=== PATIENT | male | born 1950 | race Caucasian/White ===

== ENCOUNTER → 2021-07-02 12:56 | Outpatient (BNVA) | payer MEDICARE, MEDICAID, SELFPAY | PROVIDERS: Family Provider Physician Assistant; PCP Physician Assistant; Visit Provider Dermatology | DX: M17.11 Unilateral primary osteoarthritis, right knee (principal); M25.562 Pain in left knee; M25.561 Pain in right knee | CPT/HCPCS: 73562 ==

== ENCOUNTER 2021-09-07 19:45 | Emergency (ER) | payer MEDICARE, MEDICAID, SELFPAY ==
[2021-09-07 20:09] VITALS: BP 129/64; PULSE 73; RESP 18; TEMP 36.8; O2SAT 96; BMI 28.5
[2021-09-07 20:33] LABS: Hematocrit 36.1 % (42.0-52.0); Lymphocytes # 1.4 10^3/uL (0.8-4.8); Lymphocytes % 42.6 %; Mean Corpuscular Hemoglobin 29.8 pg (28.0-34.0); Mean Corpuscular Volume 82.8 fl (80-94); Mean Platelet Volume 9.6 fL (7.4-10.4); Monocytes # 0.3 10^3/uL (0.2-0.9); Monocytes % 9.5 %; Neutrophils # 1.62 10^3/uL (1.8-7.7); Neutrophils % 47.9 %; Nucleated Red Blood Cells % 0 %; Platelet Count 190 10^3/cmm (130-400); Red Blood Count 4.36 10^6/uL (4.1-5.3); Red Cell Distribution Width 11.9 % (12.1-15.1); White Blood Count 3.4 10^3/uL (4.0-10.0)
[2021-09-07 20:49] LABS: SARS Covid-2 Antigen Negative (Negative)
[2021-09-07 20:54] LABS: Alanine Aminotransferase 9 U/L (0-41); Albumin Level 3.7 g/dL (3.5-5.2); Alkaline Phosphatase 70 IU/L (40-130); Anion Gap 17.8 (5-19); Aspartate Amino Transferase 17 U/L (0-40); Blood Urea Nitrogen 14 mg/dL (8-23); Carbon Dioxide 22 mmol/L (22-29); Chloride 96 mmol/L (98-107); Globulin 2.7 g/dL (1.3-4.6); Glomerular Filtration Rate 212.7 mL/min (90-130); Glucose 105 mg/dL (65-115); Osmolality Calculated 275 mOsm/kg (285-295); Potassium 3.8 mmol/L (3.5-5.1); Sodium 132 mmol/L (136-145); Total Bilirubin 0.4 mg/dL (0.15-1.2); Total Protein 6.4 g/dL (6.6-8.7)
[2021-09-07 21:03] LABS: Lactate (Lactic Acid level) 0.6 mmol/L (0.5-2.2)
--- NOTE | 2021-09-07 21:09 | XRR_ITS ---
PROCEDURE INFORMATION: Exam: XR Chest Exam date and time: 09/07/2021 9:09 PM Age: 70 years old Clinical indication: Fever; Prior surgery; Surgery date: 6+ months; Surgery type: Ribs TECHNIQUE: Imaging protocol: XR of the chest. Views: 1 view. COMPARISON: CR Chest 2 views* [id number] 01/09/2018 2:22 PM FINDINGS: Lungs: There is ill-defined opacity in the lateral lower right lung which is unchanged since 01/09/2018. Lungs are otherwise clear. Pleural spaces: Unremarkable. No pleural effusion. No pneumothorax. Heart/Mediastinum: Cardiomediastinal contours are unremarkable. Bones/joints: Bones are unremarkable. XR/XR chest 1V portable [id number] IMPRESSION: Chronic nonspecific opacity in the lower right lung, stable since 01/09/2018. No acute pulmonary abnormality. Radiation Dose CTDIVOL = (mGy): DLP = (mGy-cm)
--- NOTE | 2021-09-07 22:40 | W.ED.FEVER ---
HPI - Fever General: Chief Complaint: Fever Stated Complaint: fever Time Seen by Provider: 09/07/21 22:28 History of Present Illness: HPI Narrative: Patient is a 70-year-old male comes to the ED complaining of upper respiratory symptoms. His was just diagnosed with Covid 19. He says that yesterday he started developing a little bit of cough and some nasal drainage and congestion. His cough is dry. He also reports having a subjective fever earlier today, but he never took any antipyretic and his fever resolved. He denies any shortness of breath, chest pain, abdominal pain, nausea/vomiting, acute bladder or bowel symptoms. His main concern here in the ED was to be checked for Covid, since his just tested positive. Patient has not had the COVID-19 vaccination. Associated symptoms: Reports nasal congestion; Deny abdominal pain, flank pain, chills, chest pain, diarrhea, dysuria, headache(s), nausea or vomiting Review of Systems Const: Reports: fever(s) (subjective); Denies: chills or fatigue Eyes: Denies: change in vision or eye discomfort ENMT: Reports: nasal discharge and nasal congestion; Denies: throat pain or odynophagia Card: Denies: chest pain, palpitations, edema, swelling of feet/ankles, dyspnea on exertion or orthopnea Resp: Reports: non-productive cough; Denies: dyspnea or productive cough GI: Denies: abdominal pain, nausea, vomiting, diarrhea, constipation or hematochezia : Denies: flank pain, difficulty urinating, dysuria or hematuria Musc: Denies: neck pain, back pain or extremity swelling Skin/Breast: Denies: rash or new lesions Neuro: Denies: headache(s), numbness in extremities or weakness in extremities Physical Exam Const: COMMON NORMALS: no acute distress, patient oriented x3 and alert GENERAL APPEARANCE: cooperative and comfortable HENMT: COMMON NORMALS: normocephalic HEAD & SCALP: normocephalic MOUTH: Normal oral and palatal mucosa present THROAT: posterior oropharynx normal and uvula midline Eye: COMMON NORMALS: Equal, round and reactive pupils present PUPIL: Yes Equal, round and reactive pupils present Neck/C-Spine: COMMON NORMALS: supple GENERAL: Yes normal visual inspection Resp: COMMON NORMALS: normal respiratory effort, No retractions, No use of accessory muscles and clear to auscultation bilaterally AUSCULTATION: clear to auscultation bilaterally Cardio: COMMON NORMALS: regular rate, regular rhythm, S1 normal heart sound present, S2 normal heart sound present, No gallops present (Cardio), No clicks present (Cardio), No murmurs present (Cardio) and Peripheral pulses 2+ throughout RATE: regular rate RHYTHM: regular rhythm HEART SOUNDS: S1 normal heart sound present and S2 normal heart sound present PERIPHERAL PULSES: Peripheral pulses 2+ throughout GI: COMMON NORMALS: Normal to inspection, nondistended, normoactive bowel sounds present, Soft to palpation, non-tender and no masses PALPATION: Yes Soft to palpation : COMMON NORMALS: Yes no CVA tenderness BLADDER/KIDNEY EXAM: Yes no CVA tenderness Back/Pelvis: COMMON NORMALS: no CVA tenderness Extremity: COMMON NORMALS: normal to inspection Neuro: COMMON NORMALS: patient oriented x3 and moves all extremities SENSORIUM/ORIENTATION: Yes alert Skin: GENERAL SKIN EXAM: dry skin Course Vital Signs: Vital signs: Vital Signs Temperature 99.2 F 09/08/21 01:04 Pulse Rate 73 09/07/21 20:09 Respiratory Rate 18 09/07/21 20:09 Blood Pressure 105/67 09/08/21 01:04 Pulse Oximetry 96 09/07/21 20:09 MDM - Fever MDM Narrative: Medical decision making narrative: Patient is a 70-year-old male comes to the ED with upper respiratory symptoms. His was just diagnosed with COVID-19. His complaint is a nonproductive cough and nasal drainage and congestion. Symptoms started yesterday. Denies any chest pain or shortness of breath. Vitals stable and O2 sat 96% on room air. Exam is benign. Sodium 132 but the rest of CBC, CMP and UA was unremarkable. Rapid Covid was negative. Lactic was 0.6. Chest x-ray showed no acute findings. Patient was given IV fluids and a Covid PCR test was done and is pending. Patient was discharged with upper respiratory infection and discharged home with a prescription for azithromycin and prednisone. He was told to follow-up with his PCP in the next 5 to 7 days for reevaluation and the hospital contact him if his Covid lab comes back positive. I informed him of the monoclonal antibody infusion treatment and he said he would be interested in it and will talk to his doctor about it if his Covid test comes back positive. Return to ED precautions given. Patient understood agree with plan. Lab Data: Attestation: I reviewed the patient's lab results. Labs: Lab Results 09/07/21 09/07/21 09/07/21 20:10 20:10 20:10 WBC 3.4 10^3/uL L 10^ 3/uL (4.0-10.0) RBC 4.36 10^6/uL 10^6 /uL (4.1-5.3) Hgb 13.0 g/dL g/dL (11.7-16.6) Hct 36.1 % L % (42.0-52.0) MCV 82.8 fl fl (80-94) MCH 29.8 pg pg (28.0-34.0) MCHC 36.0 g/dL g/dL (30.0-36.0) RDW 11.9 % L % (12.1-15.1) Plt Count 190 10^3/cmm 10^3 /cmm (130-400) MPV 9.6 fL fL (7.4-10.4) Neut % (Auto) 47.9 % % Lymph % (Auto) 42.6 % % [place] % (Auto) 9.5 % % Eos % (Auto) 0.0 % % Baso % (Auto) 0.0 % % Neut # (Auto) 1.62 10^3/uL L 10 ^3/uL (1.8-7.7) Lymph # (Auto) 1.4 10^3/uL 10^3/ uL (0.8-4.8) [place] # (Auto) 0.3 10^3/uL 10^3/ uL (0.2-0.9) Eos # (Auto) 0.0 10^3/uL 10^3/ uL (0.0-0.8) Baso # (Auto) 0.0 10^3/uL 10^3/ uL (0.0-0.1) Nucleated RBC % (a uto) 0 % % Nucleated RBCs # 0.0 /100WBC /100W BC Sodium 132 mmol/L L mmol /L (136-145) Potassium 3.8 mmol/L mmol/L (3.5-5.1) Chloride 96 mmol/L L mmol/ L (98-107) Carbon Dioxide 22 mmol/L mmol/L (22-29) Anion Gap 17.8 (5-19) BUN 14 mg/dL mg/dL (8-23) Creatinine 0.4 mg/dL L mg/dL (0.7-1.2) GFR Calculation 212.7 mL/min H mL /min (90-130) Glucose 105 mg/dL mg/dL (65-115) Calculated Osmolal ity 275 mOsm/kg L mOs m/kg (285-295) Lactate 0.6 mmol/L mmol/L (0.5-2.2) Calcium 8.0 mg/dL L mg/dL (8.5-10.5) Total Bilirubin 0.4 mg/dL mg/dL (0.15-1.2) AST 17 U/L U/L (0-40) ALT 9 U/L U/L (0-41) Alkaline Phosphata se 70 IU/L IU/L (40-130) Total Protein 6.4 g/dL L g/dL (6.6-8.7) Albumin 3.7 g/dL g/dL (3.5-5.2) Globulin 2.7 g/dL g/dL (1.3-4.6) Urine Color Urine Appearance Urine pH Ur Specific Gravit y Urine Protein Urine Glucose (UA) Urine Ketones Urine Blood Urine Nitrate Urine Bilirubin Urine Urobilinogen Ur Leukocyte Sharon ase SARS-CoV-2 Ag (Rap id) 09/07/21 09/07/21 20:10 23:00 WBC RBC Hgb Hct MCV MCH MCHC RDW Plt Count MPV Neut % (Auto) Lymph % (Auto) [place] % (Auto) Eos % (Auto) Baso % (Auto) Neut # (Auto) Lymph # (Auto) [place] # (Auto) Eos # (Auto) Baso # (Auto) Nucleated RBC % (a uto) Nucleated RBCs # Sodium Potassium Chloride Carbon Dioxide Anion Gap BUN Creatinine GFR Calculation Glucose Calculated Osmolal ity Lactate Calcium Total Bilirubin AST ALT Alkaline Phosphata se Total Protein Albumin Globulin Urine Color Yellow (Yellow) Urine Appearance Hazy A (CLEAR) Urine pH 6.5 (5-7) Ur Specific Gravit y 1.020 (1.005-1.030) Urine Protein Neg (Negative) Urine Glucose (UA) Norm (Normal) Urine Ketones 1+ H (Negative) Urine Blood Neg (Negative) Urine Nitrate Negative (Negative) Urine Bilirubin Neg (Negative) Urine Urobilinogen 1 mg/dL H mg/dL (Negative) Ur Leukocyte Sharon ase Negative (Negative) SARS-CoV-2 Ag (Rap id) Negative (Negative) Imaging Data^: CXR: Attestation: I personally reviewed and interpreted this imaging study as follows: Radiologist's impression: [address] [address] XRay Report Signed Patient: Adarsh Pennington Unit #: [id number] : [id number] Age/Sex: 70 / M ADM Date: 09/07/21 Loc: ER Room/Bed: Attending Dr: Ordering Provider/Ordering MD: Home Felix MD Date of Service: 09/07/21 Procedure(s): XR chest 1V portable [id number] Accession Number(s): [id number] Report Number: [id number] PROCEDURE INFORMATION: Exam: XR Chest Exam date and time: 09/07/2021 9:09 PM Age: 70 years old Clinical indication: Fever; Prior surgery; Surgery date: 6+ months; Surgery type: Ribs TECHNIQUE: Imaging protocol: XR of the chest. Views: 1 view. COMPARISON: CR Chest 2 views* [id number] 01/09/2018 2:22 PM FINDINGS: Lungs: There is ill-defined opacity in the lateral lower right lung which is unchanged since 01/09/2018. Lungs are otherwise clear. Pleural spaces: Unremarkable. No pleural effusion. No pneumothorax. Heart/Mediastinum: Cardiomediastinal contours are unremarkable. Bones/joints: Bones are unremarkable. XR/XR chest 1V portable [id number] IMPRESSION: Chronic nonspecific opacity in the lower right lung, stable since 01/09/2018. No acute pulmonary abnormality. Radiation Dose CTDIVOL = (mGy): DLP = (mGy-cm) Dictated By: Timmy South MD Signed By: Timmy South MD Signed Date/Time: 09/07/212149 DD/ 08 Discharge Plan Discharge Patient Disposition: Home Clinical Impression: Upper respiratory infection with cough and congestion Condition: Stable Prescriptions: New azithromycin 250 mg tablet See Rx Instructions .ROUTE .COMPLEX Qty: 6 RF: 0 prednisone 20 mg tablet 20 mg PO BID 5 Days Qty: 10 RF: 0 Discharge Orders: Discharge ED (Routine); Ordered 09/08/21 Ordered By: Dimitri Camilo Referrals: Jovani Mcnally [Primary Care Provider] - Discharge Diet: Regular Discharge Activity: Increase activity as tolerated Patient Instructions: Upper Respiratory Infection (DC) Activity Restrictions/Additional Instructions: Follow-up with medical provider as directed in 3 to 5 days for reevaluation. Your rapid COVID-19 test was negative here in the ED. The Covid PCR test is pending and they will call you with results in the next 24 to 48 hours. Take medications as prescribed. Return to the ER or your medical provider if condition worsens. Please read and understand discharge instructions. Thank you for choosing [facility] for your healthcare needs today. Please realize this is an emergency room and that we are providing you with a medical screening exam and this may not be complete and all inclusive of all the testing and or work up that you may need to determine your ailment or severity of your illness. It is very important that you follow up as instructed or that you return to the Emergency Department should you have concerns or if your condition changes or worsens in any way. Coding Level of Care Code ED Delivery Driver for Dayo [place]aco Exam Comprehensive
[2021-09-07 23:16] LABS: Add Urine Microscopic? NO; Charge for UA Resulting for Rev
[2021-09-07 23:26] LABS: Bilirubin Urine Neg (Negative); Blood Urine Neg (Negative); Glucose Urine UA Norm (Normal); Ketones Urine 1+ (Negative); Leukocyte Esterase Urine Negative (Negative); Nitrate Urine Negative (Negative); Protein Urine Neg (Negative); Urine Appearance Hazy (CLEAR); Urine Color Yellow (Yellow); Urobilinogen Urine 1 mg/dL (Negative); pH Urine 6.5 (5-7)
[2021-09-07] MEDS: sodium chloride 0.9% 500 ML 999 ML IV (23:29)
[2021-09-08 01:04] VITALS: BP 105/67; TEMP 37.3
== END 2021-09-08 00:10 | disposition home or self-care (01) ==
PROVIDERS: Emergency Medicine; Emergency Provider Physician Assistant; PCP Physician Assistant
DX: J06.9 Acute upper respiratory infection, unspecified (principal); Z20.822 Contact with and (suspected) exposure to COVID-19
CPT/HCPCS: 71045; 80053; 81003; 83605; 85025; 87426; 99283; J7040

== ENCOUNTER 2021-11-23 08:31 | Inpatient (IN) | payer MEDICARE, MEDICAID, SELFPAY ==
[2021-11-23] VITALS (104 sets, daily range): BP systolic 101–163; BP diastolic 62–103; PULSE 89–118; RESP 16–23; TEMP 37; O2SAT 95–99
--- NOTE | 2021-11-23 08:54 | XR_ITS ---
WS: [id number] CHEST XRAY TECHNIQUE: Portable chest. CLINICAL INFORMATION: SOB COMPARISON: September 07, 2021 6 FINDINGS: Heart: Normal cardiac silhouette. Tortuous thoracic aorta. Lungs: Chronic emphysematous changes. Chronic patchy infiltrates in right lower lobe with pleural david ques unchanged since September 07, 2021. Left lung is well aerated. Bones: Thoracic curve convex left. Hypertrophic changes thoracic spine. XR/XR chest 1V portable [id number] IMPRESSION: 1. Chronic patchy infiltrates in right lower lobe with pleural plaques unchang ed since September 07, 2021. No new infiltrates. 2. No other significant changes from previous.
--- NOTE | 2021-11-23 08:55 | W.ED.SOB ---
Documented by User: BUBBA Mosqueda 11/23/21 15:14 HPI - SOB/Dyspnea General: Chief Complaint: Shortness of Breath/Dyspnea Stated Complaint: SOB, BRONCHITIS, FATIGUE Time Seen by Provider: 11/23/21 08:48 Source: patient Mode of arrival: EMS Limitations: no limitations History of Present Illness: HPI Narrative: Patient is a 71-year-old male who presents to ED today with a complaint of shortness of breath and difficulty breathing over the last few days (although states this has been present for closer to two months). Patient states he was seen here 2 weeks ago and diagnosed with bronchitis and placed on antibiotics (review of documentation states his last visit here was in August-at that time he had had positive COVID exposure-rapid COVID was negative-PCR was supposed to be pending but looks like was never ran). He was diagnosed with bronchitis and placed on antibiotics. He states he has been seen again for similar symptoms through PCP and placed on Clindamycin-still taking this. Patient's triage states he is on 2L O2 via nasal cannula at baseline however patient tells me he does not normally wear oxygen. He has not been running fevers. He has had a a little bit of a cough but points to this throat like he needs to clear it. He is not having any chest pains. No abdominal pain, vomiting, diarrhea. MD elicited complaint: shortness of breath and cough Onset (ago): day(s) Timing: constant Severity: moderate Exacerbating factors: exertion Relieving factors: nothing Associated symptoms: Reports chest congestion; Deny abdominal pain, chest pain, extremity pain, fever(s), hemoptysis, lightheadedness, nausea, palpitations, syncope or vomiting Related Data: Home oxygen amount: none Review of Systems Const: Reports: fatigue; Denies: fever(s), chills or body aches ENMT: Denies: throat pain, odynophagia, nasal discharge or nasal congestion Card: Reports: dyspnea on exertion; Denies: chest pain, palpitations, irregular heart rhythm, edema, lightheadedness, syncope or pre-syncope Resp: Reports: dyspnea, productive cough and chest congestion; Denies: wheezing or hemoptysis GI: Denies: abdominal pain, nausea, vomiting or diarrhea Musc: Denies: neck pain, back pain, extremity pain or joint pain Skin/Breast: Denies: rash Neuro: Denies: headache(s) Physical Exam Const: COMMON NORMALS: patient oriented x3, no limitations and alert GENERAL APPEARANCE: cooperative and in distress (mild respiratory distress ) ORIENTATION/CONSCIOUSNESS: Yes awake, Yes oriented to person, Yes oriented to place and Yes oriented to time HENMT: COMMON NORMALS: normocephalic and atraumatic HEAD & SCALP: normocephalic and atraumatic Neck/C-Spine: COMMON NORMALS: full ROM and no lymphadenopathy GENERAL: No anterior neck swelling and No submandibular swelling Lymph: LYMPHATIC: no lymphadenopathy noted Chest: COMMONS NORMALS: normal inspection of the chest and normal palpation of entire chest wall Resp: EFFORT & INSPECTION: Yes tachypneic, Yes respiratory distress (stridor noted at rest), Yes labored and Yes uses accessory muscles AUSCULTATION: other (upper airway noise) Cardio: COMMON NORMALS: regular rhythm RATE: tachycardic RHYTHM: regular rhythm GI: COMMON NORMALS: Normal to inspection, nondistended, normoactive bowel sounds present, Soft to palpation, non-tender and no masses PALPATION: Yes Soft to palpation Extremity: COMMON NORMALS: normal to inspection GENERAL: Yes normal exam except as noted Neuro: CHRIS COMA SCALE: document GCS findings Chris coma scale eye opening: Spontaneous Chris coma scale verbal response: Orientated [place] coma scale motor response: Obey commands Chris coma scale total score: 15 COMMON NORMALS: patient oriented x3 SENSORIUM/ORIENTATION: Yes alert, Yes oriented to person, Yes oriented to place and Yes oriented to time Skin: COMMON NORMALS: no rashes or lesions noted GENERAL SKIN EXAM: no rashes or lesions noted Course Consultations: Consultation #1: Dr. Cerda-stated he would graciously consult on patient and take to OR for tracheostomy if we had bed availability (which we do not); he stated he did not recommend this patient to be an ER HOLD until we had a bed and recommended transfer Vital Signs: Vital signs: Vital Signs Temperature 97.7 F 11/24/21 00:32 Pulse Rate 90 11/24/21 19:00 Respiratory Rate 23 H 11/24/21 19:00 Blood Pressure 125/70 11/24/21 19:00 Pulse Oximetry 96 11/24/21 19:00 MDM - SOB/Dyspnea Lab Data : 11/23/21 10:21 11/23/21 10:21 Labs/Radiology: Radiology Impressions Neck CT 11/23/21 11:38 IMPRESSION: 1. Irregular soft tissue mass involving the supraglottic and glottic airway centered in the left piriform sinus involving the vocal cords. This results in severe left to right narrowing of the glottis. Findings most compatible with neoplasm. Recommend direct visualization and biopsy. 2. Involvement of the left aryepiglottic fold extending into the left piriform sinus. Erosive changes involving the left greater than right thyroid cartilage, cricoid cartilage and arytenoids. 3. Involvement of the anterior commissure with midline crossing. 4. 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 This can be further evaluated with PET CT or MRI. 5. No visualized cervical lymphadenopathy. 6. Retention cyst right maxillary sinus. 7. Normal posterior nasopharynx and parapharyngeal fat. Notified BUBBA Mosqueda at 11/23/2021 2:40 PM. Chest X-Ray 11/24/21 08:04 IMPRESSION: Interval tracheostomy placement as above. Laboratory Results WBC 8.0 10^3/uL (4.0-10.0) 11/23/21 10:21 RBC 4.90 10^6/uL (4.1-5.3) 11/23/21 10:21 Hgb 14.8 g/dL (11.7-16.6) 11/23/21 10:21 Hct 42.6 % (42.0-52.0) 11/23/21 10:21 MCV 86.9 fl (80-94) 11/23/21 10:21 MCH 30.2 pg (28.0-34.0) 11/23/21 10:21 MCHC 34.7 g/dL (30.0-36.0) 11/23/21 10:21 RDW 12.5 % (12.1-15.1) 11/23/21 10:21 Plt Count 307 10^3/cmm (130-400) 11/23/21 10:21 MPV 9.4 fL (7.4-10.4) 11/23/21 10:21 Neut % (Auto) 69.5 % 11/23/21 10:21 Lymph % (Auto) 23.5 % 11/23/21 10:21 Andrew % (Auto) 6.4 % 11/23/21 10:21 Eos % (Auto) 0.1 % 11/23/21 10:21 Baso % (Auto) 0.4 % 11/23/21 10:21 Neut # (Auto) 5.57 10^3/uL (1.8-7.7) 11/23/21 10:21 Lymph # (Auto) 1.9 10^3/uL (0.8-4.8) 11/23/21 10:21 Andrew # (Auto) 0.5 10^3/uL (0.2-0.9) 11/23/21 10:21 Eos # (Auto) 0.0 10^3/uL (0.0-0.8) 11/23/21 10:21 Baso # (Auto) 0.0 10^3/uL (0.0-0.1) 11/23/21 10:21 Nucleated RBC % (auto) 0 % 11/23/21 10:21 Nucleated RBCs # 0.0 /100WBC 11/23/21 10:21 D-Dimer 0.54 ug/mIFEU (0-0.59) 11/23/21 11:01 Specimen Type Arterial 11/23/21 10:32 Sample Site Brachial, right 11/23/21 10:32 ABG pH 7.40 (7.35-7.45) 11/23/21 10:32 ABG pCO2 51.8 mmHg (35-45) H 11/23/21 10:32 ABG pO2 154.0 mmHg (80.0-100.0) H 11/23/21 10:32 ABG HCO3 31.8 mmol/L (22-26) H 11/23/21 10:32 ABG O2 Saturation 99.8 11/23/21 10:32 ABG Base Excess 5.4 mmol/L (-2.0-2.0) H 11/23/21 10:32 [place]ura Test N/a 11/23/21 10:32 A-a O2 Gradient 1.1 mmHg (5-10) L 11/23/21 10:32 Hematocrit 46.6 % (42-52) 11/23/21 10:32 Hgb O2 Saturation 99.0 % (95-100) 11/23/21 10:32 Carboxyhemoglobin 0.6 %THgb (0.4-20.1) 11/23/21 10:32 Methemoglobin 0.2 % (0.4-1.5) L 11/23/21 10:32 Total Hemoglobin 15.2 g/dL (14-18) 11/23/21 10:32 Sodium 139.0 mmol/L (131-143) 11/23/21 10:32 Potassium 4.2 mmol/L (3.5-5.0) 11/23/21 10:32 Glucose 101.0 mg/dL (70-115) 11/23/21 10:32 Ionized Calcium 1.2 mmol/L (1.1-1.4) 11/23/21 10:32 O2 Delivery Device Nc 11/23/21 10:32 O2 Liters/Min 3.0 % 11/23/21 10:32 FiO2 32.0 % 11/23/21 10:32 Supervisor Vacuum Metalizing ID Amh 11/23/21 10:32 Sodium 132 mmol/L (136-145) L 11/23/21 10:21 Potassium 4.3 mmol/L (3.5-5.1) 11/23/21 10:21 Chloride 97 mmol/L (98-107) L 11/23/21 10:21 Carbon Dioxide 20 mmol/L (22-29) L 11/23/21 10:21 Anion Gap 19.3 (5-19) H 11/23/21 10:21 BUN 13 mg/dL (8-23) 11/23/21 10:21 Creatinine 0.4 mg/dL (0.7-1.2) L 11/23/21 10:21 GFR Calculation Not Reportable 11/23/21 10:21 Glucose 92 mg/dL (65-115) 11/23/21 10:21 Calculated Osmolality 274 mOsm/kg (285-295) L 11/23/21 10:21 Lactic Acid 1.0 mmol/L (0.5-2.2) 11/23/21 10:21 Calcium 9.6 mg/dL (8.5-10.5) 11/23/21 10:21 Total Bilirubin 0.4 mg/dL (0.15-1.2) 11/23/21 10:21 AST 20 U/L (0-40) 11/23/21 10:21 ALT 10 U/L (0-41) 11/23/21 10:21 Alkaline Phosphatase 86 IU/L (40-130) 11/23/21 10:21 Troponin T Baseline 21 ng/L (0-15) H 11/23/21 10:21 Troponin T 120 Minute 25.66 ng/L (0-15) H 11/23/21 11:28 Delta Troponin T 4.66 ABS# (0-10) 11/23/21 11:28 Troponin T Hi Sens 6Hr 37.75 ng/L (0-15) H 11/23/21 17:00 Troponin T Hi Sens 6Hr Delta 16.75 ng/L (0-12) H* 11/23/21 17:00 NT-Pro-B Natriuret Pep 82 pg/mL (0-125) 11/23/21 10:21 Total Protein 6.9 g/dL (6.6-8.7) 11/23/21 10:21 Albumin 4.0 g/dL (3.5-5.2) 11/23/21 10:21 Globulin 2.9 g/dL (1.3-4.6) 11/23/21 10:21 Procalcitonin 0.04 ng/mL (0-0.5) 11/23/21 10:21 SARS-CoV-2 Ag (Rapid) Negative (Negative) 11/23/21 10:00 Discharge Plan Discharge Patient Disposition: Admitted As Inpatient Admit Provider: Ezio Cerda Clinical Impression: Stridor, Supraglottic mass Condition: Stable Coding Level of Care Code ED Battery Container Finishing Hand for Chg Fwd Exam Comprehensive Documented by User: Home Felix MD 11/24/21 20:37 HPI - SOB/Dyspnea General: Chief Complaint: Shortness of Breath/Dyspnea Stated Complaint: SOB, BRONCHITIS, FATIGUE Time Seen by Provider: 11/23/21 08:48 Physical Exam Neuro: CHRIS COMA SCALE: document GCS findings Chris coma scale total score: 15 Course Vital Signs: Vital signs: Vital Signs Temperature 97.7 F 11/24/21 00:32 Pulse Rate 90 11/24/21 19:00 Respiratory Rate 23 H 11/24/21 19:00 Blood Pressure 125/70 11/24/21 19:00 Pulse Oximetry 96 11/24/21 19:00 MDM - SOB/Dyspnea Medical Decision Making Patient is a 71-year-old male presented to the emergency room with stridor and difficulty breathing. Patient states that the symptoms has been going on for last 3 to 4 days however per patient's , still has been progressively getting worse for the last 3-month. On CT scan of the neck patient is found to have necrotic lesion in the glottic/subglottic area. Patient continue to be satting well on room air however at rest but has noted to be stridorous. Patient received steroids for possible laryngeal edema. At the present time, case was discussed by physician business services assistant provider Jessica Flores with Dr. Regan from ENT who tells me that given this there is no beds, patient will not be able to undergo tracheostomy. At the present time, waiting for transfer to outside hospital for tracheostomy. Case signed out ot Dr. Raygoza. Patient presented here with stridor does have a supraglottic mass I did speak to Dr. Cerda who plans on taking patient to the OR tomorrow we do have an ICU bed here available currently will admit to the ICU under hospitalist with Dr. Regan consulted. Lab Data : 11/23/21 10:21 11/23/21 10:21 Labs/Radiology: Radiology Impressions Neck CT 11/23/21 11:38 IMPRESSION: 1. Irregular soft tissue mass involving the supraglottic and glottic airway centered in the left piriform sinus involving the vocal cords. This results in severe left to right narrowing of the glottis. Findings most compatible with neoplasm. Recommend direct visualization and biopsy. 2. Involvement of the left aryepiglottic fold extending into the left piriform sinus. Erosive changes involving the left greater than right thyroid cartilage, cricoid cartilage and arytenoids. 3. Involvement of the anterior commissure with midline crossing. 4. 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 This can be further evaluated with PET CT or MRI. 5. No visualized cervical lymphadenopathy. 6. Retention cyst right maxillary sinus. 7. Normal posterior nasopharynx and parapharyngeal fat. Notified BUBBA Mosqueda at 11/23/2021 2:40 PM. Chest X-Ray 11/24/21 08:04 IMPRESSION: Interval tracheostomy placement as above. Laboratory Results WBC 8.0 10^3/uL (4.0-10.0) 11/23/21 10:21 RBC 4.90 10^6/uL (4.1-5.3) 11/23/21 10:21 Hgb 14.8 g/dL (11.7-16.6) 11/23/21 10:21 Hct 42.6 % (42.0-52.0) 11/23/21 10:21 MCV 86.9 fl (80-94) 11/23/21 10:21 MCH 30.2 pg (28.0-34.0) 11/23/21 10:21 MCHC 34.7 g/dL (30.0-36.0) 11/23/21 10:21 RDW 12.5 % (12.1-15.1) 11/23/21 10:21 Plt Count 307 10^3/cmm (130-400) 11/23/21 10:21 MPV 9.4 fL (7.4-10.4) 11/23/21 10:21 Neut % (Auto) 69.5 % 11/23/21 10:21 Lymph % (Auto) 23.5 % 11/23/21 10:21 Andrew % (Auto) 6.4 % 11/23/21 10:21 Eos % (Auto) 0.1 % 11/23/21 10:21 Baso % (Auto) 0.4 % 11/23/21 10:21 Neut # (Auto) 5.57 10^3/uL (1.8-7.7) 11/23/21 10:21 Lymph # (Auto) 1.9 10^3/uL (0.8-4.8) 11/23/21 10:21 Andrew # (Auto) 0.5 10^3/uL (0.2-0.9) 11/23/21 10:21 Eos # (Auto) 0.0 10^3/uL (0.0-0.8) 11/23/21 10:21 Baso # (Auto) 0.0 10^3/uL (0.0-0.1) 11/23/21 10:21 Nucleated RBC % (auto) 0 % 11/23/21 10:21 Nucleated RBCs # 0.0 /100WBC 11/23/21 10:21 D-Dimer 0.54 ug/mIFEU (0-0.59) 11/23/21 11:01 Specimen Type Arterial 11/23/21 10:32 Sample Site Brachial, right 11/23/21 10:32 ABG pH 7.40 (7.35-7.45) 11/23/21 10:32 ABG pCO2 51.8 mmHg (35-45) H 11/23/21 10:32 ABG pO2 154.0 mmHg (80.0-100.0) H 11/23/21 10:32 ABG HCO3 31.8 mmol/L (22-26) H 11/23/21 10:32 ABG O2 Saturation 99.8 11/23/21 10:32 ABG Base Excess 5.4 mmol/L (-2.0-2.0) H 11/23/21 10:32 [place]ura Test N/a 11/23/21 10:32 A-a O2 Gradient 1.1 mmHg (5-10) L 11/23/21 10:32 Hematocrit 46.6 % (42-52) 11/23/21 10:32 Hgb O2 Saturation 99.0 % (95-100) 11/23/21 10:32 Carboxyhemoglobin 0.6 %THgb (0.4-20.1) 11/23/21 10:32 Methemoglobin 0.2 % (0.4-1.5) L 11/23/21 10:32 Total Hemoglobin 15.2 g/dL (14-18) 11/23/21 10:32 Sodium 139.0 mmol/L (131-143) 11/23/21 10:32 Potassium 4.2 mmol/L (3.5-5.0) 11/23/21 10:32 Glucose 101.0 mg/dL (70-115) 11/23/21 10:32 Ionized Calcium 1.2 mmol/L (1.1-1.4) 11/23/21 10:32 O2 Delivery Device Nc 11/23/21 10:32 O2 Liters/Min 3.0 % 02/01/22 10:32 FiO2 32.0 % 11/23/21 10:32 Supervisor Vacuum Metalizing ID Amh 11/23/21 10:32 Sodium 132 mmol/L (136-145) L 11/23/21 10:21 Potassium 4.3 mmol/L (3.5-5.1) 11/23/21 10:21 Chloride 97 mmol/L (98-107) L 11/23/21 10:21 Carbon Dioxide 20 mmol/L (22-29) L 11/23/21 10:21 Anion Gap 19.3 (5-19) H 11/23/21 10:21 BUN 13 mg/dL (8-23) 11/23/21 10:21 Creatinine 0.4 mg/dL (0.7-1.2) L 11/23/21 10:21 GFR Calculation Not Reportable 11/23/21 10:21 Glucose 92 mg/dL (65-115) 11/23/21 10:21 Calculated Osmolality 274 mOsm/kg (285-295) L 11/23/21 10:21 Lactic Acid 1.0 mmol/L (0.5-2.2) 11/23/21 10:21 Calcium 9.6 mg/dL (8.5-10.5) 11/23/21 10:21 Total Bilirubin 0.4 mg/dL (0.15-1.2) 11/23/21 10:21 AST 20 U/L (0-40) 11/23/21 10:21 ALT 10 U/L (0-41) 11/23/21 10:21 Alkaline Phosphatase 86 IU/L (40-130) 11/23/21 10:21 Troponin T Baseline 21 ng/L (0-15) H 11/23/21 10:21 Troponin T 120 Minute 25.66 ng/L (0-15) H 11/23/21 11:28 Delta Troponin T 4.66 ABS# (0-10) 11/23/21 11:28 Troponin T Hi Sens 6Hr 37.75 ng/L (0-15) H 11/23/21 17:00 Troponin T Hi Sens 6Hr Delta 16.75 ng/L (0-12) H* 11/23/21 17:00 NT-Pro-B Natriuret Pep 82 pg/mL (0-125) 11/23/21 10:21 Total Protein 6.9 g/dL (6.6-8.7) 11/23/21 10:21 Albumin 4.0 g/dL (3.5-5.2) 11/23/21 10:21 Globulin 2.9 g/dL (1.3-4.6) 11/23/21 10:21 Procalcitonin 0.04 ng/mL (0-0.5) 11/23/21 10:21 SARS-CoV-2 Ag (Rapid) Negative (Negative) 11/23/21 10:00 Discharge Plan Discharge Patient Disposition: Admitted As Inpatient Admit Provider: Ezio Cerda Clinical Impression: Stridor, Supraglottic mass Condition: Stable Coding Level of Care Code ED Battery Container Finishing Hand for Chg Fwd Exam Comprehensive Documented by User: Tiara Raygoza MD 11/24/21 01:09 HPI - SOB/Dyspnea General: Chief Complaint: Shortness of Breath/Dyspnea Stated Complaint: SOB, BRONCHITIS, FATIGUE Time Seen by Provider: 11/23/21 08:48 Physical Exam Neuro: CHRIS COMA SCALE: document GCS findings [place] coma scale total score: 15 Course Vital Signs: Vital signs: Vital Signs Temperature 97.7 F 11/24/21 00:32 Pulse Rate 90 11/24/21 19:00 Respiratory Rate 23 H 11/24/21 19:00 Blood Pressure 125/70 11/24/21 19:00 Pulse Oximetry 96 11/24/21 19:00 MDM - SOB/Dyspnea Medical Decision Making Patient is a 71-year-old male presented to the emergency room with stridor and difficulty breathing. Patient states that the symptoms has been going on for last 3 to 4 days however per patient's , still has been progressively getting worse for the last 3-month. On CT scan of the neck patient is found to have necrotic lesion in the glottic/subglottic area. Patient continue to be satting well on room air however at rest but has noted to be stridorous. Patient received steroids for possible laryngeal edema. At the present time, case was discussed by physician business services assistant provider Jessica Flores with Dr. Regan from ENT who tells me that given this there is no beds, patient will not be able to undergo tracheostomy. At the present time, waiting for transfer to outside hospital tracheostomy. Case signed out ot Dr. Raygoza. Patient presented here with stridor does have a supraglottic mass I did speak to Dr. Nichole who plans on taking patient to the OR tomorrow we do have an ICU bed here available currently will admit to the ICU under hospitalist with Dr. Regan consulted. Lab Data : 11/23/21 10:21 11/23/21 10:21 Labs/Radiology: Radiology Impressions Neck CT 11/23/21 11:38 IMPRESSION: 1. Irregular soft tissue mass involving the supraglottic and glottic airway centered in the left piriform sinus involving the vocal cords. This results in severe left to right narrowing of the glottis. Findings most compatible with neoplasm. Recommend direct visualization and biopsy. 2. Involvement of the left aryepiglottic fold extending into the left piriform sinus. Erosive changes involving the left greater than right thyroid cartilage, cricoid cartilage and arytenoids. 3. Involvement of the anterior commissure with midline crossing. 4. 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 This can be further evaluated with PET CT or MRI. 5. No visualized cervical lymphadenopathy. 6. Retention cyst right maxillary sinus. 7. Normal posterior nasopharynx and parapharyngeal fat. Notified BUBBA Mosqueda at 11/23/2021 2:40 PM. Chest X-Ray 11/24/21 08:04
--- NOTE | 2021-11-23 09:25 | ECG_ITS ---
[facility] Test Date: 2021-11-23 Pat Name: Adarsh Pennington Department: Room: Gender: Male Networking Administrator: : 1950 Requested By: Jessica Flores Order Number: [id number] Rina MD: Chula Velasquez M.D. Measurements Intervals [place] Rate: 106 P: 60 VT: 144 QRS: 70 QRSD: 85 T: 40 QT: 313 QTc: 417 Interpretive Statements SINUS TACHYCARDIA ABNORMAL RHYTHM ECG Compared to ECG 08/24/2018 10:17:14 Sinus rhythm no longer present Electronically Signed On 11-23-2021 17:08:42 ROLLING MACHINE OPERATOR AUTOMATIC by Chula Velasquez M.D. [id number]
[2021-11-23 10:34] LABS: Basophils % 0.4 %; Eosinophils % 0.1 %; Hematocrit 42.6 % (42.0-52.0); Hemoglobin 14.8 g/dL (11.7-16.6); Lymphocytes # 1.9 10^3/uL (0.8-4.8); Lymphocytes % 23.5 %; Mean Corpuscular HGB Conc 34.7 g/dL (30.0-36.0); Mean Corpuscular Hemoglobin 30.2 pg (28.0-34.0); Mean Corpuscular Volume 86.9 fl (80-94); Mean Platelet Volume 9.4 fL (7.4-10.4); Monocytes # 0.5 10^3/uL (0.2-0.9); Monocytes % 6.4 %; Neutrophils # 5.57 10^3/uL (1.8-7.7); Neutrophils % 69.5 %; Nucleated Red Blood Cells % 0 %; Platelet Count 307 10^3/cmm (130-400); Red Cell Distribution Width 12.5 % (12.1-15.1)
[2021-11-23 10:44] LABS: ABG PCO2 51.8 mmHg (35-45); Alveolar-Arterial Oxygen Gradi 1.1 mmHg (5-10); Arterial Blood Gas Hematocrit 46.6 % (42-52); Base Excess ABG 5.4 mmol/L (-2.0-2.0); Blood Gas Operator Identificat AMH; Blood Gas Sample Site Brachial, right; Blood Gas Sample Type Arterial; Carboxyhemoglobin 0.6 %THgb (0.4-20.1); HCO3 ABG 31.8 mmol/L (22-26); Ionized Calcium Level - ABG 1.2 mmol/L (1.1-1.4); Methemoglobin 0.2 % (0.4-1.5); Oxygen Device NC; Oxygen Saturation ABG 99.8; Potassium Level - ABG 4.2 mmol/L (3.5-5.0); Total Hemoglobin 15.2 g/dL (14-18)
[2021-11-23 10:56] LABS: SARS Covid-2 Antigen Negative (Negative)
[2021-11-23 11:18] LABS: NT Pro B Type Natriuretic Pept 82 pg/mL (0-125); Procalcitonin 0.04 ng/mL (0-0.5)
[2021-11-23 11:22] LABS: Troponin(5th) Baseline 21 ng/L (0-15)
[2021-11-23 11:26] LABS: D Dimer 0.54 ug/mIFEU (0-0.59)
[2021-11-23 11:29] LABS: Alanine Aminotransferase 10 U/L (0-41); Alkaline Phosphatase 86 IU/L (40-130); Blood Urea Nitrogen 13 mg/dL (8-23); Calcium 9.6 mg/dL (8.5-10.5); Carbon Dioxide 20 mmol/L (22-29); Chloride 97 mmol/L (98-107); Globulin 2.9 g/dL (1.3-4.6); Glucose 92 mg/dL (65-115); Osmolality Calculated 274 mOsm/kg (285-295); Sodium 132 mmol/L (136-145); Total Bilirubin 0.4 mg/dL (0.15-1.2); Total Protein 6.9 g/dL (6.6-8.7)
[2021-11-23 11:30] LABS: Anion Gap 19.3 (5-19); Aspartate Amino Transferase 20 U/L (0-40); Potassium 4.3 mmol/L (3.5-5.1)
--- NOTE | 2021-11-23 11:38 | CT_ITS ---
WS: [id number] CT NECK TECHNIQUE: Contrast-enhanced CT of the neck with coronal and sagittal reformatted images. CLINICAL INFORMATION: stridor, trouble breathing COMPARISON: None. DLP: 444.[address] scans at [facility] use at least one of these dose optimization techniques: automated e xposure control; mA and/or kV adjustment per patient size (includes targeted exams where dose is matc hed to clinical indication); or iterative reconstruction. FINDINGS: Large soft tissue mass involving the left aryepiglottic fold with filling of the left piriform sinus. This is mainly centered at the level of the vocal cords with erosive changes involving the arytenoid s and cricoid cartilage. Involvement of the left greater than right thyroid cartilage. Severe left to right narrowing of the glottis. Subglottic airway is patent. Involvement of the anterior commissure crossing midline. Irregular soft tissue mass measures approximately 3.0 x 2.0 x 2.1 CM. Diffuse filli ng of the paraglottic space left greater than right extending to the posterior pharyngeal wall. Small retention cyst right maxillary sinus. Mastoid air cells and paranasal sinuses are well aerated. Normal parapharyngeal fat. Parotid glands are normal. No visualized cervical lymphadenopathy. Modera te right greater than left carotid bulb calcification. Lung apices are well aerated. Vague sclerotic foci within the cervical spine and upper thoracic spine nonspecific but suspicious fo r metastatic disease more prominent at C3-C6. This can be further evaluated with PET CT or MRI. Disc osteophyte complexes at C4-5 and C5-6. CT/CT neck w con* [id number] IMPRESSION: 1. Irregular soft tissue mass involving the supraglottic and glottic airway ce ntered in the left piriform sinus involving the vocal cords. This results in se ángel left to right narrowing of the glottis. Findings most compatible with neop lasm. Recommend direct visualization and biopsy. 2. Involvement of the left aryepiglottic fold extending into the left piriform sinus. Erosive changes involving the left greater than right thyroid cartilage , cricoid cartilage and arytenoids. 3. Involvement of the anterior commissure with midline crossing. 4. Suspected sclerotic metastasis in the cervical spine more prominent at C3-C 6. This can be further evaluated with PET CT or MRI. 5. No visualized cervical lymphadenopathy. 6. Retention cyst right maxillary sinus. 7. Normal posterior nasopharynx and parapharyngeal fat. Notified BUBBA Mosqueda at 11/23/2021 2:40 PM.
[2021-11-23] MEDS: ipratropium-albuterol 3 mL Neb INHALATION (11:45)
[2021-11-23 11:59] LABS: Troponin 5 2HR 25.66 ng/L (0-15); Troponin 5 2HR Delta 4.66 ABS# (0-10)
[2021-11-23] MEDS: sodium chloride 0.9% 1,000 ML 999 ML IV (12:24)
[2021-11-23] MEDS: iohexol 300 mg/mL 100 mL Btl IV (13:30)
--- NOTE | 2021-11-23 15:25 | ECG_ITS ---
[facility] Test Date: 2021-11-23 Pat Name: Adarsh Pennington Department: Room: Gender: Male Supervisor Felting: : 1950 Requested By: Jessica Flores Order Number: [id number] Flynn MD: Chula Velasquez M.D. Measurements Intervals [place] Rate: 98 P: 57 MT: 166 QRS: 58 QRSD: 90 T: 35 QT: 329 QTc: 420 Interpretive Statements SINUS RHYTHM Compared to ECG 11/23/2021 09:42:34 Sinus tachycardia no longer present Electronically Signed On 11-23-2021 17:12:05 AFTER SCHOOL PROGRAM ASSISTANT by Chula Velasquez M.D. [id number]
[2021-11-23 18:11] LABS: Troponin 5 6HR 37.75 ng/L (0-15)
[2021-11-23 18:13] LABS: Troponin 5 6HR Delta 16.75 ng/L (0-12)
[2021-11-23] MEDS: aspirin 325 mg Tablet PO (18:29)
[2021-11-23] MEDS: racepinephrine 0.5 mL Neb INHALATION (23:51)
[2021-11-24] VITALS (51 sets, daily range): BP systolic 100–166; BP diastolic 63–107; PULSE 69–101; RESP 12–30; TEMP 36.5; O2SAT 35–100
--- NOTE | 2021-11-24 00:30 | PM.HP ---
Providers/Chief Complaint Primary Care Provider: Jovani Mcnally Chief Complaint: SOB, BRONCHITIS, FATIGUE History of Present Illness Adarsh Pennington is a 71 year old male with no significant past medical history came in with chief complaint of shortness of breath going on for the last 2 months, patient was in the ER 2 weeks ago with similar complaints and was diagnosed with Bronchitis and was placed on oral antibiotics. His shortness of breath has never improved in spite of being on adequate antibiotic. Today when he came in the ER CT neck w con was done as he was having stridor's: CT neck w con: 1.? Irregular soft tissue mass involving the supraglottic and glottic airway centered in the left piriform sinus involving the vocal cords. This results in severe left to right narrowing of the glottis. Findings most compatible with neoplasm. Recommend direct visualization and biopsy. 2.? Involvement of the left aryepiglottic fold extending into the left piriform sinus. Erosive changes involving the left greater than right thyroid cartilage, cricoid cartilage and arytenoids. 3. ? Involvement of the anterior commissure with midline crossing. 4.? 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 This can be further evaluated with PET CT or MRI. 5.? No visualized cervical lymphadenopathy. 6.? Retention cyst right maxillary sinus. 7.? Normal posterior nasopharynx and parapharyngeal fat. X-ray chest:: 1.? Chronic patchy infiltrates in right lower lobe with pleural plaques unchanged since September 07, 2021. No new infiltrates. 2.? No other significant changes from previous. Patient received: Solu-Medrol 125 mg IV one-time dose in the ER, epinephrine inhalation, nebs. ENT was consulted: For possible tracheostomy in the morning. Review of Systems General: Reports: 10 or more systems reviewed and unremarkable except in HPI and below Const: Denies: fever(s), chills, body aches, change in appetite or diaphoresis Card: Denies: palpitations, edema or swelling of feet/ankles GI: Denies: abdominal pain, nausea, vomiting, diarrhea or constipation : Denies: flank pain or difficulty urinating Musc: Denies: back pain, extremity pain or extremity swelling Neuro: Denies: headache(s), difficulty walking or confusion Medications/Allergies Home Medications Medication Instructions Recorded Confirmed Last Taken Type albuterol sulfate 90 mcg/actuation 2 puff INHALATION Q6H PRN 11/23/21 11/23/21 Unknown History aerosol inhaler clindamycin HCl 300 mg capsule 300 mg PO BID 11/23/21 11/23/21 Unknown History clopidogrel 75 mg tablet 75 mg PO DAILY 11/23/21 11/23/21 Unknown History Allergies Allergy/AdvReac Type Severity Reaction Status Date / Time No Known Allergies Allergy Verified 09/07/21 20:09 Vitals/I&O/Wt Last Vital Signs Temp 98.6 F 11/23/21 08:41 Pulse 89 11/23/21 23:51 Resp 18 11/23/21 23:51 BP 115/73 11/23/21 23:25 Pulse Ox 98 11/23/21 23:51 Physical Exam Const: COMMON NORMALS: patient oriented x3 HENMT: COMMON NORMALS: normocephalic, atraumatic, hearing grossly normal bilaterally and external ears normal HEAD & SCALP: normocephalic and atraumatic EXTERNAL EAR: Yes external ears normal Eye: COMMON NORMALS: no scleral icterus GENERAL EYE: appearance normal, both eyes and all related structures Chest: COMMONS NORMALS: normal inspection of the chest and normal palpation of entire chest wall CHEST: Yes Symmetrical chest wall rise Resp: COMMON NORMALS: normal respiratory effort, No retractions, No use of accessory muscles and clear to auscultation bilaterally EFFORT & INSPECTION: Yes symmetric chest movement AUSCULTATION: clear to auscultation bilaterally OTHER: Inspiratory stridor is present Cardio: COMMON NORMALS: regular rate, regular rhythm, S1 normal heart sound present, S2 normal heart sound present, No gallops present (Cardio), No murmurs present (Cardio), No rub (Cardio) and Peripheral pulses 2+ throughout RATE: regular rate RHYTHM: regular rhythm HEART SOUNDS: S1 normal heart sound present and S2 normal heart sound present PERIPHERAL PULSES: Peripheral pulses 2+ throughout GI: COMMON NORMALS: Normal to inspection, nondistended, normoactive bowel sounds present, Soft to palpation, non-tender, No hepatosplenomegaly present and no masses AUSCULTATION: Yes normoactive bowel sounds PALPATION: Yes Soft to palpation and Yes No hepatosplenomegaly present RECTAL EXAM: Yes deferred Extremity: COMMON NORMALS: no clubbing, cyanosis or edema and no pedal edema Neuro: COMMON NORMALS: patient oriented x3 Data : 11/23/21 10:21 02 10:21 A&P Assessment and plan (1) Stridor: Status: Acute (2) Dyspnea: Status: Acute Plan # shortness of breath secondary to ?Irregular soft tissue mass involving the supraglottic and glottic airway. Plan : Continue Solu-Medrol 60 mg IV daily DuoNebs N.p.o. after midnight ENT consult: For AM tracheostomy #CODE STATUS: Full code #DVT prophylaxis: On Lovenox Attestations Medical Necessity Statement*: Patient needs to be in hospital for management of shortness of breath, and the need for tracheostomy. Anticipated length of stay greater than 2 midnights. Coding Level of Care Code Acute Director Of Respiratory Therapy for [facility] Diagnoses Stridor R06.1 Dyspnea R06.00
--- NOTE | 2021-11-24 00:33 | PC.NURSE ---
patient resting comfortably in bed at this time. patient in no obvious distress. Patinet on NC @ 2 lpm. patient spo2 noted to be 96-98%. patient with noted difficulty talking and hoarse voice. Vitals obtained and charted. Patient updated of status and wait. patient on quality assurance monitor body. Stridor noted upon assessment.
[2021-11-24] MEDS: sodium chloride 0.9% 1,000 ML 75 ML IV (01:39)
--- NOTE | 2021-11-24 04:20 | PC.NURSE ---
patient assisted to bedside to urinate using urinal. patient in no obivous distress. patient placed on cardiac cath lab manager.
--- NOTE | 2021-11-24 05:10 | P.CONIM_ITS ---
Providers/Reason For Consult Consulting Physician/Specialty*: Dr. Ezio Cerda MD Otolaryngology, Head & Neck Surgery Reason for Consult*: Airway Obstruction Requesting Physician: ER Attending Physician: Meet Espinoza MD Primary Care Provider: Jovani Mcnally History of Present Illness History of Present Illness Adarsh Pennington is a 71 year old male who reports a 2-3 month h/o increasing hoarseness and shortness of breath. The patient presented to the ER for evaluation where he underwent a neck CT on which he was found to have a large, obstructing laryngeal mass. I was consulted to evaluate the patient's airway. The patient is o/w without c/o. Review of Systems General: Reports: 10 or more systems reviewed and unremarkable except in HPI and below Medications/Allergies Home Medications Medication Instructions Recorded Confirmed Last Taken Type albuterol sulfate 90 mcg/actuation 2 puff INHALATION Q6H PRN 11/23/21 11/23/21 Unknown History aerosol inhaler clindamycin HCl 300 mg capsule 300 mg PO BID 11/23/21 11/23/21 Unknown History clopidogrel 75 mg tablet 75 mg PO DAILY 11/23/21 11/23/21 Unknown History Allergies Allergy/AdvReac Type Severity Reaction Status Date / Time No Known Allergies Allergy Verified 09/07/21 20:09 Current Medications Generic Name Dose Route Start Last Admin Trade Name Freq PRN Reason Stop Dose Admin Sodium Chloride 1,000 mls @ 75 mls/hr 11/24/21 00:30 11/24/21 01:39 Sodium Chloride 0.9% IV 75 mls/hr .[id number] YANA Administration Vitals/I&O/Wt Last Vital Signs Temp 97.7 F 11/24/21 00:32 Pulse 84 11/24/21 04:49 Resp 18 11/24/21 04:49 BP 114/75 11/24/21 04:49 Pulse Ox 98 11/24/21 04:49 Physical Exam Const: COMMON NORMALS: no acute distress and patient oriented x3 NUTRITIONAL APPEARANCE: cachectic ORIENTATION/CONSCIOUSNESS: Yes Other orientation findings (The patient is hoarse and has inspiratory stridor.) HENMT: COMMON NORMALS: normocephalic, atraumatic, hearing grossly normal bilaterally and Normal external nose present HEAD & SCALP: normocephalic and atraumatic FACE & SINUS: normal facial exam NOSE: Normal external nose present MOUTH: Normal oral and palatal mucosa present Neck/C-Spine: COMMON NORMALS: full ROM, no lymphadenopathy and Thyroid normal THYROID: Thyroid normal Lymph: LYMPHATIC: no lymphadenopathy noted Chest: COMMONS NORMALS: normal inspection of the chest and normal palpation of entire chest wall Resp: COMMON NORMALS: normal respiratory effort, No retractions and clear to auscultation bilaterally AUSCULTATION: clear to auscultation bilaterally Cardio: COMMON NORMALS: regular rate, regular rhythm, No gallops present (Cardio), No murmurs present (Cardio) and No rub (Cardio) RATE: regular rate RHYTHM: regular rhythm GI: COMMON NORMALS: Normal to inspection, nondistended, normoactive bowel sounds present Extremity: COMMON NORMALS: normal to inspection Neuro: COMMON NORMALS: patient oriented x3 and CN's II-XII intact bilaterally Data : 11/23/21 10:21 11/23/21 10:21 Attestation for Other Data: I personally reviewed and interpreted the following: Other data: Neck CT scan Chest X Ray A&P Assessment and plan (1) Supraglottic mass: Assessment: Supraglottic Mass with airway obstruction secondary to an ob structing, erosive transglottic mass Plan: - Tracheotomy: I explained the procedure as well as the potential risks/complications to the patient. He expressed understanding and wishes to proceed. - Will arrange for definitive care once the patient is stable from an airway perspective Status: Acute (2) Dyspnea: See the above Status: Acute (3) Stridor: See the above Status: Acute Consult Attestations Medical Necessity Statement: I was consulted to manage the patient's airway Coding Level of Care Code Acute White Spooler for [facility] Diagnoses Supraglottic mass J38.7 Dyspnea R06.00 Stridor R06.1
--- NOTE | 2021-11-24 05:44 | PC.NURSE ---
contact number [phone] ( home number and preference of numbers)
--- NOTE | 2021-11-24 06:06 | ANES.PREANE2 ---
Pre-Anesthetic Assessment Height/Weight: Height 1.83 m Temp Pulse Resp BP Pulse Ox 97.7 F 84 18 114/75 98 11/24/21 00:32 11/24/21 04:49 11/24/21 04:49 11/24/21 04:49 11/24/21 04:49 Preop Diagnosis: Pharyngeal tumor Operation Date: 11/24/21 06:00 Proposed Procedures p Tracheostomy(Not Applicable) - Ezio Cerda MD s Direct Laryngoscopy(Not Applicable) - Ezio Cerda MD Familial anesthetic complications: None Was Beta Danelle taken within 24 hours: N/A Was Clonidine taken within 24 hours: N/A Last intake: 11/23/21 Social No alcohol and No tobacco Exam alert, oriented x 3 and regular rate & rhythm stridor Airway Cervical ROM: within normal limits Mallampati: Class I Dentition: false Pulmonary Cough and Shortness of Breath Able to lay flat and breathe but has to clear sputum frequently. Does not feel SOB of breath or difficulty breathing when laying flat except for having to clear throat frequently so sleeps with approximately 15 degree incline CV/HEM Denies METS < 4 due to hx of stroke with LE weakness None reported Hepatic None reported GI None reported Metabolic None reported Neuropsych Cerebrovascular Accident On clopidogrel for hx of multiple strokes Anesthetic Plan ASA status: 3E Anesthesia: Anesthesia Evaluation and General Other: We discussed risk and benefits of general anesthesia including PONV, sore throat (sometimes severe), corneal abrasion, positioning and peripheral nerve injuries, life threatening allergic reaction, post operative ICU admission requiring prolonged intubation, stroke, heart attack, , and rare incidences of recall. Patient consents to proceed with general anesthesia with possible awake fiberoptic intubation pending further discussion with surgeon prior to surgery. Risk of > 500 ml blood loss (7ml/kg in children): No Medications/Allergies Home Medications Medication Instructions Recorded Confirmed Last Taken Type albuterol sulfate 90 mcg/actuation 2 puff INHALATION Q6H PRN 11/23/21 11/23/21 Unknown History aerosol inhaler clindamycin HCl 300 mg capsule 300 mg PO BID 11/23/21 11/23/21 Unknown History clopidogrel 75 mg tablet 75 mg PO DAILY 11/23/21 11/23/21 Unknown History Allergies Allergy/AdvReac Type Severity Reaction Status Date / Time No Known Allergies Allergy Verified 09/07/21 20:09 Current Medications Generic Name Dose Route Start Last Admin Trade Name Freq PRN Reason Stop Dose Admin Sodium Chloride 1,000 mls @ 75 mls/hr 11/24/21 00:30 11/24/21 01:39 Sodium Chloride 0.9% IV 75 mls/hr .[id number] YANA Administration Data Anesthesia : 11/23/21 10:21 11/23/21 10:21 Short CBC 11/23/21 Range/Units 10:21 WBC 8.0 (4.0-10.0) 10^3/uL Hgb 14.8 (11.7-16.6) g/dL Hct 42.6 (42.0-52.0) % MCV 86.9 (80-94) fl Plt Count 307 (130-400) 10^3/cmm Neut % (Auto) 69.5 % Neut # (Auto) 5.57 (1.8-7.7) 10^3/uL BMP 11/23/21 10:21 Sodium 132 L Potassium 4.3 Chloride 97 L Carbon Dioxide 20 L BUN 13 Creatinine 0.4 L Glucose 92 Calcium 9.6 Cardiac Enzymes 11/23/21 11/23/21 11/23/21 Range/Units 10:21 10:21 11:28 Troponin T Baseline 21 H (0-15) ng/L Troponin T 120 Minute 25.66 H (0-15) ng/L Delta Troponin T 4.66 (0-10) ABS# Troponin T Hi Sens 6Hr (0-15) ng/L Troponin T Hi Sens 6Hr Delta (0-12) ng/L NT-Pro-B Natriuret Pep 82 (0-125) pg/mL 11/23/21 Range/Units 17:00 Troponin T Baseline (0-15) ng/L Troponin T 120 Minute (0-15) ng/L Delta Troponin T (0-10) ABS# Troponin T Hi Sens 6Hr 37.75 H (0-15) ng/L Troponin T Hi Sens 6Hr Delta 16.75 H* (0-12) ng/L NT-Pro-B Natriuret Pep (0-125) pg/mL Liver Function 11/23/21 Range/Units 10:21 Total Bilirubin 0.4 (0.15-1.2) mg/dL AST 20 (0-40) U/L ALT 10 (0-41) U/L Alkaline Phosphatase 86 (40-130) IU/L Albumin 4.0 (3.5-5.2) g/dL COVID Results 11/23/21 10:00 SARS-CoV-2 Ag (Rapid) Negative Coags 11/23/21 11/23/21 10:21 11:01 D-Dimer Cancelled 0.54 ABG 11/23/21 10:32 Specimen Type Arterial Sample Site Brachial, right ABG pH 7.40 ABG pCO2 51.8 H ABG pO2 154.0 H ABG HCO3 31.8 H ABG O2 Saturation 99.8 ABG Base Excess 5.4 H A-a O2 Gradient 1.1 L O2 Delivery Device Nc O2 Liters/Min 3.0 FiO2 32.0 Cardiac Studies: No Data to Display
--- NOTE | 2021-11-24 06:30 | PC.NURSE ---
OR personnel at bedside to take patient to OR. patient in no obivous distress. Patient transported via stretcher on 2 LPM
[2021-11-24] MEDS: EPINEPHrine 1 mg/mL INJ XX (07:13)
[2021-11-24] MEDS: fluorescein 1 mg Strip XX (07:14)
--- NOTE | 2021-11-24 07:41 | PM.OP ---
Operative Report Date of procedure: November 24, 2021 Pre-op diagnosis: Preop Diagnosis: Laryngeal mass with airway obstruction Post-op diagnosis: same Post-op diagnosis: Left transglottic mass with airway obstruction Post-op findings: Exophytic left transglottic mass with significant airway obstruction Procedure done: Tracheotomy Microdirect laryngoscopy with biopsy Implants: None Pathology: Left transglottic mass Surgeon: Ezio Cerda Information Scientist: Elvi Santo Anesthesia: General Estimated blood loss (mL): 20 IV fluids (mL): 900 Complications: None Condition: stable Disposition: ICU Brief History: 71 yo wm with a 2 month h/o worsening hoarseness and airway obstruction who presents for airway management and biopsy. Procedure: The patient was identified in the preoperative holding area and was taken to the operating where he was placed on the operating table in the supine position. A vertical incision was drawn out over the trachea just above the sternal notch and the wound was injected with local anesthesia. The patient was then prepped and draped in the usual sterile fashion. The skin wound was made with the 15 blade and the dissection proceeded down through the subcutaneous tissues with electrocautery. The midline tissues were divided with electrocautery and were retracted laterally with the Army-Vader retractors. A trach hook was then placed under the cricoid cartilage and the airway was lifted into the wound. 2 cc of 2% lidocaine plain were injected into the trachea and a window of cartilage was removed from the third tracheal ring using a #11 blade. The tracheal dilator was used to dilate the newly created tracheotomy and a #8 cuffed endotracheal tube was placed in the trachea. The trach tube was then secured in place with a neck strap and 0 Prolene sutures. Surgicel was packed in the wound. At this point the table was turned 90 degrees the patient's left and the surgical laryngoscope was advanced down the right oral cavity gutter under direct vision. There was a large exophytic obstructing transglottic lesion based on the left side of the larynx that was noted. Biopsies were taken of this lesion and hemostasis was achieved by direct application of 1-1000 epinephrine on neuro pledgets. Once this was accomplished the larynx was reinspected. The tongue base vallecula epiglottis upper epiglottis and piriform sinuses and postcricoid area were normal. The mass appeared to extend from the lower one third of the epiglottis on the left down to include the left false and true vocal cords and extended into the upper trachea on the left. I was unable to identify the lower extent of the tumor because of the obstructing nature of the tumor. The left true vocal cord was immobile. At this point all instrumentation was removed from the patient and the procedure was terminated. Control of the patient was returned to anesthesia where he underwent an uneventful reversal of anesthesia and extubation was taken to the recovery room in stable condition. There were no operative or anesthetic complications
--- NOTE | 2021-11-24 08:04 | XR_ITS ---
WS: [id number] XR chest 1V portable [id number] REASON FOR EXAM: tracheostomy FINDINGS: Compared to the examination of the prior day there is a tracheostomy in place. There is mediastinal a ir and subcutaneous emphysema in the right neck. No other significant interval change compared to the the previous day. XR/XR chest 1V portable [id number] IMPRESSION: Interval tracheostomy placement as above.
--- NOTE | 2021-11-24 09:00 | PC.NURSE ---
Patient was brought to unit at around 0735 on ventilator with trach. Minimal blood was noted around site.
--- NOTE | 2021-11-24 09:13 | PC.CHAP ---
Pastoral Care Encounter/Spiritual Assessment Type of Contact [] Declined tooling inspector visit [] Patient/Family/Request visit [] Outpatient visit [] Follow-up visit [] Physician referral [] Code/Alert [x] Routine visit [] Staff referral [] Actively dying [] Patient sleeping [] Family support [] [] Out of room [] Palliative care [] [] Receiving care in room [] Pre-surgical visit [] Trauma [] Long length of stay [x] ICU visit [x] Other: just arrived in ICU... trach in place Relational/Emotional Strength [] Patient feels connected with others/family/visitors/staff [] Distress [] Loneliness/isolation [] Abandonment Spirituality of Patient [] Person of Shavon [] Attends Orthodoxy of their Shavon [] Believes in Prayer [] Reads Bible or Quaker materials [] There are Spiritual issues to be addressed Creative Services Specialist Interventions [x] Prayer [] Active listening [] Non-anxious presence [] Spiritual/emotional support [] Crisis/trauma care [] Spiritual counseling [] Bereavement support [] Provided bereavement packet [] Provided Bible/devotional materials [] Provided toy/stuffed animal, coloring book to patient or family member [] Provided Communion [] Anointing/[place] [] Salvation [x] Completed spiritual assessment [] Other: Impact on Illness or Injury [] Angry [] Fearful [] Anxious [] Often cries [] Exhaustion [] Unable to work [] Unable to attend faith [] Unable to walk/stand [] Unable to read [] Unable to drive [] Unable to eat/drink [] Unable to sleep [] Unable to be with family [] Patient intubated [] Other: Summary Time spent with patient
[2021-11-24] MEDS: morphine 4 mg/mL SDV 1 mL 2 MG IVP (09:17)
[2021-11-24] MEDS: ipratropium-albuterol 3 mL Neb INHALATION ×2 (11:19→20:44)
--- NOTE | 2021-11-24 12:18 | P.PN_ITS ---
Subjective Subjective: Interval history: Left shoulder is sore from old injury. Otherwise is doing well. Vitals/I&O/Wt Last Vital Signs Temp 97.7 F 11/24/21 00:32 Pulse 88 11/24/21 11:22 Resp 16 11/24/21 11:19 BP 145/81 11/24/21 10:30 Pulse Ox 98 11/24/21 11:19 Physical Exam Const: COMMON NORMALS: no acute distress and patient oriented x3 HENMT: COMMON NORMALS: oropharynx normal Neck/C-Spine: COMMON NORMALS: no JVD OTHER: Tracheostomy Resp: COMMON NORMALS: normal respiratory effort and clear to auscultation bilaterally AUSCULTATION: clear to auscultation bilaterally Cardio: COMMON NORMALS: no JVD, regular rhythm, S1 normal heart sound present, S2 normal heart sound present and No murmurs present (Cardio) RHYTHM: regular rhythm HEART SOUNDS: S1 normal heart sound present and S2 normal heart sound present GI: COMMON NORMALS: Normal to inspection, nondistended, normoactive bowel sounds present, Soft to palpation and non-tender PALPATION: Yes Soft to palpation Extremity: COMMON NORMALS: no joint enlargement and no pedal edema Neuro: COMMON NORMALS: patient oriented x3 and moves all extremities Skin: COMMON NORMALS: no rashes or lesions noted GENERAL SKIN EXAM: no rashes or lesions noted Data : 11/23/21 10:21 11/23/21 10:21 A&P Assessment and plan (1) Stridor: Status post tracheostomy this morning 11/24. Doing well after surgery. Came off vent support. Continue humidified oxygen. Suctioning. Trach care. DC planning. Status: Acute (2) Supraglottic mass: Biopsies taken on 11/24. Status: Acute (3) Dyspnea: Status post tracheostomy due to upper airway obstruction. DC steroid. Status: Acute Attestations Medical Necessity Statement*: Continue admission for post tracheostomy care. Coding Level of Care Code Acute Solutions Consultant for [facility] Exam Comprehensive Diagnoses Stridor R06.1 Dyspnea R06.00 Supraglottic mass J38.7
--- NOTE | 2021-11-24 18:31 | PC.NURSE ---
[place] tinged sputum was suctioned from trach.
[2021-11-25] VITALS (52 sets, daily range): BP systolic 86–168; BP diastolic 54–99; PULSE 65–116; RESP 13–23; TEMP 36.7–36.9; O2SAT 72–100
[2021-11-25] MEDS: enoxaparin 40 mg/0.4 mL Syringe SUBCUT (00:24)
[2021-11-25 05:19] LABS: Basophils % 0.1 %; Hematocrit 45.8 % (42.0-52.0); Hemoglobin 15.8 g/dL (11.7-16.6); Lymphocytes # 2.3 10^3/uL (0.8-4.8); Lymphocytes % 17.5 %; Mean Corpuscular HGB Conc 34.5 g/dL (30.0-36.0); Mean Corpuscular Hemoglobin 29.4 pg (28.0-34.0); Mean Corpuscular Volume 85.1 fl (80-94); Mean Platelet Volume 9.4 fL (7.4-10.4); Monocytes % 7.9 %; Neutrophils # 9.56 10^3/uL (1.8-7.7); Neutrophils % 74.2 %; Nucleated Red Blood Cells % 0 %; Platelet Count 312 10^3/cmm (130-400); Red Blood Count 5.38 10^6/uL (4.1-5.3); Red Cell Distribution Width 12.4 % (12.1-15.1); White Blood Count 12.9 10^3/uL (4.0-10.0)
[2021-11-25 05:26] LABS: INR 0.97 (0.8-1.2)
[2021-11-25 05:40] LABS: Blood Urea Nitrogen 14 mg/dL (8-23); Calcium 9.5 mg/dL (8.5-10.5); Carbon Dioxide 26 mmol/L (22-29); Chloride 97 mmol/L (98-107); Glucose 95 mg/dL (65-115)
[2021-11-25 05:49] LABS: Osmolality Calculated 280 mOsm/kg (285-295); Sodium 135 mmol/L (136-145)
--- NOTE | 2021-11-25 06:31 | PM.PN ---
Subjective Subjective: Interval history: 71 yo wm with a h/o an obstructing transglottic left sided laryngeal tumor who is POD #1 s/p tracheotomy. The patient reports that he is doing well and has been able to eat. The patient has no other c/o. Medications: Reviewed: Yes Vitals/I&O/Wt Last Vital Signs Temp 97.7 F 11/24/21 00:32 Pulse 89 11/25/21 04:00 Resp 22 H 11/25/21 03:30 BP 135/77 11/25/21 04:00 Pulse Ox 98 11/25/21 04:00 11/24/21 11/24/21 11/25/21 14:59 22:59 06:59 Intake Total Output Total 400 / 400 Balance -400 / -370 Physical Exam Const: COMMON NORMALS: no acute distress and patient oriented x3 HENMT: COMMON NORMALS: normocephalic, atraumatic and Normal external nose present HEAD & SCALP: normocephalic and atraumatic FACE & SINUS: normal facial exam and face symmetric NOSE: Normal external nose present Eye: COMMON NORMALS: Equal, round and reactive pupils present, EOMs intact bilaterally, conjunctivae normal and no scleral icterus CONJUNCTIVA: Yes conjunctivae normal PUPIL: Yes Equal, round and reactive pupils present Neck/C-Spine: COMMON NORMALS: full ROM and no lymphadenopathy GENERAL: Yes trachea midline and Yes other (Trach site clean without erythema; subtle widening of laryngeal cartilage.) Lymph: LYMPHATIC: no lymphadenopathy noted Chest: COMMONS NORMALS: normal inspection of the chest Neuro: COMMON NORMALS: patient oriented x3 Data : 11/25/21 04:51 11/25/21 04:51 Attestation for Other Data: I personally reviewed and interpreted the following: Other data: Post Op Chest X Ray A&P Assessment and plan (1) Supraglottic mass: Impression: Obstructing laryngeal mass - 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 The patient is doing well s/p tracheotomy. Plan: - Continue trach care - D/C planning: the patient will need home suction, home humidification (for trach), and daily home health visits for 2 weeks - We will continue w/u and treatment of his laryngeal tumor as an outpatient once his final path report is available. - Care o/w as per the hospitalist team Status: Acute Attestations Medical Necessity Statement*: I was consulted to help manage the airway and the patient's laryngeal tumor. Coding Level of Care Code Acute Publication Manager for [facility] Diagnoses Supraglottic mass J38.7
[2021-11-25] MEDS: lidocaine 2% INJ 20 mL INJECTION (06:48)
[2021-11-25] MEDS: ipratropium-albuterol 3 mL Neb INHALATION ×2 (07:49→14:22)
--- NOTE | 2021-11-25 07:59 | FL_ITS ---
WS: [id number] FL barium swallow modifd [id number] REASON FOR EXAM: Oropharyngeal dysphagia FLUOROSCOPY TIME: 1.2 minutes FINDINGS: The swallowing of various consistencies of barium was monitored fluoroscopically with video recording . There was significant penetration into the upper airway and possibly a small amount of aspiration. Detailed report of the evaluation of the swallowing will be rendered by the speech therapy department . FL/FL barium swallow modifd [id number] IMPRESSION: Barium swallow as above.
--- NOTE | 2021-11-25 09:47 | PC.CHAP ---
Pastoral Care Encounter/Spiritual Assessment Type of Contact [] Declined managed security sales consultant visit [] Patient/Family/Request visit [] Outpatient visit [] Follow-up visit [] Physician referral [] Code/Alert [x] Routine visit [] Staff referral [] Actively dying [] Patient sleeping [] Family support [] [] Out of room [] Palliative care [] [] Receiving care in room [] Pre-surgical visit [] Trauma [] Long length of stay [x] ICU visit [x] Other: setting up in chair... can speak but writes notes Relational/Emotional Strength [] Patient feels connected with others/family/visitors/staff [] Distress [] Loneliness/isolation [] Abandonment Spirituality of Patient [] Person of Shavon [] Attends Faith of their Shavon [] Believes in Prayer [] Reads Bible or Judaism materials [] There are Spiritual issues to be addressed [employer] Interventions [x] Prayer [] Active listening [] Non-anxious presence [] Spiritual/emotional support [] Crisis/trauma care [] Spiritual counseling [] Bereavement support [] Provided bereavement packet [] Provided Bible/devotional materials [] Provided toy/stuffed animal, coloring book to patient or family member [] Provided Communion [] Anointing/Omega [] Salvation [x] Completed spiritual assessment [] Other: Impact on Illness or Injury [] Angry [] Fearful [] Anxious [] Often cries [] Exhaustion [] Unable to work [] Unable to attend voodoo [] Unable to walk/stand [] Unable to read [] Unable to drive [] Unable to eat/drink [] Unable to sleep [] Unable to be with family [] Patient intubated [] Other: Summary Time spent with patient
[2021-11-25] MEDS: morphine 4 mg/mL SDV 1 mL 2 MG IVP (14:35)
--- NOTE | 2021-11-25 18:25 | PM.PN ---
Subjective Subjective: Interval history: Sitting up in chair. Denies pain or discomfort. Having some secretions. Vitals/I&O/Wt Last Vital Signs Temp 98.5 F 11/25/21 13:00 Pulse 95 11/25/21 16:31 Resp 18 11/25/21 14:35 BP 165/99 11/25/21 17:00 Pulse Ox 96 11/25/21 17:00 11/25/21 11/25/21 11/25/21 06:59 14:59 22:59 Output Total 400 / 1230 300 / 300 400 / 700 Balance -400 / -1200 -300 / -300 -400 / -700 Physical Exam Const: COMMON NORMALS: no acute distress and patient oriented x3 HENMT: COMMON NORMALS: oropharynx normal Neck/C-Spine: COMMON NORMALS: no JVD OTHER: Tracheostomy Resp: COMMON NORMALS: normal respiratory effort and clear to auscultation bilaterally AUSCULTATION: clear to auscultation bilaterally Cardio: COMMON NORMALS: no JVD, regular rhythm, S1 normal heart sound present, S2 normal heart sound present and No murmurs present (Cardio) RHYTHM: regular rhythm HEART SOUNDS: S1 normal heart sound present and S2 normal heart sound present GI: COMMON NORMALS: Normal to inspection, nondistended, normoactive bowel sounds present, Soft to palpation and non-tender PALPATION: Yes Soft to palpation Extremity: COMMON NORMALS: no joint enlargement and no pedal edema Neuro: COMMON NORMALS: patient oriented x3 and moves all extremities Skin: COMMON NORMALS: no rashes or lesions noted GENERAL SKIN EXAM: no rashes or lesions noted Data : 11/25/21 04:51 11/25/21 04:51 Micro: Microbiology 11/24/21 10:07 Gram Stain - Final Sputum - Endotracheal Tube Aspirate Sputum Culture - Preliminary Gram Negative Rods A&P Assessment and plan (1) Oropharyngeal dysphagia: Noted oropharyngeal dysphagia, significant penetration into upper airway and possibly small amount of aspiration on MBS. Continues n.p.o. Continue ST reassessments. Discussed with his , discussed we will be following up on improvement in his swallowing, but given presence of the mass, it is a possibility he may end up requiring a feeding tube. Status: Acute (2) Stridor: Continue post tracheostomy care. Suctioning. Status post tracheostomy this morning 11/24. Doing well after surgery. Came off vent support. Continue humidified oxygen. Suctioning. Trach care. DC planning. is very concerned how she will manage trach care at home. Encouraged her to come and see and learn about it in a couple of days once the snowstorm subsides. Status: Acute (3) Supraglottic mass: Biopsies taken on 11/24. Status: Acute (4) Dyspnea: Status post tracheostomy due to upper airway obstruction. Status: Acute Attestations Medical Necessity Statement*: Continue admission for post tracheostomy care, reassessment of oropharyngeal dysphagia with aspiration risk Coding Level of Care Code Acute Deputy Clerk Of [address] for [facility] Fwd Diagnoses Stridor R06.1 Supraglottic mass J38.7 Dyspnea R06.00 Oropharyngeal dysphagia R13.12
--- NOTE | 2021-11-25 18:39 | PC.NURSE ---
Patient has been able to transfer self from chair to bed this shift. No events. Education provided on trach care.
[2021-11-26] VITALS (53 sets, daily range): BP systolic 90–131; BP diastolic 50–92; PULSE 79–174; RESP 14–30; TEMP 36.8–37.9; O2SAT 89–98
[2021-11-26] MEDS: enoxaparin 40 mg/0.4 mL Syringe SUBCUT (01:08)
[2021-11-26 05:11] LABS: Basophils % 0.2 %; Eosinophils % 0.2 %; Hematocrit 44.6 % (42.0-52.0); Hemoglobin 15.2 g/dL (11.7-16.6); Lymphocytes # 2.1 10^3/uL (0.8-4.8); Mean Corpuscular HGB Conc 34.1 g/dL (30.0-36.0); Mean Corpuscular Hemoglobin 29.4 pg (28.0-34.0); Mean Corpuscular Volume 86.3 fl (80-94); Mean Platelet Volume 10.1 fL (7.4-10.4); Monocytes % 8.8 %; Neutrophils % 72.6 %; Nucleated Red Blood Cells % 0 %; Platelet Count 304 10^3/cmm (130-400); Red Blood Count 5.17 10^6/uL (4.1-5.3); Red Cell Distribution Width 12.5 % (12.1-15.1); White Blood Count 11.4 10^3/uL (4.0-10.0)
--- NOTE | 2021-11-26 05:28 | PM.PN ---
Subjective Subjective: Interval history: 72 yo wm with a h/o an obstructing left sided transglottic tumor who is POD #2 s/p tracheotomy and DL with biopsy. The patient is without c/o this morning. Medications: Reviewed: Yes Vitals/I&O/Wt Last Vital Signs Temp 98.3 F 11/26/21 04:00 Pulse 85 11/26/21 04:30 Resp 30 H 11/26/21 04:30 BP 118/70 11/26/21 04:00 Pulse Ox 94 11/26/21 04:30 11/25/21 11/25/21 11/26/21 14:59 22:59 06:59 Output Total 300 / 300 650 / 950 Balance -300 / -300 -650 / -950 Physical Exam Const: COMMON NORMALS: no acute distress, average body habitus, patient oriented x3 and alert GENERAL APPEARANCE: cooperative HENMT: COMMON NORMALS: normocephalic, atraumatic and Normal external nose present HEAD & SCALP: normocephalic and atraumatic FACE & SINUS: normal facial exam and face symmetric NOSE: Normal external nose present Eye: COMMON NORMALS: Equal, round and reactive pupils present, EOMs intact bilaterally and conjunctivae normal CONJUNCTIVA: Yes conjunctivae normal PUPIL: Yes Equal, round and reactive pupils present Neck/C-Spine: COMMON NORMALS: full ROM, no lymphadenopathy, supple and Thyroid normal GENERAL: Yes tracheostomy present (No erythema or induration.) THYROID: Thyroid normal Lymph: LYMPHATIC: no lymphadenopathy noted Chest: COMMONS NORMALS: normal inspection of the chest Neuro: COMMON NORMALS: patient oriented x3 SENSORIUM/ORIENTATION: Yes alert Data : 11/26/21 04:04 11/25/21 04:51 Micro: Microbiology 11/24/21 10:07 Gram Stain - Final Sputum - Endotracheal Tube Aspirate Sputum Culture - Preliminary Gram Negative Rods Attestation for Other Data: I personally reviewed and interpreted the following: Other data: Neck CT Modified Barium Swallow A&P Assessment and plan (1) Supraglottic mass: Impression: Large obstructing left transglottic mass with erosion of the thyroid cartilage. 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 There is also a question of C spine mets on the soft tissue neck CT. Plan: - Continue current trach care. I will perform first trach change on POD #5-7. The patient will be ready for home d/c once the first trach change has been performed, his D/C planning is complete, and he and his have been trained by RT in trach care - We will have to evaluate the possible C Spine mets further with a C spine CT and PET Scan Status: Acute (2) Oropharyngeal dysphagia: Impression: Secondary to the above Plan: I recommend that consideration be given for PEG placement. The patient will need this for alimentation given his MBS findings. Status: Acute Attestations Medical Necessity Statement*: I was consulted to assist in care of the patient's laryngeal mass and airway obstruction. Coding Level of Care Code Acute Clinical Rehabilitation Liaison for [facility] [place] Diagnoses Supraglottic mass J38.7 Oropharyngeal dysphagia R13.12
[2021-11-26 05:52] LABS: Blood Urea Nitrogen 19 mg/dL (8-23); Calcium 8.4 mg/dL (8.5-10.5); Carbon Dioxide 26 mmol/L (22-29); Chloride 99 mmol/L (98-107); Glucose 92 mg/dL (65-115); Osmolality Calculated 284 mOsm/kg (285-295); Sodium 136 mmol/L (136-145)
[2021-11-26 05:56] LABS: Anion Gap 14.9 (5-19); Potassium 3.9 mmol/L (3.5-5.1)
[2021-11-26] MEDS: ipratropium-albuterol 3 mL Neb INHALATION ×2 (09:27→20:38)
--- NOTE | 2021-11-26 09:44 | PC.RESP ---
teaching on trach done.
[2021-11-26] MEDS: metoprolol tartrate 1 mg/1 mL SDV 5 mL 5 MG IVP ×2 (12:16→13:28)
--- NOTE | 2021-11-26 12:37 | PM.PN ---
Subjective Subjective: Interval history: Denies pain or discomfort. In the early afternoon A. fib with RVR. Denies chest pain or pressure. Not short of breath. He is getting used to the location of the tracheostomy, trying to work with suctioning. Vitals/I&O/Wt Last Vital Signs Temp 98.3 F 11/26/21 04:00 Pulse 109 H 11/26/21 09:49 Resp 20 H 11/26/21 09:45 BP 107/64 11/26/21 08:30 Pulse Ox 97 11/26/21 09:45 11/25/21 11/26/21 11/26/21 22:59 06:59 14:59 Output Total 650 / 950 125 / 1075 200 / 200 Balance -650 / -950 -125 / -1075 -200 / -200 Physical Exam Const: COMMON NORMALS: no acute distress and patient oriented x3 HENMT: COMMON NORMALS: oropharynx normal Neck/C-Spine: COMMON NORMALS: no JVD OTHER: Tracheostomy Resp: COMMON NORMALS: normal respiratory effort and clear to auscultation bilaterally AUSCULTATION: clear to auscultation bilaterally Cardio: COMMON NORMALS: no JVD, S1 normal heart sound present, S2 normal heart sound present and No murmurs present (Cardio) RATE: tachycardic RHYTHM: abnormal rhythm irregularly irregular HEART SOUNDS: S1 normal heart sound present and S2 normal heart sound present GI: COMMON NORMALS: Normal to inspection, nondistended, normoactive bowel sounds present, Soft to palpation and non-tender PALPATION: Yes Soft to palpation Extremity: COMMON NORMALS: no joint enlargement and no pedal edema Neuro: COMMON NORMALS: patient oriented x3 and moves all extremities Skin: COMMON NORMALS: no rashes or lesions noted GENERAL SKIN EXAM: no rashes or lesions noted Data : 11/26/21 04:04 11/26/21 04:04 Micro: Microbiology 11/24/21 10:07 Gram Stain - Final Sputum - Endotracheal Tube Aspirate Sputum Culture - Final Klebsiella oxytoca A&P Assessment and plan (1) Paroxysmal atrial fibrillation with RVR: Early afternoon went into A. fib with RVR heart rates into 150s-160s. BP 103/74. Metoprolol 5 mg IV push for now. Potassium 3.9. Check magnesium level. Check TSH. Continue telemetry monitoring. TTE once heart rate is better. Status: Acute (2) Oropharyngeal dysphagia: Continue n.p.o. for now unless cleared by speech therapy to start some oral intake. Discussed with his as well. Noted oropharyngeal dysphagia, significant penetration into upper airway and possibly small amount of aspiration on MBS. Continues n.p.o. Continue ST reassessments. Discussed with his , discussed we will be following up on improvement in his swallowing, but given presence of the mass, it is a possibility he may end up requiring a feeding tube. Status: Acute (3) Stridor: Continue post tracheostomy care. Suctioning. Ask for a small mirror to help him with trach self-care/suctioning. Status post tracheostomy this morning 11/24. Doing well after surgery. Came off vent support. Continue humidified oxygen. Suctioning. Trach care. DC planning. is very concerned how she will manage trach care at home. Appreciate case management assistance, to be coming over with sister to learn more about tracheostomy. Status: Acute (4) Supraglottic mass: Biopsies taken on 11/24. Status: Acute (5) Dyspnea: Status post tracheostomy due to upper airway obstruction. Status: Acute Attestations Medical Necessity Statement*: Continue admission for assessment management of A. fib with RVR. Postorchiectomy care. Critical Care Time: The high probability of a clinically significant, sudden or life threatening deterioration of the patient's cardiac system(s) required my full and direct attention, intervention and personal management. The critical care time is as shown. This time is in addition to time spent performing any reported procedures but includes the following: x Data and vital sign review and interpretation x Patient assessment, examination and intervention x Documentation x Medication orders and management Critical Care Time (min): 35 Coding Level of Care Code Acute Customer Service Leader for [facility] Fwd Diagnoses Oropharyngeal dysphagia R13.12 Stridor R06.1 Supraglottic mass J38.7 Dyspnea R06.00 Paroxysmal atrial fibrillation with RVR I48.0
[2021-11-26 12:43] LABS: Magnesium 2.2 mg/dL (1.7-2.3)
--- NOTE | 2021-11-26 13:00 | PC.NURSE ---
heart rate elevated to 170 at this time with metoprolol iv given attempted to slow heart rate pt is starting to suction own trach
[2021-11-26 13:19] LABS: Thyroid Stimulating Hormone 0.85 uIU/mL (0.27-4.20)
[2021-11-26] MEDS: lactated ringers 500 ML 150 ML IV (13:39)
--- NOTE | 2021-11-26 13:56 | PC.NURSE ---
heart rate remains elevated doctor called orders noted iv fluid started pt did not want ng at this time doctor aware will talk with him about peg tube later
--- NOTE | 2021-11-26 15:11 | PC.NUTR ---
TF consult for Pulmocare 1.5 received. No wt in chart for Pt so used 210 lbs from previous admission. Recommend beginning Pulmocare 1.5 @ 10 mls/hr and increasing 10 mls Q8H as tolerated until goal rate of 50 mls/hr is reached with 200 ml flushes Q6H per MD order. Details in RD assessment.
--- NOTE | 2021-11-26 17:01 | NUR.SHIFT ---
Shift Note Frequent safety and comfort rounds continue. Orders and/or nursing care completed as indicated. Patient monitored for response to intervention and treatment(s). Education provided includes ng tube and tube feeding Patient prefers not to have ng tube at this time doctor aware has consulted for surgery possible g tube. Will continue to monitor.
[2021-11-26] MEDS: artificial tears Op Soln 15 mL Btl 1 DROP EYE-BOTH (20:02)
[2021-11-27] VITALS (33 sets, daily range): BP systolic 100–144; BP diastolic 61–91; PULSE 81–118; RESP 15–28; TEMP 36.7–37.2; O2SAT 88–97
[2021-11-27] MEDS: enoxaparin 40 mg/0.4 mL Syringe SUBCUT ×2 (01:22→23:59)
[2021-11-27 04:48] LABS: Basophils % 0.2 %; Eosinophils % 0.3 %; Hematocrit 43.7 % (42.0-52.0); Lymphocytes # 1.5 10^3/uL (0.8-4.8); Lymphocytes % 14.1 %; Mean Corpuscular HGB Conc 34.3 g/dL (30.0-36.0); Mean Corpuscular Hemoglobin 30.1 pg (28.0-34.0); Mean Corpuscular Volume 87.6 fl (80-94); Mean Platelet Volume 9.6 fL (7.4-10.4); Monocytes # 0.8 10^3/uL (0.2-0.9); Monocytes % 7.8 %; Neutrophils # 8.03 10^3/uL (1.8-7.7); Neutrophils % 77.2 %; Nucleated Red Blood Cells % 0 %; Platelet Count 260 10^3/cmm (130-400); Red Blood Count 4.99 10^6/uL (4.1-5.3); Red Cell Distribution Width 12.5 % (12.1-15.1); White Blood Count 10.4 10^3/uL (4.0-10.0)
[2021-11-27 05:06] LABS: Anion Gap 15.4 (5-19); Blood Urea Nitrogen 17 mg/dL (8-23); Calcium 9.1 mg/dL (8.5-10.5); Carbon Dioxide 24 mmol/L (22-29); Chloride 100 mmol/L (98-107); Glucose 93 mg/dL (65-115); Osmolality Calculated 283 mOsm/kg (285-295); Potassium 3.4 mmol/L (3.5-5.1); Sodium 136 mmol/L (136-145)
--- NOTE | 2021-11-27 06:02 | P.CONIM_ITS ---
Providers/Reason For Consult Consulting Physician/Specialty*: Tristin Sanders MD Reason for Consult*: Feeding difficulty Requesting Physician: Dr. Chapman Attending Physician: Lanre Chapman Primary Care Provider: Jovani Mcnally History of Present Illness History of Present Illness Chief Complaint: Feeding issues History of present illness: Mr.Ernie Pennington is a 71 year old male Shortness of breath over the past couple of months and about 2 weeks ago he had an episode of bronchitis and received some antibiotics but his symptoms never improved. Patient presented to the ER about 2 days ago or so and further work-up was doneIn the form of CT scan of the neck with contrast that showed: CT neck w con: 1.? Irregular soft tissue mass involving the supraglottic and glottic airway centered in the left piriform sinus involving the vocal cords. This results in severe left to right narrowing of the glottis. Findings most compatible with neoplasm. Recommend direct visualization and biopsy. 2.? Involvement of the left aryepiglottic fold extending into the left piriform sinus. Erosive changes involving the left greater than right thyroid cartilage, cricoid cartilage and arytenoids. 3. ? Involvement of the anterior commissure with midline crossing. 4.? 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 This can be further evaluated with PET CT or MRI. 5.? No visualized cervical lymphadenopathy. 6.? Retention cyst right maxillary sinus. 7.? Normal posterior nasopharynx and parapharyngeal fat. X-ray chest:: 1.? Chronic patchy infiltrates in right lower lobe with pleural plaques uncha nged since September 07, 2021. No new infiltrates. 2.? No other significant changes from previous. Patient was taken emergently for tracheostomy by ENT serviceOn 11/24/2021. Further work-up Showed the patient has his dysphagia evaluation Patient undergone a modified barium swallow that did show: The swallowing of various consistencies of barium was monitored fluoroscopically with video recording. There was significant penetration into the upper airway and possibly a small a mount of aspiration. Detailed report of the evaluation of the swallowing will be rendered by the speech therapy department. General surgery was then consulted for PEG tube placement. Review of Systems General: Reports: 10 or more systems reviewed and unremarkable except in HPI and below Medications/Allergies Home Medications Medication Instructions Recorded Confirmed Last Taken Type albuterol sulfate 90 mcg/actuation 2 puff INHALATION Q6H PRN 11/23/21 11/23/21 Unknown History aerosol inhaler clindamycin HCl 300 mg capsule 300 mg PO BID 11/23/21 11/23/21 Unknown History clopidogrel 75 mg tablet 75 mg PO DAILY 11/23/21 11/23/21 Unknown History Allergies Allergy/AdvReac Type Severity Reaction Status Date / Time No Known Allergies Allergy Verified 11/27/21 06:09 Current Medications Generic Name Dose Route Start Last Admin Trade Name Freq PRN Reason Stop Dose Admin Albuterol/Ipratropium 3 ml 11/24/21 00:29 11/26/21 20:38 Ipratropium-Albuterol 3 Ml Neb INHALATION 3 ml Q6H PRN Administration SHORTNESS OF BREATH Artificial Tears 1 drop 11/26/21 19:29 11/26/21 20:02 Artificial Tears Op Soln 15 Ml Btl EYE-BOTH 1 drop Q4H PRN Administration DRY EYE(S) Enoxaparin Sodium 40 mg 11/25/21 00:30 11/27/21 01:22 Enoxaparin 40 Mg/0.4 Ml Syringe SUBCUT 40 mg Q24H YANA Administration Morphine Sulfate 2 mg 11/24/21 09:00 11/25/21 14:35 Morphine 4 Mg/Ml Sdv 1 Ml IVP 2 mg Q30M PRN Administration SEVERE PAIN Vitals/I&O/Wt Last Vital Signs Temp 98.5 F 11/27/21 00:30 Pulse 94 11/27/21 03:01 Resp 20 H 11/27/21 03:01 BP 120/67 11/27/21 03:01 Pulse Ox 95 11/27/21 03:01 11/26/21 11/26/21 11/27/21 14:59 22:59 06:59 Intake Total 500 / 500 Output Total 200 / 200 850 / 1050 Balance -200 / -200 -350 / -550 Physical Exam Const: COMMON NORMALS: no acute distress and patient oriented x3 GENERAL APPEARANCE: cooperative ORIENTATION/CONSCIOUSNESS: Yes awake, Yes oriented to person, Yes oriented to place and Yes oriented to time HENMT: COMMON NORMALS: normocephalic HEAD & SCALP: normocephalic Eye: COMMON NORMALS: Equal, round and reactive pupils present and no scleral icterus PUPIL: Yes Equal, round and reactive pupils present Neck/C-Spine: OTHER: Tracheostomy in place Chest: COMMONS NORMALS: normal inspection of the chest OTHER: Lower midline sternotomy Resp: COMMON NORMALS: normal respiratory effort and clear to auscultation bilaterally AUSCULTATION: clear to auscultation bilaterally Cardio: COMMON NORMALS: S1 normal heart sound present and S2 normal heart sound present; negative for No murmurs present (Cardio) HEART SOUNDS: S1 normal heart sound present and S2 normal heart sound present GI: COMMON NORMALS: Soft to palpation; negative for No hepatosplenomegaly present INSPECTION: Yes normal to inspection PALPATION: Yes Soft to palpation, No Firmness to palpation present (GI), No Tenderness to palpation present (GI), No Guarding due to palpation present (GI), No Rigid due to palpation and No No hepatosplenomegaly present Neuro: COMMON NORMALS: patient oriented x3 SENSORIUM/ORIENTATION: Yes oriented to person, Yes oriented to place and Yes oriented to time Psych: COMMON NORMALS: mental status grossly normal Skin: COMMON NORMALS: no rashes or lesions noted GENERAL SKIN EXAM: no rashes or lesions noted Data : 11/27/21 04:15 11/27/21 04:15 Micro: Microbiology 11/24/21 10:07 Gram Stain - Final Sputum - Endotracheal Tube Aspirate Sputum Culture - Final Klebsiella oxytoca A&P Assessment and plan (1) Dysphagia: Plan of care; After thorough history and physical examination and reviewing the chart and images with my personal interpretation of the CT scan of the neck, definitely there is a big growth of the larynx,will plan to perform endoscopic guided percutaneous gastrostomy feeding tube placement. I discussed with the patient and his Ms. Ritter(over the phone in the presence of nursing staff )in detail the risk,benefits,alternatives and indications.The risk of aspiration, higher risk of bleeding due to the size of the tumor, soft tissue injury, perforation of the stomach/esophagus and other potential concomitant complications were explained to the patient in details,aslo the potential need for Thoracic and or Abdominal surgery to repair any complications.The patient understood this well and did agree to proceed. Rationale was carefully and clearly discussed with the patient.Appropriate informed consent have been reviewed and signed All questions have been answered and all concerns have been addressed to patient's satisfaction. We will plan for tomorrow Status: Acute Consult Attestations Medical Necessity Statement: Per admitting service Coding Level of Care Code Acute Continuous Improvement Coordinator for [facility] Diagnoses Dysphagia R13.10
--- NOTE | 2021-11-27 08:08 | P.PN_ITS ---
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 The patient is without c/o. Medications: Reviewed: Yes Vitals/I&O/Wt Last Vital Signs Temp 98.1 F 11/27/21 04:01 Pulse 93 11/27/21 07:30 Resp 15 11/27/21 07:30 BP 115/72 11/27/21 07:30 Pulse Ox 93 11/27/21 07:30 11/26/21 11/27/21 11/27/21 22:59 06:59 14:59 Intake Total 500 / 500 20 / 520 Output Total 850 / 1050 125 / 1175 Balance -350 / -550 -105 / -655 Physical Exam Const: COMMON NORMALS: no acute distress, average body habitus and patient oriented x3 GENERAL APPEARANCE: cooperative and well developed HENMT: COMMON NORMALS: normocephalic, atraumatic and Normal external nose present HEAD & SCALP: normocephalic and atraumatic FACE & SINUS: normal facial exam and face symmetric NOSE: Normal external nose present Eye: COMMON NORMALS: Equal, round and reactive pupils present, EOMs intact bilaterally, conjunctivae normal and no scleral icterus CONJUNCTIVA: Yes conjunctivae normal PUPIL: Yes Equal, round and reactive pupils present Lymph: LYMPHATIC: no lymphadenopathy noted Chest: COMMONS NORMALS: normal inspection of the chest Neuro: COMMON NORMALS: patient oriented x3 Data : 11/27/21 04:15 11/27/21 04:15 Micro: Microbiology 11/24/21 10:07 Gram Stain - Final Sputum - Endotracheal Tube Aspirate Sputum Culture - Final Klebsiella oxytoca Attestation for Other Data: I personally reviewed and interpreted the following: Other data: Path Report: Moderately differentiated SCCA of the larynx A&P Assessment and plan (1) Supraglottic mass: Impression: 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 Sanders Status: Acute Attestations Medical Necessity Statement*: I was consulted to assist in management of the patient's airway and laryngeal tumor Coding Level of Care Code Acute Program Director Substance Abuse for [facility] Diagnoses Supraglottic mass J38.7 Dysphagia R13.10
[2021-11-27] MEDS: ipratropium-albuterol 3 mL Neb INHALATION (09:25)
--- NOTE | 2021-11-27 12:34 | PC.SOCIAL ---
IMM UPDATED IMM dated and initialed and copy given to patient.
--- NOTE | 2021-11-27 13:46 | PM.PN ---
Subjective Subjective: Interval history: States he is doing all right. Denies chest pain or pressure. I spoken with surgery Today about feeding tube. Tells me the surgery doctor had previously worked on his hernias. Vitals/I&O/Wt Last Vital Signs Temp 98.1 F 11/27/21 04:01 Pulse 106 H 11/27/21 12:30 Resp 22 H 11/27/21 11:01 BP 124/70 11/27/21 12:30 Pulse Ox 94 11/27/21 12:30 11/26/21 11/27/21 11/27/21 22:59 06:59 14:59 Intake Total 500 / 500 20 / 520 Output Total 850 / 1050 125 / 1175 500 / 500 Balance -350 / -550 -105 / -655 -500 / -500 Physical Exam Const: COMMON NORMALS: no acute distress and patient oriented x3 HENMT: COMMON NORMALS: oropharynx normal Neck/C-Spine: COMMON NORMALS: no JVD OTHER: Tracheostomy Resp: COMMON NORMALS: normal respiratory effort and clear to auscultation bilaterally AUSCULTATION: clear to auscultation bilaterally Cardio: COMMON NORMALS: no JVD, S1 normal heart sound present, S2 normal heart sound present and No murmurs present (Cardio) RATE: tachycardic RHYTHM: abnormal rhythm irregularly irregular HEART SOUNDS: S1 normal heart sound present and S2 normal heart sound present GI: COMMON NORMALS: Normal to inspection, nondistended, normoactive bowel sounds present, Soft to palpation and non-tender PALPATION: Yes Soft to palpation Extremity: COMMON NORMALS: no joint enlargement and no pedal edema Neuro: COMMON NORMALS: patient oriented x3 and moves all extremities Skin: COMMON NORMALS: no rashes or lesions noted GENERAL SKIN EXAM: no rashes or lesions noted Data : 11/27/21 04:15 11/27/21 04:15 Micro: Microbiology 11/24/21 10:07 Gram Stain - Final Sputum - Endotracheal Tube Aspirate Sputum Culture - Final Klebsiella oxytoca A&P Assessment and plan (1) Paroxysmal atrial fibrillation with RVR: Additional potassium to replace hypokalemia. Responded to metoprolol pushes, heart rates in the low 100s, currently sinus rhythm. Sinus tachycardia, possibly mild dehydration as he has not been able to eat or drink, will give additional IV fluid today. Anticipated PEG tube placement tomorrow. Subsequently consider anticoagulation given history of CVA Continue telemetry monitoring. TTE Status: Acute (2) Oropharyngeal dysphagia: Additional IVF today. Tells me he and surgery are planning for PEG tube for tomorrow, so that he may start feeding subsequently. Noted oropharyngeal dysphagia, significant penetration into upper airway and possibly small amount of aspiration on MBS. Continues n.p.o. Continue ST reassessments. Possible aspiration pneumonia with Klebsiella growing from respiratory culture. Add doxycycline for now empirically Status: Acute (3) Stridor: Continue post tracheostomy care. Suctioning. Ask for a small mirror to help him with trach self-care/suctioning. Status post tracheostomy this morning 11/24. Doing well after surgery. Came off vent support. Continue humidified oxygen. Suctioning. Trach care. DC planning. is very concerned how she will manage trach care at home. Appreciate case management assistance, to be coming over with sister to learn more about tracheostomy or other discharge options. Status: Acute (4) Supraglottic mass: Biopsies taken on 11/24. 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 Discussed with his . ENT plans appreciated for PET scan, subsequently arrangements for laryngectomy. Status: Acute (5) Dyspnea: Status post tracheostomy due to upper airway obstruction. Status: Acute Attestations Medical Necessity Statement*: Continue admission for assessment of management following tracheostomy due to new diagnosis of head and neck cancer, persistent dysphagia, PEG tube placement, disposition planning and arrangements. Coding Level of Care Code Acute Men'S Furnishings Salesperson for [facility] Fwd Diagnoses Paroxysmal atrial fibrillation with RVR I48.0 Oropharyngeal dysphagia R13.12 Stridor R06.1 Supraglottic mass J38.7 Dyspnea R06.00
[2021-11-27] MEDS: lidocaine 1% 5 ML in potassium chloride premix 100 ML 25 ML IV (14:06)
[2021-11-27] MEDS: lactated ringers 500 ML 75 ML IV (14:06)
[2021-11-27] MEDS: doxycycline 100 MG in sodium chloride 0.9% (plus) 100 ML IV (15:12)
[2021-11-28] VITALS (14 sets, daily range): BP systolic 91–148; BP diastolic 62–92; PULSE 78–112; RESP 16–23; TEMP 36.6–37.5; O2SAT 91–97
[2021-11-28] MEDS: doxycycline 100 MG in sodium chloride 0.9% (plus) 100 ML IV ×2 (02:26→17:01)
[2021-11-28 05:05] LABS: Basophils % 0.2 %; Eosinophils % 0.3 %; Hematocrit 42.3 % (42.0-52.0); Hemoglobin 14.8 g/dL (11.7-16.6); Lymphocytes # 1.3 10^3/uL (0.8-4.8); Lymphocytes % 13.1 %; Mean Corpuscular Hemoglobin 29.8 pg (28.0-34.0); Mean Corpuscular Volume 85.1 fl (80-94); Mean Platelet Volume 10.1 fL (7.4-10.4); Monocytes # 0.8 10^3/uL (0.2-0.9); Monocytes % 7.6 %; Neutrophils # 7.89 10^3/uL (1.8-7.7); Neutrophils % 78.5 %; Nucleated Red Blood Cells % 0 %; Platelet Count 317 10^3/cmm (130-400); Red Blood Count 4.97 10^6/uL (4.1-5.3); Red Cell Distribution Width 12.4 % (12.1-15.1); White Blood Count 10.1 10^3/uL (4.0-10.0)
[2021-11-28 05:31] LABS: Anion Gap 19.9 (5-19); Blood Urea Nitrogen 17 mg/dL (8-23); Calcium 8.5 mg/dL (8.5-10.5); Carbon Dioxide 23 mmol/L (22-29); Chloride 103 mmol/L (98-107); Glucose 109 mg/dL (65-115); Magnesium 2.2 mg/dL (1.7-2.3); Osmolality Calculated 296 mOsm/kg (285-295); Potassium 3.9 mmol/L (3.5-5.1); Sodium 142 mmol/L (136-145)
[2021-11-28 05:36] LABS: Creatinine Clr Calc Pharmacy 95.3767
--- NOTE | 2021-11-28 06:31 | PC.NURSE ---
Chlorahexadine bath completed for scheduled procedure today.
--- NOTE | 2021-11-28 07:01 | P.PN_ITS ---
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 The patient is doing well from this standpoint. He has no c/o. The patient is to have a PEG placed today. Medications: Reviewed: Yes Vitals/I&O/Wt Last Vital Signs Temp 98.8 F 11/28/21 04:00 Pulse 100 11/28/21 06:00 Resp 20 H 11/28/21 04:00 BP 119/76 11/28/21 04:00 Pulse Ox 92 11/28/21 04:00 11/27/21 11/28/21 11/28/21 22:59 06:59 14:59 Intake Total 705 / 705 100 / 805 Output Total 400 / 900 Balance 705 / 205 -300 / -95 Weight last 48 hrs Weight 79.197 kg Physical Exam Const: COMMON NORMALS: no acute distress and patient oriented x3 NUTRITIONAL APPEARANCE: cachectic HENMT: COMMON NORMALS: normocephalic, atraumatic, external ears normal and Normal external nose present HEAD & SCALP: normocephalic and atraumatic FACE & SINUS: normal facial exam NOSE: Normal external nose present EXTERNAL EAR: Yes external ears normal Eye: COMMON NORMALS: Equal, round and reactive pupils present, EOMs intact bilaterally, conjunctivae normal and no scleral icterus CONJUNCTIVA: Yes conjunctivae normal PUPIL: Yes Equal, round and reactive pupils present Neck/C-Spine: COMMON NORMALS: full ROM, no lymphadenopathy and Thyroid normal GENERAL: Yes tracheostomy present (+ mucous, but no erythema or induration.) THYROID: Thyroid normal Lymph: LYMPHATIC: no lymphadenopathy noted Chest: COMMONS NORMALS: normal inspection of the chest Neuro: COMMON NORMALS: patient oriented x3 Data : 11/28/21 04:27 11/28/21 04:27 Attestation for Other Data: I personally reviewed and interpreted the following: Other data: Path Report from laryngeal biopsy A&P Assessment and plan (1) Supraglottic mass: Impression: 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 Sanders' note for details. Status: Acute Attestations Medical Necessity Statement*: I was consulted to assist in airway management and care of the patient's laryngeal tumor. Coding Level of Care Code Acute Arborist Representative for [facility] Diagnoses Supraglottic mass J38.7 Dysphagia R13.10
--- NOTE | 2021-11-28 09:00 | USCV_ITS ---
Adarsh Pennington Age: 71 Gender: M : 1950 Exam Date: 11/28/2021 09:05 Ordering Phys: Lanre Chapman MD Technologist: Exam Location: [facility] Indication: CHF BP: / HR: Rhythm: Sinus Technical Quality: Very technically difficult study MEASUREMENTS (Male / Female) Normal Values FINDINGS Left Ventricle Right Ventricle Right Atrium Left Atrium Mitral Valve Aortic Valve Tricuspid Valve Pulmonic Valve Pericardium Aorta CONCLUSIONS No windows available for assessment of cardiac structure and function. Chula Velasquez MD (Electronically Signed) Final Date: 28 November 2021 16:54 S
--- NOTE | 2021-11-28 11:11 | ANES.PREANE2 ---
Pre-Anesthetic Assessment Height/Weight: Height 1.85 m Weight 79.197 kg Temp Pulse Resp BP Pulse Ox 98.1 F 84 16 132/74 94 11/28/21 08:00 11/28/21 09:15 11/28/21 09:15 11/28/21 08:00 11/28/21 09:15 Preop Diagnosis: Pharyngeal tumor Operation Date: 11/24/21 06:00 Proposed Procedures p Tracheostomy(Not Applicable) - Ezio Cerda MD s Direct Laryngoscopy(Not Applicable) - Ezio Cerda MD Operation Date: 11/28/21 12:30 Proposed Procedures p PEG Tube Insertion(Not Applicable) - Tristin Sanders MD Familial anesthetic complications: None Was Beta Danelle taken within 24 hours: N/A Was Clonidine taken within 24 hours: N/A Last intake: > 8hrs Exam alert, oriented x 3, clear to auscultation bilaterally and regular rate & rhythm Airway Cervical ROM: within normal limits Mallampati: Class II Dentition: false Neuropsych Cerebrovascular Accident Anesthetic Plan ASA status: 4 Anesthesia: MAC Medications/Allergies Home Medications Medication Instructions Recorded Confirmed Last Taken Type albuterol sulfate 90 mcg/actuation 2 puff INHALATION Q6H PRN 11/23/21 11/23/21 Unknown History aerosol inhaler clindamycin HCl 300 mg capsule 300 mg PO BID 11/23/21 11/23/21 Unknown History clopidogrel 75 mg tablet 75 mg PO DAILY 11/23/21 11/23/21 Unknown History Allergies Allergy/AdvReac Type Severity Reaction Status Date / Time No Known Allergies Allergy Verified 11/27/21 06:09 Current Medications Generic Name Dose Route Start Last Admin Trade Name Freq PRN Reason Stop Dose Admin Albuterol/Ipratropium 3 ml 11/24/21 00:29 11/27/21 09:25 Ipratropium-Albuterol 3 Ml Neb INHALATION 3 ml Q6H PRN Administration SHORTNESS OF BREATH Artificial Tears 1 drop 11/26/21 19:29 11/26/21 20:02 Artificial Tears Op Soln 15 Ml Btl EYE-BOTH 1 drop Q4H PRN Administration DRY EYE(S) Enoxaparin Sodium 40 mg 11/25/21 00:30 11/27/21 23:59 Enoxaparin 40 Mg/0.4 Ml Syringe SUBCUT 40 mg Q24H YANA Administration Doxycycline Hyclate 100 mg/ 100 mls @ 100 mls/hr 11/27/21 15:00 11/28/21 03:38 Sodium Chloride IV Infused Q12H YANA Infusion Protocol Morphine Sulfate 2 mg 11/24/21 09:00 11/25/21 14:35 Morphine 4 Mg/Ml Sdv 1 Ml IVP 2 mg Q30M PRN Administration SEVERE PAIN Data Anesthesia : 11/28/21 04:27 11/28/21 04:27 Short CBC 11/27/21 11/28/21 Range/Units 04:15 04:27 WBC 10.4 H 10.1 H (4.0-10.0) 10^3/uL Hgb 15.0 14.8 (11.7-16.6) g/dL Hct 43.7 42.3 (42.0-52.0) % MCV 87.6 85.1 (80-94) fl Plt Count 260 317 (130-400) 10^3/cmm Neut % (Auto) 77.2 78.5 % Neut # (Auto) 8.03 H 7.89 H (1.8-7.7) 10^3/uL BMP 11/27/21 11/28/21 04:15 04:27 Sodium 136 142 Potassium 3.4 L 3.9 Chloride 100 103 Carbon Dioxide 24 23 BUN 17 17 Creatinine 0.5 L 0.4 L Glucose 93 109 Calcium 9.1 8.5 Cardiac Studies: No Data to Display
[2021-11-28] MEDS: sodium chloride 0.9% 1,000 ML 30 ML IV (11:20)
--- NOTE | 2021-11-28 11:42 | PM.PN ---
Subjective Subjective: Interval history: Patient overall is about the same, transferred from the ICU to the floor Medications: Reviewed: Yes Vitals/I&O/Wt Last Vital Signs Temp 99.5 F 11/28/21 11:05 Pulse 112 H 11/28/21 11:05 Resp 22 H 11/28/21 11:05 BP 130/76 11/28/21 11:05 Pulse Ox 92 11/28/21 11:05 11/27/21 11/28/21 11/28/21 22:59 06:59 14:59 Intake Total 705 / 705 100 / 805 Output Total 400 / 900 Balance 705 / 205 -300 / -95 Weight last 48 hrs Weight 174 lb 9.6 oz Physical Exam Narrative: EXAM NARRATIVE: Patient is conscious alert oriented X3 No apparent distress BMI 23 Head and neck examination PERRLA no masses no cervical lymphadenopathy no jaundice Tracheostomy in place Abdomen nontender nondistended soft no organomegaly guarding or rigidity/no signs of peritonitis Data : 11/28/21 04:27 11/28/21 04:27 A&P Assessment and plan (1) Dysphagia: Plan to form endoscopic guided percutaneous gastrostomy feeding tube placement today in the OR. Informed consent per chart Status: Acute Attestations Medical Necessity Statement*: Per admitting service Coding Level of Care Code Acute Jukebox Operator for [facility] Diagnoses Dysphagia R13.10
--- NOTE | 2021-11-28 12:13 | PM.OP ---
Operative Report Date of procedure: November 28, 2021 Pre-op diagnosis: Preop Diagnosis Pharyngeal tumor Preop Diagnosis: Dysphagia Post-op diagnosis: Dysphagia Post-op findings: Mild prepyloric gastritis Procedure done: Endoscopic guided percutaneous gastrostomy feeding tube placement Implants: 20 Latvian PEG tube level at the skin 6-7 cm Surgeon: Tristin Sanders MD Geology Faculty Member: mathematical technician Jacinta health records technology teacher Karina [facility] nurse Martha Anesthesia: MAC (skidder runner Sohail Shrestha and Dr. Chacon) and Local (Lidocaine 1%) Estimated blood loss: 5 Procedure: Patient was identified in the holding area, was taken to the OR placed first in supine position, timeout was done verifying the patient's name, date of , and procedure, all were in agreement. IV propofol was infused by the anesthesia providers, patient was placed in supine position, started by introducing the EGD via the mouth under direct visualization, the patient was continuously monitored via cardiac tech, I was able to assess the esophagus stomach and duodenum till the second part. Note I did not encounter any difficulty intubating the esophagus. GE junction at 40 cm from the incisors,the remaining of the examination was unremarkable except for some mild prepyloric gastritis I was able to identify a good light reflex through the anterior abdominal wall, corresponding to appropriate indentation of the examining finger At this point prep and drape of the anterior abdominal wall was done under the usual sterile technique, sterile gowns and gloves were used, lidocaine was infiltrated at the site of the needle insertion, my assistant professor of religion held onto the EGD, under direct visualization a needle with the sheath was inserted by me that come with the PEG kit, once the needle and catheter were inserted into the inflated stomach, a needle was taken out, and through the catheter the blue loop wire introduced through the catheter, and via the working channel of the EGD, the retrieval device was inserted under direct visualization, the blue loop was caught by the retrieval device, at this point the scope was taken out and a firm flexographic printing press operator was continued to be applied onto the blue loop wire, the blue loop was then released and the PEG tube was tightened to it outside the patient's mouth, and with the remaining of the blue loop wire was Outside the abdominal wall, I was able to pull the PEG down all the way to the stomach, and have it placed in a good position at the level of 6-7 cm at the skin. The EGD was reintroduced by me, there was no evidence of bleeding, good spinning of the PEG tube was witnessed The scope was then retrieved The scope was retrieved under direct visualization and gas was deflated,no biopsies were obtained at that point. The PEG tube base and clamp were applied and the PEG tube was connected to gravity Patient tolerated the procedure well and was taken to the recovery area in stable condition I was present for the whole entire procedure
--- NOTE | 2021-11-28 21:37 | PM.PN ---
Subjective Subjective: Interval history: Using the meter at his bedside table to successfully self suction tracheostomy. Status post PEG placement. Denies pain. Denies chest pain or pressure. Denies trouble breathing. Vitals/I&O/Wt Last Vital Signs Temp 98.4 F 11/28/21 20:00 Pulse 78 11/28/21 20:00 Resp 18 11/28/21 20:00 BP 128/74 11/28/21 20:00 Pulse Ox 94 11/28/21 20:00 11/28/21 11/28/21 11/28/21 06:59 14:59 22:59 Intake Total 100 / 805 0 / 0 100 / 100 Output Total 400 / 900 5 / 5 680 / 685 Balance -300 / -95 -5 / -5 -580 / -585 Weight last 48 hrs Weight 79.197 kg Physical Exam Const: COMMON NORMALS: no acute distress and patient oriented x3 HENMT: COMMON NORMALS: oropharynx normal Neck/C-Spine: COMMON NORMALS: no JVD OTHER: Tracheostomy Resp: COMMON NORMALS: normal respiratory effort AUSCULTATION: rhonchi Cardio: COMMON NORMALS: no JVD, S1 normal heart sound present, S2 normal heart sound present and No murmurs present (Cardio) RATE: tachycardic RHYTHM: abnormal rhythm irregularly irregular HEART SOUNDS: S1 normal heart sound present and S2 normal heart sound present GI: COMMON NORMALS: Normal to inspection, nondistended, normoactive bowel sounds present, Soft to palpation and non-tender PALPATION: Yes Soft to palpation OTHER: PEG Extremity: COMMON NORMALS: no joint enlargement and no pedal edema Neuro: COMMON NORMALS: patient oriented x3 and moves all extremities Skin: COMMON NORMALS: no rashes or lesions noted GENERAL SKIN EXAM: no rashes or lesions noted Data : 11/28/21 04:27 11/28/21 04:27 A&P Assessment and plan (1) Paroxysmal atrial fibrillation with RVR: Additional episode of A. fib with RVR postoperatively, but otherwise heart rates have been remaining good. Consider addition of low-dose beta-arik once able to use PEG tube. Currently continue telemetry monitoring. TTE not useful. Discussed with his , once cleared by surgery consider addition of anticoagulation due to risk of CVA. Status: Acute (2) Oropharyngeal dysphagia: Status post PEG tube placement today. Not to be used for 24 hours. Continue additional IVF today. Subsequently start tube feeds once cleared by surgery Noted oropharyngeal dysphagia, significant penetration into upper airway and possibly small amount of aspiration on MBS. Continues n.p.o. Continue ST reassessments. Possible aspiration pneumonia with Klebsiella growing from respiratory culture. Added doxycycline for now empirically Status: Acute (3) Supraglottic mass: Biopsies taken on 11/24. 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 Discussed with his . ENT plans appreciated for PET scan, subsequently arrangements for laryngectomy. Status: Acute (4) Stridor: Self suctioning today with help of the mirror. Continue to encourage to come in to learn tracheostomy care. If unable to care for, may need to consider LTAC. Trach exchange within the next 1-2 days. Continue humidified oxygen. Suctioning. Trach care. DC planning. Status: Acute (5) Dyspnea: Status post tracheostomy due to upper airway obstruction. Status: Acute Attestations Medical Necessity Statement*: Continue admission for post tracheostomy care, pending trach exchange, status post PEG tube placement, pending initiation of tube feeds, disposition planning and arrangements for further follow-up for newly found supraglottic squamous cell cancer. Coding Level of Care Code Acute Farmworker Grain for [facility] Fwd Diagnoses Paroxysmal atrial fibrillation with RVR I48.0 Oropharyngeal dysphagia R13.12 Stridor R06.1 Supraglottic mass J38.7 Dyspnea R06.00
[2021-11-29] VITALS (8 sets, daily range): BP systolic 126–148; BP diastolic 70–82; PULSE 66–84; RESP 16–18; TEMP 36.4–36.8; O2SAT 95–98
[2021-11-29] MEDS: enoxaparin 40 mg/0.4 mL Syringe SUBCUT (00:20)
[2021-11-29] MEDS: sodium chloride 0.9% 1,000 ML 30 ML IV (01:01)
[2021-11-29] MEDS: doxycycline 100 MG in sodium chloride 0.9% (plus) 100 ML IV (03:53)
--- NOTE | 2021-11-29 05:33 | XR_ITS ---
WS: [id number] PORTABLE CHEST HISTORY: Tracheotomy change COMPARISON: 11/24/2021, 09/07/2021 Tracheostomy remains in good position. Subcutaneous emphysema along the RIGHT superior thorax and nec k is again identified without significant improvement. Interstitial thickening in the RIGHT lower lung field. Subsegmental atelectasis in the RIGHT infrahil ar region. Similar to the prior study. Pleural plaque noted within the inferior RIGHT thorax. Cardiac size: Normal. Mediastinum/Aorta: Mild atherosclerosis aorta. No osseous abnormality seen. XR/XR chest 1V portable [id number] IMPRESSION: 1. Tracheostomy in good position. 2. Continued subcutaneous emphysema over the superior RIGHT thorax and neck. 3. RIGHT lower lobe interstitial opacification and subsegmental atelectasis in the RIGHT infrahilar region with mild progression since the prior examinations .
--- NOTE | 2021-11-29 05:34 | PM.PN ---
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 The patient is o/w doing well today. Medications: Reviewed: Yes Vitals/I&O/Wt Last Vital Signs Temp 97.6 F 11/29/21 04:00 Pulse 73 11/29/21 04:00 Resp 18 11/29/21 04:00 BP 130/70 11/29/21 04:00 Pulse Ox 98 11/29/21 04:00 11/28/21 11/28/21 11/29/21 14:59 22:59 06:59 Intake Total 0 / 0 100 / 100 Output Total 680 / 685 Balance -5 / -5 -580 / -585 Weight last 48 hrs Weight 79.197 kg Physical Exam Const: COMMON NORMALS: no acute distress, average body habitus and patient oriented x3 HENMT: COMMON NORMALS: normocephalic, atraumatic and Normal external nose present HEAD & SCALP: normocephalic and atraumatic FACE & SINUS: normal facial exam NOSE: Normal external nose present Eye: COMMON NORMALS: Equal, round and reactive pupils present, EOMs intact bilaterally, conjunctivae normal and no scleral icterus CONJUNCTIVA: Yes conjunctivae normal PUPIL: Yes Equal, round and reactive pupils present Neck/C-Spine: COMMON NORMALS: Thyroid normal GENERAL: Yes trachea midline and Yes tracheostomy present (The trach site is clean and dry) THYROID: Thyroid normal Lymph: LYMPHATIC: no lymphadenopathy noted Neuro: COMMON NORMALS: patient oriented x3 Data : 11/28/21 04:27 11/28/21 04:27 A&P Assessment and plan (1) Supraglottic mass: Impression: Obstructing 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 doing well s/p tracheotomy Plan: - First trach change performed at the bedside today - Continue current trach care - D/C planning: as previously described - I will continue w/u and treatment after discharge - I will see the patient once weekly while an inpatient from this point on: please contact me for problems between visits Status: Acute (2) Dyspnea: Status: Acute Attestations Medical Necessity Statement*: I was consulted to assist in airway management and care of the patient's supraglottic mass Procedures Procedure Narrative Tracheotomy Change: verbal informed consent was obtained; the old trach tube was removed and was replaced with an uncuffed #8 Shiley trach tube without difficulty; the patient tolerated the procedure well and there were no complications. Coding Level of Care Code Acute Ball Points Inspector for [facility] Fwd Diagnoses Supraglottic mass J38.7 Dyspnea R06.00
[2021-11-29 06:46] LABS: Basophils % 0.4 %; Eosinophils # 0.1 10^3/uL (0.0-0.8); Eosinophils % 1.7 %; Hematocrit 40.5 % (42.0-52.0); Hemoglobin 13.7 g/dL (11.7-16.6); Lymphocytes # 1.9 10^3/uL (0.8-4.8); Lymphocytes % 22.6 %; Mean Corpuscular HGB Conc 33.8 g/dL (30.0-36.0); Mean Corpuscular Hemoglobin 29.5 pg (28.0-34.0); Mean Corpuscular Volume 87.3 fl (80-94); Mean Platelet Volume 10.2 fL (7.4-10.4); Monocytes # 0.6 10^3/uL (0.2-0.9); Monocytes % 7.8 %; Neutrophils # 5.49 10^3/uL (1.8-7.7); Neutrophils % 67.3 %; Nucleated Red Blood Cells % 0 %; Platelet Count 363 10^3/cmm (130-400); Red Blood Count 4.64 10^6/uL (4.1-5.3); Red Cell Distribution Width 12.6 % (12.1-15.1); White Blood Count 8.2 10^3/uL (4.0-10.0)
[2021-11-29 07:07] LABS: Anion Gap 18.4 (5-19); Blood Urea Nitrogen 20 mg/dL (8-23); Calcium 8.3 mg/dL (8.5-10.5); Carbon Dioxide 26 mmol/L (22-29); Chloride 105 mmol/L (98-107); Glucose 89 mg/dL (65-115); Osmolality Calculated 304 mOsm/kg (285-295); Potassium 3.4 mmol/L (3.5-5.1); Sodium 146 mmol/L (136-145)
[2021-11-29 07:11] LABS: Creatinine Clr Calc Pharmacy 95.3767
--- NOTE | 2021-11-29 10:28 | PC.NURSE ---
scope [id number] #[id number] Single use adapter.
--- NOTE | 2021-11-29 10:40 | PC.CHAP ---
Pastoral Care Encounter/Spiritual Assessment Type of Contact [] Declined charge out clerk visit [] Patient/Family/Request visit [] Outpatient visit [] Follow-up visit [] Physician referral [] Code/Alert [x] Routine visit [] Staff referral [] Actively dying [] Patient sleeping [] Family support [] [] Out of room [] Palliative care [] [] Receiving care in room [] Pre-surgical visit [] Trauma [] Long length of stay [] ICU visit [] Other: Relational/Emotional Strength [x] Patient feels connected with others/family/visitors/staff [] Distress [] Loneliness/isolation [] Abandonment Spirituality of Patient [x] Person of Shavon [x] Attends Quaker of their Shavon [x] Believes in Prayer [] Reads Bible or Hinduism materials [] There are Spiritual issues to be addressed Occupational Therapy Supervisor Interventions [x] Prayer [x] Active listening [x] Non-anxious presence [] Spiritual/emotional support [] Crisis/trauma care [] Spiritual counseling [] Bereavement support [] Provided bereavement packet [] Provided Bible/devotional materials [] Provided toy/stuffed animal, coloring book to patient or family member [] Provided Communion [] Anointing/[place] [] Salvation [x] Completed spiritual assessment [] Other: Impact on Illness or Injury [] Angry [] Fearful [] Anxious [] Often cries [] Exhaustion [] Unable to work [] Unable to attend yazdanism [] Unable to walk/stand [] Unable to read [] Unable to drive [] Unable to eat/drink [] Unable to sleep [] Unable to be with family [] Patient intubated [] Other: Summary Time spent with patient 10 min
--- NOTE | 2021-11-29 11:03 | PC.SOCIAL ---
IMM Update Pg. 2 of IMM updated and reviewed with patient. Copy provided.
--- NOTE | 2021-11-29 11:34 | PC.NUTR ---
With new wt in EMR updated TF consult for Pulmocare 1.5. Recommend beginning Pulmocare 1.5 @ 10 mls continuously and increasing 10 mls Q8H as tolerated until goal rate of 50 mls/hr is reached with 150 ml flushes Q4H or per MD order. Mohamud rep out of office until tomorrow. Will consult with which formula they will provide for Pt and then make recommendations for PEG tube feeds at that time. Details in RD assessment.
--- NOTE | 2021-11-29 15:29 | P.PN_ITS ---
Subjective Subjective: Interval history: Patient overall feels well, status post PEG tube placement 11/28/21 Vitals/I&O/Wt Last Vital Signs Temp 98.1 F 11/29/21 11:48 Pulse 74 11/29/21 11:48 Resp 18 11/29/21 11:48 BP 148/72 11/29/21 11:48 Pulse Ox 95 11/29/21 11:48 11/29/21 11/29/21 11/29/21 06:59 14:59 22:59 Output Total 0 / 685 250 / 250 Balance 0 / -585 -250 / -250 Weight last 48 hrs Weight 174 lb 9.6 oz Physical Exam Narrative: EXAM NARRATIVE: Patient is conscious alert oriented X3 No apparent distress BMI 23 Head and neck examination PERRLA no masses no cervical lymphadenopathy no jaundice Tracheostomy in place Abdomen nontender nondistended soft no organomegaly guarding or rigidity/no signs of peritonitis PEG tube in place 6-7 cm of the skin level with bilious output Data : 11/29/21 04:22 11/29/21 04:22 A&P Assessment and plan (1) Dysphagia: Can start using PEG tube for feeding purposes, I would recommend to start 10 mL/h as trophic feeds and advance every 4 hours to reach goal per nutrition recommendation. Assurance and education All questions have been answered and all concerns have been addressed to patient's satisfaction. Status: Acute Attestations Medical Necessity Statement*: Per admitting service Coding Level of Care Code Acute Sorting And Folding Supervisor for Chg Fwd Diagnoses Dysphagia R13.10
[2021-11-29] MEDS: doxycycline 100 mg Tablet PEG-TUBE (17:59)
--- NOTE | 2021-11-29 23:16 | P.PN_ITS ---
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 start tube feeds once cleared by surgery concern for aspiration pneumonia, patient is currently on doxycycline- switch to PEG today as patient has lost multiple iv access Status: Acute (3) Supraglottic mass: Biopsies taken on 11/24. 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 Discussed with his . ENT plans appreciated for PET scan, subsequently arrangements for laryngectomy. Status: Acute (4) Stridor: Self suctioning today with help of the mirror. Continue to encourage to come in to learn tracheostomy care. stating multiple barriers to discharge, chief being lack of space in their trailer home and her inability to take care of him. Attempting placement at SNF vs LTAC for safe discharge planning DC planning. Status: Acute (5) Dyspnea: Status post tracheostomy due to upper airway obstruction. Status: Acute Attestations Medical Necessity Statement*: s/p trach exchange and PEG placement. Disposition planning Coding Level of Care Code Acute Cytogenetic Technologist for Valdezg Fwd Diagnoses Paroxysmal atrial fibrillation with RVR I48.0 Oropharyngeal dysphagia R13.12 Supraglottic mass J38.7 Stridor R06.1 Dyspnea R06.00
[2021-11-30] VITALS: BP 138/79; PULSE 68; RESP 17; TEMP 36.4; O2SAT 96
[2021-11-30] MEDS: enoxaparin 40 mg/0.4 mL Syringe SUBCUT (00:54)
[2021-11-30 03:44] LABS: Basophils % 0.3 %; Eosinophils # 0.3 10^3/uL (0.0-0.8); Eosinophils % 3.8 %; Hematocrit 41.4 % (42.0-52.0); Hemoglobin 13.9 g/dL (11.7-16.6); Lymphocytes # 1.6 10^3/uL (0.8-4.8); Mean Corpuscular HGB Conc 33.6 g/dL (30.0-36.0); Mean Corpuscular Hemoglobin 29.6 pg (28.0-34.0); Mean Corpuscular Volume 88.1 fl (80-94); Mean Platelet Volume 9.2 fL (7.4-10.4); Monocytes # 0.7 10^3/uL (0.2-0.9); Neutrophils % 62.5 %; Nucleated Red Blood Cells % 0 %; Platelet Count 334 10^3/cmm (130-400); Red Cell Distribution Width 12.6 % (12.1-15.1); White Blood Count 6.9 10^3/uL (4.0-10.0)
[2021-11-30 04:00] VITALS: BP 132/74; PULSE 64; RESP 18; TEMP 36.5; O2SAT 95
[2021-11-30 04:20] LABS: Anion Gap 14.7 (5-19); Blood Urea Nitrogen 21 mg/dL (8-23); Calcium 8.5 mg/dL (8.5-10.5); Carbon Dioxide 29 mmol/L (22-29); Chloride 105 mmol/L (98-107); Glucose 102 mg/dL (65-115); Osmolality Calculated 303 mOsm/kg (285-295); Potassium 3.7 mmol/L (3.5-5.1); Sodium 145 mmol/L (136-145)
[2021-11-30 04:26] LABS: Creatinine Clr Calc Pharmacy 95.3767
[2021-11-30 07:27] VITALS: BP 138/72; PULSE 64; RESP 16; TEMP 36.8; O2SAT 97
[2021-11-30] MEDS: doxycycline 100 mg Tablet PEG-TUBE ×2 (10:05→18:43)
[2021-11-30 12:00] VITALS: BP 133/75; PULSE 73; RESP 16; TEMP 36.4; O2SAT 95
[2021-11-30 14:05] VITALS: PULSE 73; RESP 18; O2SAT 95
--- NOTE | 2021-11-30 14:09 | PC.RESP ---
RT performed trach care on pt, pt attempting to perform trach care
--- NOTE | 2021-11-30 18:26 | P.PN_ITS ---
Subjective Subjective: Afebrile, hemodynamically stable. No acute complaints. 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 Started tube feeds concern for aspiration pneumonia, patient is currently on doxycycline- switch to PEG today as patient has lost multiple iv access Status: Acute (3) Supraglottic mass: Biopsies taken on 11/24. 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 Discussed with his . ENT plans appreciated for PET scan, subsequently arrangements for laryngectomy. Status: Acute (4) Stridor: Self suctioning today with help of the mirror. Continue to encourage to come in to learn tracheostomy care. stating multiple barriers to discharge, chief being lack of space in their trailer home and her inability to take care of him. Attempting placement at SNF vs LTAC for safe discharge planning DC planning. Status: Acute (5) Dyspnea: Status post tracheostomy due to upper airway obstruction. Status: Acute Plan Patient is slowly learning how to take care of trach, however clearly he will need assistance. Per his she is not currently in a position to take care of the patient being sick herself, not having enough space and trailer home, not being familiar with DME. We have offered to teach her while still inpatient how to use appropriate equipment DME, trach care and requested her to come in multiple times, however states states she is in poor health and will not be coming in today. We are awaiting safe disposition planning to ensure that patient is able to get appropriate care once discharged from the hospital Attestations Medical Necessity Statement*: Awaiting appropriate disposition planning. Postop trach care. Started PEG feeds today. Coding Level of Care Code Acute Linux Systems Administrator for Chg Fwd Diagnoses Paroxysmal atrial fibrillation with RVR I48.0 Oropharyngeal dysphagia R13.12 Supraglottic mass J38.7 Stridor R06.1 Dyspnea R06.00
[2021-11-30 20:00] VITALS: BP 120/72; PULSE 81; RESP 18; TEMP 36.4; O2SAT 93
[2021-12-01] VITALS (10 sets, daily range): BP systolic 101–123; BP diastolic 61–76; PULSE 55–71; RESP 17–20; TEMP 36.5–36.8; O2SAT 94–98
[2021-12-01] MEDS: doxycycline 100 mg Tablet PEG-TUBE ×2 (09:46→17:22)
--- NOTE | 2021-12-01 10:23 | PC.SOCIAL ---
IMM update IMM updated with patient. He shook his head in agreeance that he understood. Copy Pg 2 provided. Initialled, dated, timed, and placed in chart.
--- NOTE | 2021-12-01 19:32 | P.PN_ITS ---
Subjective Subjective: no acute interim events. Tube feeds changed today to Jevity Medications: Reviewed: Yes Vitals/I&O/Wt Last Vital Signs Temp 97.8 F 12/01/21 19:10 Pulse 66 12/01/21 19:10 Resp 17 12/01/21 19:10 BP 101/61 12/01/21 19:10 Pulse Ox 95 12/01/21 19:10 12/01/21 12/01/21 12/01/21 06:59 14:59 22:59 Output Total 200 / 200 Balance -200 / -200 Data : 11/30/21 03:26 11/30/21 03:26 A&P Assessment and plan (1) Paroxysmal atrial fibrillation with RVR: Heart rate currently well controlled Status: Acute (2) Oropharyngeal dysphagia: Status post PEG tube placement 11/28. Started tube feeds concern for aspiration pneumonia, patient is currently on doxycycline- switch to PEG today as patient has lost multiple iv access Status: Acute (3) Supraglottic mass: Biopsies taken on 11/24. 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 Discussed with his . ENT plans appreciated for PET scan, subsequently arrangements for laryngectomy. Status: Acute (4) Stridor: Self suctioning today with help of the mirror. Continue to encourage to come in to learn tracheostomy care. stating multiple barriers to discharge, chief being lack of space in their trailer home and her inability to take care of him. Attempting placement at SNF vs LTAC for safe discharge planning DC planning. Status: Acute (5) Dyspnea: Status post tracheostomy due to upper airway obstruction. Status: Acute Plan Awaiting safe and appropriate dispossition planning. Per his she is not currently in a position to take care of the patient being sick herself, not having enough space and trailer home, not being familiar with DME, etc. We have offered to teach her while still inpatient how to use appropriate equipment DME, trach care and requested her to come in multiple times, however states states she is in poor health and will not be able to come in. Attestations Medical Necessity Statement*: tube feeds changed, awaiting safe and appropriate disposition planning Coding Level of Care Code Acute Linux Administrator for g Fwd Diagnoses Paroxysmal atrial fibrillation with RVR I48.0 Oropharyngeal dysphagia R13.12 Supraglottic mass J38.7 Stridor R06.1 Dyspnea R06.00
[2021-12-01] MEDS: enoxaparin 40 mg/0.4 mL Syringe SUBCUT (23:49)
[2021-12-02] VITALS (7 sets, daily range): BP systolic 98–113; BP diastolic 60–70; PULSE 60–82; RESP 16–18; TEMP 36.6–36.9; O2SAT 93–97
[2021-12-02] MEDS: doxycycline 100 mg Tablet PEG-TUBE (10:54)
--- NOTE | 2021-12-02 16:02 | PC.NURSE ---
THIS NURSE ATTEMPTED TO CALL REPORT TO [facility] THIS MORNING BUT THEY SAID THEY WERE UNABLE TO TAKE REPORT BECAUSE THEIR FAX MACHINE WAS DOWN AND THEY WEREN'T ABLE TO RECEIVE THE DISCHARGE ORDER. THIS NURSE THEN CALLED [facility] AGAIN AROUND 1545 AND THEY SAID THEY HAVE THE ORDER BUT NO ONE HAS HAD TIME TO GO OVER IT SO THEY COULD NOT TAKE REPORT. THEY SAID THEY WOULD CALL AND GET REPORT LATER WHEN THEY COULD. THE RIDE HAS BEEN SET UP AND SHOULD BE HERE SHORTLY. THIS NURSE WILL CONTINUE TO TRY AND GIVE REPORT BUT THE PT IS READY TO GO. WILL CONTINUE TO MONITOR PT UNTIL TRANSPORT GETS HERE.
--- NOTE | 2021-12-02 17:41 | PM.DCS ---
Discharge Providers Date of Admission: 11/24/21 08:11 Date of Discharge: December 02, 2021 Attending Provider at Admission: Ezio Cerda MD Attending Provider at Discharge: Zuly Lewis MD Primary Care Provider: Jovani Mcnally Diagnoses at Discharge Discharge Diagnosis (1) Paroxysmal atrial fibrillation with RVR: Status: Acute (2) Oropharyngeal dysphagia: Status: Acute (3) Supraglottic mass: Status: Acute (4) Stridor: Status: Acute (5) Dyspnea: Status: Acute Reason for Visit Reason for Visit: SOB, BRONCHITIS, FATIGUE Hospital Course Hospital Course 71-year-old gentleman found to have obstructing supraglottic mass, after presenting with respiratory stress, underwent biopsies, tracheostomy, with finding of squamous cell cancer which will need laryngectomy after PET scan after discharge to be arranged by [facility] as outpatient. Due to finding of aspiration PEG tube placed 11/28 and started on tube feeding 24 hrs after. Trach exchange was performed on 11/29. Patient tolerated both procedures well and has f/up appointment with ENT for subsequent care. He had one episode of transient A. fib with RVR postoperatively, but otherwise heart rates have remained controlled in sinus rhythm. Anticoagulation deferred for now given recent post op state. F/up with PCP for the same in due course. Transferred to SNF in stable condition. 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 echo complete* [id number] Routine Ultrasound 11/28/21 09:00 Completed Pending at discharge Category Date Time Status ES surgery / GI images Routine Exams 11/24/21 06:49 Taken Radiology Impressions Neck CT 11/23/21 11:38 IMPRESSION: 1. Irregular soft tissue mass involving the supraglottic and glottic airway centered in the left piriform sinus involving the vocal cords. This results in severe left to right narrowing of the glottis. Findings most compatible with neoplasm. Recommend direct visualization and biopsy. 2. Involvement of the left aryepiglottic fold extending into the left piriform sinus. Erosive changes involving the left greater than right thyroid cartilage, cricoid cartilage and arytenoids. 3. Involvement of the anterior commissure with midline crossing. 4. 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 This can be further evaluated with PET CT or MRI. 5. No visualized cervical lymphadenopathy. 6. Retention cyst right maxillary sinus. 7. Normal posterior nasopharynx and parapharyngeal fat. Notified BUBBA Mosqueda at 11/23/2021 2:40 PM. Modified Barium Swallow 11/25/21 07:59 IMPRESSION: Barium swallow as above. Chest X-Ray 11/29/21 05:33 IMPRESSION: 1. Tracheostomy in good position. 2. Continued subcutaneous emphysema over the superior RIGHT thorax and neck. 3. RIGHT lower lobe interstitial opacification and subsegmental atelectasis in the RIGHT infrahilar region with mild progression since the prior examinations. Laboratory Results WBC 6.9 10^3/uL (4.0-10.0) 11/30/21 03:26 RBC 4.70 10^6/uL (4.1-5.3) 11/30/21 03:26 Hgb 13.9 g/dL (11.7-16.6) 11/30/21 03:26 Hct 41.4 % (42.0-52.0) L 11/30/21 03:26 MCV 88.1 fl (80-94) 11/30/21 03:26 MCH 29.6 pg (28.0-34.0) 11/30/21 03:26 MCHC 33.6 g/dL (30.0-36.0) 11/30/21 03:26 RDW 12.6 % (12.1-15.1) 11/30/21 03:26 Plt Count 334 10^3/cmm (130-400) 11/30/21 03:26 MPV 9.2 fL (7.4-10.4) 11/30/21 03:26 Neut % (Auto) 62.5 % 11/30/21 03: Lymph % (Auto) 23.0 % 11/30/21 03:26 [place] % (Auto) 10.0 % 11/30/21 03:26 Eos % (Auto) 3.8 % 11/30/21 03:26 Baso % (Auto) 0.3 % 11/30/21 03:26 Neut # (Auto) 4.30 10^3/uL (1.8-7.7) 11/30/21 03: Lymph # (Auto) 1.6 10^3/uL (0.8-4.8) 11/30/21 03: [place] # (Auto) 0.7 10^3/uL (0.2-0.9) 11/30/21 03:26 Eos # (Auto) 0.3 10^3/uL (0.0-0.8) 11/30/21 03:26 Baso # (Auto) 0.0 10^3/uL (0.0-0.1) 11/30/21 03:26 Nucleated RBC % (auto) 0 % 11/30/21 03: Nucleated RBCs # 0.0 /100WBC 11/30/21 03:26 PT 13.20 SECONDS (12.1-14.9) 11/25/21 04:51 INR 0.97 (0.8-1.2) 11/25/21 04:51 APTT 34.0 SECONDS (23.9-36.7) 11/25/21 04:51 D-Dimer 0.54 ug/mIFEU (0-0.59) 11/23/21 11:01 Specimen Type Arterial 11/23/21 10:32 Sample Site Brachial, right 11/23/21 10:32 ABG pH 7.40 (7.35-7.45) 11/23/21 10:32 ABG pCO2 51.8 mmHg (35-45) H 11/23/21 10:32 ABG pO2 154.0 mmHg (80.0-100.0) H 11/23/21 10:32 ABG HCO3 31.8 mmol/L (22-26) H 11/23/21 10:32 ABG O2 Saturation 99.8 11/23/21 10:32 ABG Base Excess 5.4 mmol/L (-2.0-2.0) H 11/23/21 10:32 [place] Test N/a 11/23/21 10:32 A-a O2 Gradient 1.1 mmHg (5-10) L 11/23/21 10:32 Hematocrit 46.6 % (42-52) 11/23/21 10:32 Hgb O2 Saturation 99.0 % (95-100) 11/23/21 10:32 Carboxyhemoglobin 0.6 %THgb (0.4-20.1) 11/23/21 10:32 Methemoglobin 0.2 % (0.4-1.5) L 11/23/21 10:32 Total Hemoglobin 15.2 g/dL (14-18) 11/23/21 10:32 Sodium 139.0 mmol/L (131-143) 11/23/21 10:32 Potassium 4.2 mmol/L (3.5-5.0) 11/23/21 10:32 Glucose 101.0 mg/dL (70-115) 11/23/21 10:32 Ionized Calcium 1.2 mmol/L (1.1-1.4) 11/23/21 10:32 O2 Delivery Device Nc 11/23/21 10:32 O2 Liters/Min 3.0 % 11/23/21 10:32 FiO2 32.0 % 11/23/21 10:32 Home Care And Home Health Aides Teacher ID Amh 11/23/21 10:32 Sodium 145 mmol/L (136-145) 11/30/21 03:26 Potassium 3.7 mmol/L (3.5-5.1) 11/30/21 03:26 Chloride 105 mmol/L (98-107) 11/30/21 03:26 Carbon Dioxide 29 mmol/L (22-29) 11/30/21 03:26 Anion Gap 14.7 (5-19) 11/30/21 03:26 BUN 21 mg/dL (8-23) 11/30/21 03:26 Creatinine 0.4 mg/dL (0.7-1.2) L 11/30/21 03:26 GFR Calculation Not Reportable 11/30/21 03:26 Glucose 102 mg/dL (65-115) 11/30/21 03:26 Calculated Osmolality 303 mOsm/kg (285-295) H 11/30/21 03:26 Lactic Acid 1.0 mmol/L (0.5-2.2) 11/23/21 10:21 Calcium 8.5 mg/dL (8.5-10.5) 11/30/21 03:26 Magnesium 2.2 mg/dL (1.7-2.3) 11/28/21 04:27 Total Bilirubin 0.4 mg/dL (0.15-1.2) 11/23/21 10:21 AST 20 U/L (0-40) 11/23/21 10:21 ALT 10 U/L (0-41) 11/23/21 10:21 Alkaline Phosphatase 86 IU/L (40-130) 11/23/21 10:21 Troponin T Baseline 21 ng/L (0-15) H 11/23/21 10:21 Troponin T 120 Minute 25.66 ng/L (0-15) H 11/23/21 11:28 Delta Troponin T 4.66 ABS# (0-10) 11/23/21 11:28 Troponin T Hi Sens 6Hr 37.75 ng/L (0-15) H 11/23/21 17:00 Troponin T Hi Sens 6Hr Delta 16.75 ng/L (0-12) H* 11/23/21 17:00 NT-Pro-B Natriuret Pep 82 pg/mL (0-125) 11/23/21 10:21 Total Protein 6.9 g/dL (6.6-8.7) 11/23/21 10:21 Albumin 4.0 g/dL (3.5-5.2) 11/23/21 10:21 Globulin 2.9 g/dL (1.3-4.6) 11/23/21 10:21 Procalcitonin 0.04 ng/mL (0-0.5) 11/23/21 10:21 TSH 0.85 uIU/mL (0.27-4.20) 11/26/21 04:04 SARS-CoV-2 Ag (Rapid) Negative (Negative) 11/23/21 10:00 Vitals Last Vital Signs Temp 98.4 F 12/02/21 07:28 Pulse 82 12/02/21 16:00 Resp 17 12/02/21 16:00 BP 98/70 12/02/21 16:00 Pulse Ox 96 12/02/21 16:00 Discharge Plan Discharge Patient Disposition: Xfer SNF Condition: Stable Prescriptions: New acetaminophen 325 mg Tablet 650 mg PO Q6H PRN (Reason: Mild/Mod Pain Or Temp >/= 101) Qty: 0 0RF bisacodyl 5 mg Tablet,Delayed Release (Dr/Ec) 10 mg PO DAILY PRN (Reason: Constipation (see protocol)) Qty: 0 0RF Continued clopidogrel 75 mg tablet 75 mg PO DAILY 0RF albuterol sulfate 90 mcg/actuation HFA aerosol inhaler 2 puff INHALATION Q6H PRN (Reason: Shortness Of Breath) 0RF Discontinued clindamycin HCl 300 mg capsule 300 mg PO BID 0RF Discharge Orders: Discharge Order (Routine); Ordered 12/02/21 Ordered By: Zuly Lewis Other Ambulatory Orders: Miscellaneous Procedure (Order) Location: None Selected Ordered By: Ezio Cerda Miscellaneous Procedure (Order) Location: None Selected Ordered By: Ezio Cerda Miscellaneous Procedure (Order) Location: None Selected Ordered By: Ezio Cerda Referrals: [facility] [Outside] [facility] [place] Ezio Cerda MD [Physician] - 12/06/21 8:20 am Jovani Mcnally [Primary Care Provider] - 12/02/21 3:20 pm Discharge Diet: Usual diet Discharge Activity: Resume usual activity Patient Instructions: Opioid Safety Activity Restrictions/Additional Instructions: Jevity 1.2 7 Cartons/day. Administer 3x/day for breakfast, lunch, and dinner 2 cartons each and a snack of 1 carton at night. Begin with 1 carton at night. Begin with 1 carton 3x/day for 3-4 days, then add second carton at each meal and one carton at night prior to bedtime. Water flushes 60 ml before and after feeding or per MD discretion. Discharge Attestations Time Spent in Discharge Care*: less than 30 min Quality Metrics Clinical Quality Measures [ No reported AMI, CVA or VTE this stay] Coding Level of Care Code Acute Chg FW DC note Diagnoses Paroxysmal atrial fibrillation with RVR I48.0 Oropharyngeal dysphagia R13.12 Supraglottic mass J38.7 Stridor R06.1 Dyspnea R06.00
--- NOTE | 2021-12-02 19:47 | PC.NURSE ---
this nurse was never able to give report toG. discharge packet sent with pt. pt safely left with ambulance personnel.
== END 2021-12-02 18:40 | disposition skilled nursing facility (03) | DRG 13 ==
LOC: ER 23:24 → ER IP 11-24 03:34 → OR 11-24 05:41 → ICU 11-24 08:12 → MEDSURG 11-27 16:31
PROVIDERS: Internal Medicine; Physician Assistant; Surgery; Admitting Provider Specialist; Emergency Provider Emergency Medicine; PCP Physician Assistant; Visit Provider Student in an Organized Health Care Education/Training Program
PROC: 0CBS8ZX Excision of Larynx, Via Natural or Artificial Opening Endoscopic, Diagnostic (ICD-10-PCS; principal; 2021-11-24 06:00)
PROC: 0CJS8ZZ Inspection of Larynx, Via Natural or Artificial Opening Endoscopic (ICD-10-PCS; 2021-11-24 06:00)
PROC: 0DJ08ZZ Inspection of Upper Intestinal Tract, Via Natural or Artificial Opening Endoscopic (ICD-10-PCS; CPT 43235; 2021-11-28 12:30)
PROC: 0DH63UZ Insertion of Feeding Device into Stomach, Percutaneous Approach (ICD-10-PCS; CPT 43246; 2021-11-28 12:30)
DX: C32.8 Malignant neoplasm of overlapping sites of larynx (principal); R13.12 Dysphagia, oropharyngeal phase; I48.0 Paroxysmal atrial fibrillation; Z86.73 Personal history of transient ischemic attack (TIA), and cerebral infarction without residual deficits; Z79.02 Long term (current) use of antithrombotics/antiplatelets; B96.1 Klebsiella pneumoniae [K. pneumoniae] as the cause of diseases classified elsewhere; E86.0 Dehydration
CPT/HCPCS: 12345; 36415; 36600; 43246; 70491; 71045; 74230; 80048; 80051; 80053; 82330; 82805; 83605; 83735; 83880; 84145; 84443; 84484; 85025; 85378; 85610; 85730; 87070; 87077; 87186; 87205; 87426; 88305; 88342; 92610; 92611; 93005; 93306; 94002; 94640; 94799; 96372; 96374; 96376; 97110; 97116; 97162; 97166; 97530; 97535; 99285; J0171; J0330; J1100; J1650; J2250; J2270; J2370; J2704; J2930; J3480; J3490; J7030; Q9967

== ENCOUNTER 2022-03-31 10:05 | Oncology outpatient (recurring) (ONCR) | payer MEDICARE, MEDICAID, SELFPAY | END 2022-03-31 23:59 | disposition home or self-care (01) | PROVIDERS: PCP Physician Assistant; Visit Provider Internal Medicine Medical Oncology | DX: C32.8 Malignant neoplasm of overlapping sites of larynx (principal); Z87.891 Personal history of nicotine dependence; F10.21 Alcohol dependence, in remission; Z93.0 Tracheostomy status; Z93.1 Gastrostomy status | CPT/HCPCS: 99204 ==

== ENCOUNTER 2022-04-21 09:00 | Oncology outpatient (recurring) (ONCR) | payer MEDICARE, MEDICAID, SELFPAY ==
--- NOTE | 2022-04-01 08:57 | N.ONRAD NP_ITS ---
Radiation Oncology Consultation Patient Name: Adarsh Pennington Date of : 1950 Date of Service: 04/01/2022 Attending Physician: Baljit Torrez M.D. Adarsh Pennington was seen in consultation this morning at the request of Eduardo Hayes M.D. for consideration of head and neck radiotherapy for the management of a supraglottic laryngeal cancer. He was evaluated at [facility] Emergency Department in November for dyspnea. A CT of the neck demonstrated a 3 cm x 2 cm x 2.1 cm left aryepiglottic fold soft tissue mass with erosion of the cricoid cartilage and thyroid cartilage. Severe glottic narrowing was reported. He was admitted for further management. A tracheotomy with laryngoscopy and biopsy was performed by Ezio Cerda M.D. Intraoperative findings described an epiglottic mass extending to the left false and true vocal cords and trachea. 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 A biopsy diagnosed a moderately differentiated, invasive, keratinizing, squamous cell carcinoma. An endoscopic-guided percutaneous gastrostomy tube was placed on November 28, 2021. The patient's postoperative course was complicated by atrial fibrillation with rapid ventricular rate managed with IV metoprolol. He was discharged from the hospital on December 02, 2021. A PET scan ordered on December 17, 2021 demonstrated FDG activity within the soft tissue surrounding the tracheostomy (SUV 8.5) without lymphadenopathy nor systemic metastatic disease. He was evaluated by Fawad Bang M.D. at [facility] in [place], [place] on February 17, 2022. Surgery was recommended but would be postponed until late spring as a consequence of scheduling. Subsequently, he was referred to Eduardo Aldana M.D. at [facility] [place] [facility] in [place], [place]. A CT scan of the neck and thorax completed on March 02, 2022 confirmed the laryngeal mass with erosion of the thyroid cartilage, possible left common carotid artery involvement, bilateral cervical lymphadenopathy, and enlarging right upper lobe pulmonary nodules. A CT-guided biopsy of the right upper lobe nodule obtained on March 18, 2022 at [facility] diagnosed a moderately differentiated, keratinizing, squamous cell carcinoma consistent with metastatic disease. He was evaluated for palliative radiotherapy. I discussed with Mr. Pennington the AJCC staging for supraglottic cancer and specifically the patient's clinical stage IVC ([id number]). I also discussed The National Comprehensive Cancer Network Guidelines endorsing palliative radiotherapy. I would recommend a two week course of radiotherapy. A CT scan for radiotherapy planning in the treatment position will be acquired prior to treatment. The potential toxicities of head and neck radiotherapy were reviewed. He has verbalized understanding would like to proceed as recommended. The patient's medical treatment plan has been discussed with Eduardo Hayes M.D. Signed by: Dr. Baljit Torrez 04/01/2022 9:51:56 AM
--- NOTE | 2022-04-05 | CT_ITS ---
Radiation Therapy Planning CT images; total exam DLP: 2185.32 mGy-cm MTDD
--- NOTE | 2022-04-11 09:34 | ONCRAD TMN_ITS ---
Radiation Oncology Treatment Management Note Patient Name: Adarsh Pennington Date of : 1950 Date of Service: 04/11/2022 Attending Physician: Baljit Torrez M.D. 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 He was evaluated at [facility]'s Emergency Department in November for dyspnea. A CT of the neck demonstrated a 3 cm x 2 cm x 2.1 cm left aryepiglottic fold soft tissue mass with erosion of the cricoid cartilage and thyroid cartilage. Severe glottic narrowing was reported. He was admitted for further management. A tracheotomy with laryngoscopy and biopsy was performed by Ezio Cerda M.D. Intraoperative findings described an epiglottic mass extending to the left false and true vocal cords and trachea. 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 A biopsy diagnosed a moderately differentiated, invasive, keratinizing, squamous cell carcinoma. An endoscopic-guided percutaneous gastrostomy tube was placed on November 28, 2021. The patient's postoperative course was complicated by atrial fibrillation with rapid ventricular rate managed with IV metoprolol. He was discharged from the hospital on December 02, 2021. A PET scan ordered on December 17, 2021 demonstrated FDG activity within the soft tissue surrounding the tracheostomy (SUV 8.5) without lymphadenopathy nor systemic metastatic disease. He was evaluated by Fawad Bang M.D. at [facility] in [place], [place] on February 17, 2022. Surgery was recommended but would be postponed until late spring as a consequence of scheduling. Subsequently, he was referred to Eduardo Aldana M.D. at [facility] in [place], [place]. A CT scan of the neck and thorax completed on March 02, 2022 confirmed the laryngeal mass with erosion of the thyroid cartilage, possible left common carotid artery involvement, bilateral cervical lymphadenopathy, and an enlarging right upper-lobe pulmonary nodules. A CT-guided biopsy of the right upper lobe nodule obtained on March 18, 2022 at [facility] diagnosed a moderately differentiated, keratinizing, squamous cell carcinoma consistent with metastatic disease. The patient has received 3 Gy of a prescribed 30 Gy with a 3D-GRAIN LOADER plan utilizing DAKOTA/WILSON wedge pair portal quiroz. Upon review of systems, he described dyspnea. On physical examination, the patient weighed 159 lbs. His temperature was 98 ???F and the blood pressure was 107/70 mmHg. The pulse was 91 bpm and his respiratory rate was 20. There was no erythema within the treatment quiroz. PEG tube did not have signs of infection. Continue palliative thoracic radiotherapy as prescribed. Signed by: Dr. Baljit Torrez 04/11/2022 9:40:29 AM
--- NOTE | 2022-04-18 09:36 | ONCRAD TMN_ITS ---
Radiation Oncology Treatment Management Note Patient Name: Adarsh Pennington Date of : 1950 Date of Service: 04/18/2022 Attending Physician: Baljit Torrez M.D. Adarsh Pennington is a 71 year-old white male diagnosed with clinical stage IVC ([id number]) supraglottic laryngeal cancer. He was evaluated at [facility] Emergency Department in November for dyspnea. A CT of the neck demonstrated a 3 cm x 2 cm x 2.1 cm left aryepiglottic fold soft tissue mass with erosion of the cricoid cartilage and thyroid cartilage. Severe glottic narrowing was reported. He was admitted for further management. A tracheotomy with laryngoscopy and biopsy was performed by Ezio Cerda M.D. Intraoperative findings described an epiglottic mass extending to the left false and true vocal cords and trachea. 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 A biopsy diagnosed a moderately differentiated, invasive, keratinizing, squamous cell carcinoma. An endoscopic-guided percutaneous gastrostomy tube was placed on November 28, 2021. The patient's postoperative course was complicated by atrial fibrillation with rapid ventricular rate managed with IV metoprolol. He was discharged from the hospital on December 02, 2021. A PET scan ordered on December 17, 2021 demonstrated FDG activity within the soft tissue surrounding the tracheostomy (SUV 8.5) without lymphadenopathy nor systemic metastatic disease. He was evaluated by Fawad Bang M.D. at [facility] in [place], [place] on February 17, 2022. Surgery was recommended but would be postponed until late spring as a consequence of scheduling. Subsequently, he was referred to Eduardo Aldana M.D. at [facility] in [place], [place]. A CT scan of the neck and thorax completed on March 02, 2022 confirmed the laryngeal mass with erosion of the thyroid cartilage, possible left common carotid artery involvement, bilateral cervical lymphadenopathy, and an enlarging right upper-lobe pulmonary nodules. A CT-guided biopsy of the right upper lobe nodule obtained on March 18, 2022 at [facility] diagnosed a moderately differentiated, keratinizing, squamous cell carcinoma consistent with metastatic disease. The patient has received 18 Gy of a prescribed 30 Gy with a 3D-TECHNICAL LEAD plan utilizing DAKOTA/WILSON wedge pair portal quiroz. Upon review of systems, he did not report any new symptoms. On physical examination, the patient weighed 151 lbs. His temperature was 97.8 ???F and the blood pressure was 107/67 mmHg. The pulse was 88 bpm and his respiratory rate was 20. There was no erythema within the treatment quiroz. PEG tube was clean. Continue palliative thoracic radiotherapy as planned. Signed by: Dr. Baljit Torrez 04/18/2022 9:35:41 AM
== END 2022-04-21 23:59 | disposition home or self-care (01) ==
PROVIDERS: PCP Physician Assistant; Visit Provider Radiology Radiation Oncology
DX: C32.1 Malignant neoplasm of supraglottis; C78.01 Secondary malignant neoplasm of right lung; Z51.0 Encounter for antineoplastic radiation therapy
CPT/HCPCS: 77014; 77263; 77290; 77295; 77300; 77334; 77336; 77387; 77412; 77427; 99214

== ENCOUNTER → 2022-04-27 13:58 | Outpatient (BNVA) | payer MEDICARE, MEDICAID, SELFPAY | PROVIDERS: Visit Provider Surgery | DX: C78.01 Secondary malignant neoplasm of right lung (principal) | CPT/HCPCS: 99213 ==

== ENCOUNTER 2022-05-03 05:49 | Day surgery (SDC) | payer MEDICARE, MEDICAID, SELFPAY ==
[2022-05-03] VITALS (7 sets, daily range): BP systolic 107–140; BP diastolic 69–82; PULSE 69–108; RESP 17–35; TEMP 36.6–36.9; O2SAT 95–100; BMI 20.4
--- NOTE | 2022-05-03 | SCC_ITS ---
Procedure done: 1. Placement of PowerPort via right subclavian vein 2. Fluoroscopic guidance and interpretation for placement of catheter 10.3 seconds of fluoroscopic guidance, for a cumulative dose of 1.32 mGy, was provided to Dr. Sanders by the radiology department. C-arm images of the chest were saved for the patient's permanent record. [facility]
--- NOTE | 2022-05-03 05:56 | SC_ITS ---
WS: [id number] C-arm fluoroscopy for Port-A-Cath insertion, 05/03/2022 Clinical Data: PowerPort placement Comparison: None. Findings: Dr. Sanders inserted a right Port-A-Cath which ends in the superior vena cava. SC/C-arm FL for CVA [id number] Impression: Right Port-A-Cath insertion.
--- NOTE | 2022-05-03 06:28 | W.PM.OPSUD ---
Surgery/Procedure H&P Update DATE OF PROCEDURE: May 03, 2022 DATE H&P PERFORMED: 04/27/22 H&P UPDATE INFORMATION: I have reviewed H&P completed within last 30 days, I have examined patient prior to procedure and No changes to prior documentation PREOP DIAGNOSIS: Laryngeal and lung cancer PRIMARY INDICATION FOR PROCEDURE: The same PLANNED PROCEDURE: Operation Date: 05/03/22 07:00 Proposed Procedures p Portacath Placement 21603,C32.8(Not Applicable) - Tristin Sanders MD
[2022-05-03] MEDS: sodium chloride 0.9% 1,000 ML 30 ML IV (06:51)
[2022-05-03] MEDS: ceFAZolin 2,000 MG in sodium chloride 0.9% (plus) 50 ML 100 MG IV (06:59)
[2022-05-03] MEDS: lidocaine 2% INJ 20 mL INJECTION (07:35)
[2022-05-03] MEDS: heparin, porcine 1,000 unit/mL INJ 10 mL 9000 UNIT INJECTION (07:49)
--- NOTE | 2022-05-03 07:53 | XR_ITS ---
WS: [id number] PORTABLE CHEST HISTORY: Status post right subclavian PowerPort placement COMPARISON: 11/29/2021 RIGHT subclavian Mediport has been placed with tip in the distal SVC near the atrial junction. Chronic emphysematous changes and dependent changes. More focal atelectasis at the RIGHT lung base. N o pleural effusion or pneumothorax. Suspect pleural calcification at the RIGHT costophrenic angle. Cardiac size: Normal. Mediastinum/Aorta: Mild atherosclerosis aorta. Tracheostomy. No osseous abnormality seen. XR/XR chest 1V portable [id number] IMPRESSION: 1. RIGHT subclavian Mediport with tip terminating near the atrial caval juncti on. 2. No complications.
[2022-05-03] MEDS: neomycin-poly-bacitracin oint 28 gm 1 APPLIC TOPICAL (07:54)
--- NOTE | 2022-05-03 07:54 | P.OP_ITS ---
Operative Report Date of procedure: May 03, 2022 Pre-op diagnosis: Preop Diagnosis Laryngeal and lung cancer Post-op diagnosis: same Procedure done: 1. Placement of PowerPort via right subclavian vein 2. Fluoroscopic guidance and interpretation for placement of catheter Surgeon: Tristin Sanders MD Ct Scan Technologist: Surgical techmallika Valderrama/Jamie neurosurgical physician assistant student Anesthesia: General (JEM Sharma and Sohail Shrestha/Dr. Alvares) Estimated blood loss (mL): 5 Procedure: RIGHT SUBCLAVIAN VEIN Patient was identified in the holding area and taken to the operative room and placed in supine position IV propofol was given by the anesthesia provider, tracheostomy tube was taken out by the anesthesia provider and endotracheal tube was placed and secured appropriately. both Arms were tucked,Time-out was done verifying the patient's name/date of /planned procedure and destination after the procedure, all were in agreement. SCDs confirmed to be functioning, preoperative antibiotics administered per protocol, and beta arik protocol was confirmed, appropriate positioning of the patient was done by me And the nursing staff. Medications were reviewed to assess for anticoagulant usage. Risks and benefits and prevention of central line associated blood stream infection (CLABSI) were discussed with the patient/CPOA, and a consent was obtained. Monitors were in place and monitored throughout the procedure. All necessary supplies were available prior to start. Hand hygiene was completed prior to starting. Maximum barrier technique was utilized including a sterile gown, sterile gloves with a hat and mask. Site was was prepped with [chlorhexidine] and a full body drape was placed. 5 mL of 2% lidocaine was injected into the skin with a 25 gauge needle. Prep& drape was done under the usual sterile technique, lidocaine 2% was injected at the site of the stick, started by right sub-clavian vein stick that retrieved venous blood was obtained from the first stick, a guide wire was then threaded and under the guidance of fluoroscopy position was confirmed to be in the IVC and my interpretation, there were no PVC changes, at that point the guide wire was secured to the drapes with a hemostat and the needle was taken out, attention was then deviated towards creation of a pocket for the port were lidocaine 2% was injected using an 15 blade knife skin incision was created dissection using the Bovie to create a pocket for the Power Port to be accommodated. Hemostasis was secured, after the port being appropriately flushed it was inserted into the pocket and a tunneler was used to accommodate the catheter of the port catheter to be delivered through the incision first created at the site of the stick, at that point under fluoroscopy an estimated length was measured for the catheter and was cut at the designed level, followed by that a dilator with the sheath introduced onto the guide wire the dilator and the wire were retrieved and the catheter of the port was introduced via the sheath where it was peeled off and the catheter maintained to be in the SVC that was confirmed with fluoroscopy, and the fluoroscopy interpretation was done by me throughout the entire procedure. The port was kept in its pocket,3-0 Vicryl deep subdermal interrupted sutures, skin was then closed by 4-0 Monocryl as subcuticular closure.The port was appropriately flushed with heparin and venous blood was withdrawn without difficulty.The stick site was closed by 4-0 Monocryl and Dermabond was used followed by dressing. I did notice that the patient has concerning lesions at the site of the tracheotomy,could represent local recurrence.Triple antibiotic ointment was applied Count was correct at the end of the procedure.Patient tolerated the procedure well was taken to the recovery area. I was present for the whole entire procedure. Position of the catheter was checked with a postoperative chest x-ray and it was in good position without evidence of pneumothorax.
--- NOTE | 2022-05-03 07:56 | ANES.PREANE2 ---
Pre-Anesthetic Assessment Height/Weight: Height 1.85 m Weight 70.307 kg Temp Pulse Resp BP Pulse Ox 98.5 F 108 H 18 107/78 98 05/03/22 06:28 05/03/22 06:28 05/03/22 06:28 05/03/22 06:28 05/03/22 06:28 Preop Diagnosis: Laryngeal and lung cancer Operation Date: 05/03/22 07:00 Proposed Procedures p Portacath Placement 89648,C32.8(Not Applicable) - Tristin Sanders MD Familial anesthetic complications: None Was Beta Danelle taken within 24 hours: N/A Was Clonidine taken within 24 hours: N/A Last intake: Intake Last Liquid Date 05/02/22 Last Liquid Time 19:00 Last Solid Date 05/02/22 Last Solid Time 19:00 Social No alcohol and No tobacco (h/o smoking) Exam alert, oriented x 3 and regular rate & rhythm Airway Comments: Comments: Mature trach Pulmonary Chronic Obstructive Pulmonary Disease and Cough Lung CA Neuropsych Cerebrovascular Accident Anesthetic Plan ASA status: 3 Anesthesia: General Medications/Allergies Home Medications Medication Instructions Recorded Confirmed Last Taken Type clopidogrel 75 mg tablet 75 mg PO DAILY 11/23/21 05/02/22 04/29/22 History hydrocodone 5 mg-acetaminophen 325 1 tab PO Q6H PRN #28 tab 05/03/22 Unknown Rx mg tablet Allergies Allergy/AdvReac Type Severity Reaction Status Date / Time No Known Allergies Allergy Verified 05/02/22 10:09 Current Medications Generic Name Dose Route Start Last Admin Trade Name Freq PRN Reason Stop Dose Admin Sodium Chloride 1,000 mls @ 30 mls/hr 05/03/22 06:00 05/03/22 06:51 Sodium Chloride 0.9% IV 05/04/22 05:59 30 mls/hr .Q24H YANA Administration PFSH Anesthesia Medical History History of stroke 1997 and 2018 Malignant neoplasm of overlapping sites of larynx Secondary malignant neoplasm of right lung Surgical History History of heart surgery Age 15 History of inguinal hernia repair S/P percutaneous endoscopic gastrostomy (PEG) tube placement Tracheostomy in place Family History Other Cancer Stroke Denies family history of Diabetes CAD (coronary artery disease) Clotting disorder Dementia Hyperlipidemia Psychiatric illness Chronic kidney disease (CKD) Suicide Anesthesia complication Bleeding disorder Lung disease Hypertension Social History Smoking and tobacco status: former smoker Alcohol intake: former Caregiver/support person: Yes Lives independently: No Household members: spouse Housing: House Data Anesthesia Cardiac Studies: Echocardiogram 11/28/21
--- NOTE | 2022-05-03 08:50 | SUR.PHASEI ---
0814 PT TO PACU 5 AWAKE ALERT PT HAS TRACH IN PLACE WITH 8L MASK TO TRACH, GOOD RESP EFFORT SATS 100% PT WITH NO DISTRESS,SITTING IN UPRIGHT POSITION, WITH PILLOW AND TOWEL ROLL TO SUPPORT NECK IV #22 TO RT MID FINGER PATENT NS 250ML AT KVO RATE PER GRAVITY. ID BAND TO LT WRIST, PT ID'D WITH 2 IDENTIFIERS. RT CHEST WITH 2 SITES DRESSING D/I 2X2 TO TRACH DRESSING D/I PT HAS RAW OPEN AREA UNDER TRACH, OR CLEANED AREA OINTMENT AND 2X2 TO SITE AND NEW TRACH TIES , BILAT SCDS ON . PT AWAKE AND COMMUNICATES NO PAIN OR NAUSEA.
--- NOTE | 2022-05-03 16:11 | ANE.PACU2 ---
Inpatient post-anesthesia follow up: Airway intact: Yes Vital signs: Temperature 98.2 F Pulse Rate 79 Respiratory Rate 18 Blood Pressure 125/69 Pulse Oximetry 95 Oxygen Delivery Me thod Room Air Oxygen Flow Rate 8 Fraction of Inspir ed Oxygen Hydration adequate: Yes Nausea and vomiting: No Pain level: 2 Mental status: Baseline
== END 2022-05-03 09:45 | disposition home or self-care (01) ==
PROVIDERS: Visit Provider Surgery
PROC: (CPT 36561; principal; 2022-05-03 07:00)
DX: C32.8 Malignant neoplasm of overlapping sites of larynx (principal); C34.90 Malignant neoplasm of unspecified part of unspecified bronchus or lung; J44.9 Chronic obstructive pulmonary disease, unspecified; Z86.73 Personal history of transient ischemic attack (TIA), and cerebral infarction without residual deficits
CPT/HCPCS: 36561; 71045; 76000; 77001; C1788; J1100; J1644; J2405; J3010; J7030

== ENCOUNTER 2022-05-10 01:27 | Emergency (ER) | payer MEDICARE, MEDICAID, SELFPAY ==
[2022-05-10 01:32] VITALS: BMI 17.6
--- NOTE | 2022-05-10 01:35 | CTR_ITS ---
PROCEDURE INFORMATION: Exam: CT Head Without Contrast Exam date and time: 05/10/2022 1:54 AM Age: 71 years old Clinical indication: Altered mental status/memory loss and other: Weakness; Patient HX: Per family, patient having transient weakness. Patient started chemotherapy yesterday for laryngeal/lung cancer. ; Additional info: AMS TECHNIQUE: Imaging protocol: Computed tomography of the head without contrast. Radiation optimization: All CT scans at this facility use at least one of these dose optimization techniques: automated exposure control; mA and/or kV adjustment per patient size (includes targeted exams where dose is matched to clinical indication); or iterative reconstruction. COMPARISON: CT head wo con* [id number] 03/22/2017 5:35 PM RADIATION DOSE METRICS: Total DLP (mGy-cm): 824.58 FINDINGS: Brain: There is no evidence of intracranial hemorrhage. There are moderate confluent periventricular hypodensities consistent with chronic microischemic changes of white matter . No mass effect or midline shift. There is a chronic lacunar infarct of the right centrum semiovale. No evidence of territorial edema. Cerebral ventricles: The ventricles and sulci are appropriate for the patient's age. Paranasal sinuses: There are no air-fluid levels. Mastoid air cells: The visualized mastoid air cells are well aerated. Bones/joints: No acute fracture. Soft tissues: Unremarkable. Vasculature: There is atherosclerotic calcification of intracranial internal carotid and vertebral arteries. CT/CT head wo con* [id number] IMPRESSION: 1. No acute intracranial findings. 2. Moderate cerebral small-vessel disease. 3. 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 4. Age-appropriate involutional changes of the brain.
--- NOTE | 2022-05-10 01:35 | ECG_ITS ---
[facility] Test Date: 2022-05-10 Pat Name: Adarsh Pennington Department: Room: Gender: Male Message Broker Developer: : 1950 Requested By: Tiara Raygoza Order Number: [id number] Rina MD: Alexa Solorio M.D. Measurements Intervals [place] Rate: 84 P: 75 NV: 145 QRS: 83 QRSD: 91 T: 61 QT: 354 QTc: 418 Interpretive Statements SINUS RHYTHM NONSPECIFIC T-WAVE ABNORMALITY Compared to ECG 11/23/2021 12:59:19 T-wave abnormality now present Electronically Signed On 05-10-2022 20:50:18 CDT by Alexa Solorio M.D. [id number]
[2022-05-10 01:37] VITALS: BP 101/57; PULSE 86; RESP 16; TEMP 36.7; O2SAT 98
--- NOTE | 2022-05-10 01:37 | W.ED.GENADLT ---
HPI - General Adult General: Chief complaint: General Medical Stated complaint: General eval Time Seen by Provider: 05/10/22 01:31 Source: EMS Mode of arrival: EMS Limitations: language barrier History of Present Illness: 71-year-old male has a history of laryngeal cancer he is currently on chemo he does have a trach in place as well and gets tube feedings the PEG tube. Patient's family called EMS tonight because they are concerned he had had bouts of energy and then some bouts of weakness and wanted him to be evaluated since he recently started chemo. Patient here is nonverbal but he is able to mouth words and right words he wrote out on a wine here and I feel fine. He is had no fevers he is following all my commands here. Review of Systems General: Reports: ROS unobtainable due to medical condition PFS ED PFSH: Medical History History of stroke 1996 and 2017 Malignant neoplasm of overlapping sites of larynx Secondary malignant neoplasm of right lung Surgical History History of heart surgery Age 15 History of inguinal hernia repair S/P percutaneous endoscopic gastrostomy (PEG) tube placement Tracheostomy in place Family History Other Cancer Stroke Denies family history of Diabetes CAD (coronary artery disease) Clotting disorder Dementia Hyperlipidemia Psychiatric illness Chronic kidney disease (CKD) Suicide Anesthesia complication Bleeding disorder Lung disease Hypertension Social History Smoking and tobacco status: current every day smoker (cigars) Alcohol intake: former Caregiver/support person: Yes Lives independently: No Household members: spouse Housing: House Physical Exam Const: COMMON NORMALS: no acute distress and healthy appearing HENMT: COMMON NORMALS: normocephalic and atraumatic HEAD & SCALP: normocephalic and atraumatic Eye: COMMON NORMALS: Equal, round and reactive pupils present and EOMs intact bilaterally PUPIL: Yes Equal, round and reactive pupils present Neck/C-Spine: COMMON NORMALS: full ROM and supple Chest: COMMONS NORMALS: normal inspection of the chest and normal palpation of entire chest wall Resp: COMMON NORMALS: normal respiratory effort, No retractions, No use of accessory muscles and clear to auscultation bilaterally AUSCULTATION: clear to auscultation bilaterally Cardio: COMMON NORMALS: regular rate, regular rhythm and No murmurs present (Cardio) RATE: regular rate RHYTHM: regular rhythm GI: COMMON NORMALS: Normal to inspection, nondistended, normoactive bowel sounds present, Soft to palpation, non-tender and no masses PALPATION: Yes Soft to palpation Extremity: COMMON NORMALS: normal to inspection and full ROM Neuro: COMMON NORMALS: moves all extremities and no focal motor deficits Psych: COMMON NORMALS: mental status grossly normal, Normal thought process present and cooperative THOUGHT PROCESS: Normal thought process present Skin: COMMON NORMALS: no rashes or lesions noted and no wounds GENERAL SKIN EXAM: no rashes or lesions noted Course Vital Signs: Vital signs: Vital Signs Temperature 98.1 F 05/10/22 01:37 Pulse Rate 86 05/10/22 01:37 Respiratory Rate 16 05/10/22 01:37 Blood Pressure 101/57 05/10/22 01:37 Pulse Oximetry 98 05/10/22 01:37 [facility] - General Adult Medical Decision Making Patient presents here with weakness at home here he is well-appearing he is at his baseline he had no complaints here blood work and CT head are normal he is stable for discharge back home at this time. Lab Data : 05/10/22 02:20 05/10/22 02:[address] 05/10/22 01:35 IMPRESSION: 1. No acute intracranial findings. 2. Moderate cerebral small-vessel disease. 3. 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 4. Age-appropriate involutional changes of the brain. Laboratory Results WBC 8.3 10^3/uL (4.0-10.0) 05/10/22 02:20 RBC 3.98 10^6/uL (4.1-5.3) L 05/10/22 02:20 Hgb 11.3 g/dL (11.7-16.6) L 05/10/22 02:20 Hct 33.9 % (42.0-52.0) L 05/10/22 02:20 MCV 85.2 fl (80-94) 05/10/22 02:20 MCH 28.4 pg (28.0-34.0) 05/10/22 02:20 MCHC 33.3 g/dL (30.0-36.0) 05/10/22 02:20 RDW 14.7 % (12.1-15.1) 05/10/22 02:20 Plt Count 261 10^3/cmm (130-400) 05/10/22 02:20 MPV 9.3 fL (7.4-10.4) 05/10/22 02:20 Neut % (Auto) 87.6 % 05/10/22 02:20 Lymph % (Auto) 5.3 % 05/10/22 02:20 [place] % (Auto) 6.7 % 05/10/22 02:20 Eos % (Auto) 0.0 % 05/10/22 02:20 Baso % (Auto) 0.0 % 05/10/22 02:20 Neut # (Auto) 7.31 10^3/uL (1.8-7.7) 05/10/22 02:20 Lymph # (Auto) 0.4 10^3/uL (0.8-4.8) L 05/10/22 02:20 [place] # (Auto) 0.6 10^3/uL (0.2-0.9) 05/10/22 02:20 Eos # (Auto) 0.0 10^3/uL (0.0-0.8) 05/10/22 02:20 Baso # (Auto) 0.0 10^3/uL (0.0-0.1) 05/10/22 02:20 Nucleated RBC % (auto) 0 % 05/10/22 02:20 Nucleated RBCs # 0.0 /100WBC 05/10/22 02:20 Sodium 135 mmol/L (136-145) L 05/10/22 02:20 Potassium 4.0 mmol/L (3.5-5.1) 05/10/22 02:20 Chloride 99 mmol/L (98-107) 05/10/22 02:20 Carbon Dioxide 27 mmol/L (22-29) 05/10/22 02:20 Anion Gap 13.0 (5-19) 05/10/22 02:20 BUN 15 mg/dL (8-23) 05/10/22 02:20 Creatinine 0.5 mg/dL (0.7-1.2) L 05/10/22 02:20 GFR Calculation Not Reportable 05/10/22 02:20 Glucose 109 mg/dL (65-115) 05/10/22 02:20 Calculated Osmolality 281 mOsm/kg (285-295) L 05/10/22 02:20 Calcium 8.3 mg/dL (8.5-10.5) L 05/10/22 02:20 Total Bilirubin 0.3 mg/dL (0.15-1.2) 05/10/22 02:20 AST 13 U/L (0-40) 05/10/22 02:20 ALT 9 U/L (0-41) 05/10/22 02:20 Alkaline Phosphatase 111 IU/L (40-130) 05/10/22 02:20 Total Protein 5.9 g/dL (6.6-8.7) L 05/10/22 02:20 Albumin 3.1 g/dL (3.5-5.2) L 05/10/22 02:20 Globulin 2.8 g/dL (1.3-4.6) 05/10/22 02:20 EKG Data EKG 1: I personally reviewed and interpreted this EKG as follows: EKG interpretation date: 05/10/22 EKG interpretation time: 02:20 Interpretation: nsr hr [address] or t wave abnormalities qrs 91 qtc 394 Computer generated interpretation: Head CT 05/10/22 01:35 IMPRESSION: 1. No acute intracranial findings. 2. Moderate cerebral small-vessel disease. 3. 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 4. Age-appropriate involutional changes of the brain. Discharge Plan Discharge Patient Disposition: Home Clinical Impression: Weakness, Malignant neoplasm of overlapping sites of larynx Condition: Stable Prescriptions: No Action clopidogrel 75 mg tablet 75 mg PO DAILY 0RF Hold Instructions: Resume on 05/06/22. hydrocodone-acetaminophen 5-325 mg tablet 1 tab PO Q6H PRN (Reason: pain) Qty: 28 0RF Discharge Orders: Discharge ED (Routine); Ordered 05/10/22 Ordered By: Tiara Raygoza Discharge Diet: Advance as tolerated Discharge Activity: Resume usual activity Patient Instructions: Weakness (ED) Coding Level of Care Code ED Production Stage Manager for Chg Fwd Exam Comprehensive
[2022-05-10 02:28] LABS: Hematocrit 33.9 % (42.0-52.0); Hemoglobin 11.3 g/dL (11.7-16.6); Lymphocytes # 0.4 10^3/uL (0.8-4.8); Lymphocytes % 5.3 %; Mean Corpuscular HGB Conc 33.3 g/dL (30.0-36.0); Mean Corpuscular Hemoglobin 28.4 pg (28.0-34.0); Mean Corpuscular Volume 85.2 fl (80-94); Mean Platelet Volume 9.3 fL (7.4-10.4); Monocytes # 0.6 10^3/uL (0.2-0.9); Monocytes % 6.7 %; Neutrophils # 7.31 10^3/uL (1.8-7.7); Neutrophils % 87.6 %; Nucleated Red Blood Cells % 0 %; Platelet Count 261 10^3/cmm (130-400); Red Blood Count 3.98 10^6/uL (4.1-5.3); Red Cell Distribution Width 14.7 % (12.1-15.1); White Blood Count 8.3 10^3/uL (4.0-10.0)
[2022-05-10 02:47] LABS: Alanine Aminotransferase 9 U/L (0-41); Albumin Level 3.1 g/dL (3.5-5.2); Alkaline Phosphatase 111 IU/L (40-130); Aspartate Amino Transferase 13 U/L (0-40); Blood Urea Nitrogen 15 mg/dL (8-23); Calcium 8.3 mg/dL (8.5-10.5); Carbon Dioxide 27 mmol/L (22-29); Chloride 99 mmol/L (98-107); Globulin 2.8 g/dL (1.3-4.6); Glucose 109 mg/dL (65-115); Osmolality Calculated 281 mOsm/kg (285-295); Sodium 135 mmol/L (136-145); Total Bilirubin 0.3 mg/dL (0.15-1.2); Total Protein 5.9 g/dL (6.6-8.7)
--- NOTE | 2022-05-10 07:05 | PC.NURSE ---
PT IS RESTING IN BED AWAKE. PT IS IN NAD.
[2022-05-10 07:55] VITALS: PULSE 105; RESP 20; O2SAT 96
== END 2022-05-10 07:56 | disposition home or self-care (01) ==
PROVIDERS: Emergency Provider Emergency Medicine
DX: R53.1 Weakness (principal); C32.8 Malignant neoplasm of overlapping sites of larynx; Z79.02 Long term (current) use of antithrombotics/antiplatelets; Z86.73 Personal history of transient ischemic attack (TIA), and cerebral infarction without residual deficits; Z85.118 Personal history of other malignant neoplasm of bronchus and lung; F17.210 Nicotine dependence, cigarettes, uncomplicated; Z79.899 Other long term (current) drug therapy; Z93.0 Tracheostomy status; Z93.1 Gastrostomy status
CPT/HCPCS: 70450; 80053; 85025; 93005; 99284

== ENCOUNTER 2022-05-11 09:29 | Emergency (ER) | payer MEDICARE, MEDICAID, SELFPAY ==
[2022-05-11 09:38] VITALS: BP 100/60; PULSE 84; RESP 15; O2SAT 95
--- NOTE | 2022-05-11 10:03 | XR_ITS ---
WS: [id number] XR chest 1V portable [id number] REASON FOR EXAM: dyspnea/cough FINDINGS: The chest is essentially unchanged compared to 05/03/2022. Chemotherapy infusion port over the right chest with right subclavian vein catheter with the tip in t he superior vena cava. Tracheostomy tube in place. Right pleural plaques some of which are calcified. Calcified granulomatous disease in both hemithoraces. There are reticular interstitial opacities in both lower lungs most notably on the right. These appea r to be chronic in nature. XR/XR chest 1V portable [id number] IMPRESSION: Chronic appearing pleural and lung changes. Chest appears stable compared to 09/2022.
--- NOTE | 2022-05-11 10:08 | W.ED.GENADLT ---
HPI - General Adult General: Chief complaint: General Medical Stated complaint: TRACHEOSTOMY PROBLEMS Time Seen by Provider: 05/11/22 09:56 Source: patient Mode of arrival: ambulatory Limitations: no limitations History of Present Illness: 71-year-old male presents emergency room with a tracheostomy. Patient has malignant neoplasm of the lung and extending to the larynx he had laryngectomy and has a tracheostomy tube in place he has had problems with it clogging he has mucous plugging and is unable to clear it at home presents to the emergency room his vital signs are stable at this time. He is unable to speak although the history is obtained through yes/no questions he declined to write answers for us. Onset (ago): unknown Location: neck Severity: moderate Pain Consistency: constant Relieving factors: none Exacerbating factors: none Associated symptoms: Reports dyspnea and short of breath; Deny chest pain or fevers/chills Treatments prior to arrival: none Review of Systems General: Reports: ROS unobtainable due to medical condition Card: Denies: chest pain Resp: Reports: dyspnea PFSH ED PFSH: Medical History History of stroke 1996 and 2017 Malignant neoplasm of overlapping sites of larynx Secondary malignant neoplasm of right lung Surgical History History of heart surgery Age 15 History of inguinal hernia repair S/P percutaneous endoscopic gastrostomy (PEG) tube placement Tracheostomy in place Family History Other Cancer Stroke Denies family history of Diabetes CAD (coronary artery disease) Clotting disorder Dementia Hyperlipidemia Psychiatric illness Chronic kidney disease (CKD) Suicide Anesthesia complication Bleeding disorder Lung disease Hypertension Social History Smoking and tobacco status: current every day smoker (cigars) Alcohol intake: former Caregiver/support person: Yes Lives independently: No Household members: spouse Housing: House Physical Exam Const: GENERAL APPEARANCE: cooperative and comfortable NUTRITIONAL APPEARANCE: thin ORIENTATION/CONSCIOUSNESS: Yes awake HENMT: COMMON NORMALS: normocephalic, atraumatic and hearing grossly normal bilaterally HEAD & SCALP: normocephalic and atraumatic OTHER: Tracheostomy in place crusted mucus present surrounding skin appears normal Neck/C-Spine: COMMON NORMALS: no JVD Resp: AUSCULTATION: wheezes Cardio: COMMON NORMALS: no JVD, regular rate, regular rhythm and No murmurs present (Cardio) RATE: regular rate RHYTHM: regular rhythm Extremity: COMMON NORMALS: normal to inspection, capillary refill normal, no clubbing, cyanosis or edema, no calf tenderness and no pedal edema Skin: COMMON NORMALS: no rashes or lesions noted GENERAL SKIN EXAM: no rashes or lesions noted Course Vital Signs: Vital signs: Vital Signs Pulse Rate 84 05/11/22 09:38 Respiratory Rate 15 05/11/22 09:38 Blood Pressure 100/60 05/11/22 09:38 Pulse Oximetry 95 05/11/22 09:38 Oxygen Delivery Me thod 05/11/22 09:38 MDM - General Adult Medical Decision Making Respiratory therapy attempted to perform maintenance on the trach were unable to get the stylette in place not able to suction out any mucus. Called Dr. Matt office he is agreed to see the patient this morning he is off with correctly issues. We will discharge patient from the ER to Dr. Matt office staff will escort him there. Medical Records I reviewed the patient's medical records. Lab Data I reviewed the patient's lab results. Radiology Impressions Chest X-Ray 05/11/22 10:03 IMPRESSION: Chronic appearing pleural and lung changes. Chest appears stable compared to 05/03/2022. Discharge Plan Discharge Patient Disposition: Home Clinical Impression: Tracheostomy care, Malignant neoplasm of overlapping sites of larynx, Secondary malignant neoplasm of right lung, Tracheostomy in place Condition: Stable Prescriptions: No Action clopidogrel 75 mg tablet 75 mg PO DAILY Hold Instructions: Resume on 05/06/22. hydrocodone-acetaminophen 5-325 mg tablet 1 tab PO Q6H PRN (Reason: pain) Qty: 28 0RF Discharge Orders: Discharge ED (Routine); Ordered 05/11/22 Ordered By: Narinder Aaron Patient Instructions: Opioid Safety Activity Restrictions/Additional Instructions: Discharged to Dr. Matt's office for definitive tracheostomy care Coding Level of Care Code ED Catapult And Arresting Gear Officer for Chg Fwd Exam Detailed
== END 2022-05-11 10:58 | disposition home or self-care (01) ==
PROVIDERS: Emergency Provider Family Medicine
DX: Z43.0 Encounter for attention to tracheostomy (principal); C32.8 Malignant neoplasm of overlapping sites of larynx; C78.01 Secondary malignant neoplasm of right lung; Z79.02 Long term (current) use of antithrombotics/antiplatelets; Z86.73 Personal history of transient ischemic attack (TIA), and cerebral infarction without residual deficits; F17.210 Nicotine dependence, cigarettes, uncomplicated
CPT/HCPCS: 71045; 99203; 99283

== ENCOUNTER → 2022-05-11 10:52 | Outpatient (BNVA) | payer MEDICARE, MEDICAID, SELFPAY | PROVIDERS: Visit Provider Otolaryngology | DX: Z43.0 Encounter for attention to tracheostomy (principal); C32.8 Malignant neoplasm of overlapping sites of larynx; F17.290 Nicotine dependence, other tobacco product, uncomplicated | CPT/HCPCS: 99203 ==

== ENCOUNTER 2022-05-16 08:00 | Oncology outpatient (recurring) (ONCR) | payer MEDICARE, MEDICAID, SELFPAY ==
--- NOTE | 2022-04-22 09:04 | N.ONRD TS_ITS ---
Radiation OncologyTreatment Summary Patient Name: Adarsh Pennington Date of : 1950 Date of Service: 04/22/2022 Attending Physician: Baljit Torrez M.D. Adarsh Pennington has completed palliative radiation therapy for the management of a clinical stage IVC ([id number]) supraglottic laryngeal cancer. He was evaluated at [facility]'s Emergency Department in November for dyspnea. A CT of the neck demonstrated a 3 cm x 2 cm x 2.1 cm left aryepiglottic fold soft tissue mass with erosion of the cricoid cartilage and thyroid cartilage. Severe glottic narrowing was reported. He was admitted for further management. A tracheotomy with laryngoscopy and biopsy was performed by Ezio Cerda M.D. Intraoperative findings described an epiglottic mass extending to the left false and true vocal cords and trachea. 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 A biopsy diagnosed a moderately differentiated, invasive, keratinizing, squamous cell carcinoma. An endoscopic-guided percutaneous gastrostomy tube was placed on November 28, 2021. The patient's postoperative course was complicated by atrial fibrillation with rapid ventricular rate managed with IV metoprolol. He was discharged from the hospital on December 02, 2021. A PET scan ordered on December 17, 2021 demonstrated FDG activity within the soft tissue surrounding the tracheostomy (SUV 8.5) without lymphadenopathy nor systemic metastatic disease. He was evaluated by Fawad Bang M.D. at [facility] in [place], [place] on February 17, 2022. Surgery was recommended but would be postponed until late spring as a consequence of scheduling. Subsequently, he was referred to Eduardo Aldana M.D. at [facility] in [place], [place]. A CT scan of the neck and thorax completed on March 02, 2022 confirmed the laryngeal mass with erosion of the thyroid cartilage, possible left common carotid artery involvement, bilateral cervical lymphadenopathy, and an enlarging right upper-lobe pulmonary nodules. A CT-guided biopsy of the right upper lobe nodule obtained on March 18, 2022 at [facility] diagnosed a moderately differentiated, keratinizing, squamous cell carcinoma consistent with metastatic disease. Daily radiotherapy was administered between the dates April 11, 2022 through April 22, 2022. A prescribed dose of 30 Gy was delivered in 10 fractions encompassing 11 elapsed days. The supraglottic mass was treated utilizing a 3-dimensional conformal radiotherapy plan with a DAKOTA/WILSON wedge pair field design. The wedge pair quiroz were designed with gantry angles of 40??? and 320??? and an enhanced dynamic wedge of 20???. The DAKOTA field measured 7 cm x 7 cm within the X-direction and 6 cm x 6 cm within the Y-direction. The measured SSD was 94.8 cm. The field delivered 96 monitor units. Low-energy photons were prescribed. An additional port was created to allocate 85 MU with 15 MV energy. The WILSON port spanned 7 cm x 7 cm within the X-direction 6 cm x 6 cm within the Y-direction. The SSD was 94.5 cm administering 97 monitor units with 6 MV photons administered. A supplemental field was arranged that allotted 86 MU with high-energy photons. All treatments were performed with the Plovgh linear accelerator and an isocentric technique. The dose was calculated by Anisotropic Analytic Algorithm. The plan was normalized to deliver 100% of the prescription dose to 95% of the planning target volume. Signed by: Dr. Baljit Torrez 04/22/2022 9:02:02 AM
[2022-05-09 08:57] LABS: Basophils % 0.2 %; Eosinophils # 0.1 10^3/uL (0.0-0.8); Eosinophils % 1.1 %; Hematocrit 37.1 % (42.0-52.0); Hemoglobin 12.3 g/dL (11.7-16.6); Lymphocytes # 0.8 10^3/uL (0.8-4.8); Lymphocytes % 14.8 %; Mean Corpuscular HGB Conc 33.2 g/dL (30.0-36.0); Mean Corpuscular Hemoglobin 27.8 pg (28.0-34.0); Mean Corpuscular Volume 83.7 fl (80-94); Mean Platelet Volume 9.6 fL (7.4-10.4); Monocytes # 0.5 10^3/uL (0.2-0.9); Neutrophils # 4.05 10^3/uL (1.8-7.7); Neutrophils % 74.7 %; Nucleated Red Blood Cells % 0 %; Platelet Count 285 10^3/cmm (130-400); Red Blood Count 4.43 10^6/uL (4.1-5.3); Red Cell Distribution Width 14.6 % (12.1-15.1); White Blood Count 5.4 10^3/uL (4.0-10.0)
[2022-05-09 09:16] LABS: Alanine Aminotransferase 10 U/L (0-41); Albumin Level 3.4 g/dL (3.5-5.2); Alkaline Phosphatase 130 IU/L (40-130); Anion Gap 14.5 (5-19); Aspartate Amino Transferase 14 U/L (0-40); Blood Urea Nitrogen 7 mg/dL (8-23); Calcium 8.4 mg/dL (8.5-10.5); Carbon Dioxide 27 mmol/L (22-29); Chloride 95 mmol/L (98-107); Globulin 3.2 g/dL (1.3-4.6); Glucose 91 mg/dL (65-115); Osmolality Calculated 274 mOsm/kg (285-295); Potassium 3.5 mmol/L (3.5-5.1); Sodium 133 mmol/L (136-145); Total Bilirubin 0.5 mg/dL (0.15-1.2); Total Protein 6.6 g/dL (6.6-8.7)
[2022-05-09] MEDS: sodium chloride 0.9% 250 ML 100 ML IV (10:40)
[2022-05-09] MEDS: diphenhydrAMINE 50 mg/mL SDV 1mL 25 MG IVP (10:40)
[2022-05-09] MEDS: famotidine 20 mg/2 mL INJ IVP (10:41)
[2022-05-09] MEDS: palonosetron 0.25 mg/5 mL SDV IVP (10:46)
[2022-05-09] MEDS: acetaminophen 650 mg/20.3 mL UDC PO (10:49)
[2022-05-09] MEDS: pembrolizumab 200 MG in sodium chloride 0.9% 250 ML 516 MG IV (11:10)
[2022-05-09] MEDS: CARBOplatin 750 MG in sodium chloride 0.9% 500 ML 575 MG IV (11:50)
[2022-05-09 13:34] VITALS: BP 126/76; PULSE 79; TEMP 36.9; O2SAT 99
--- NOTE | 2022-05-10 15:59 | PC.NURSE ---
Patient presented to clinic this morning at 0900 with stating the port chemotherapy pump must be removed as patient was in ER all night with confusion. Patient assessed and appears appropriate. Dr. Hayes in to see patient awaiting to speak with regarding patient situation.
--- NOTE | 2022-05-10 16:10 | PC.NURSE ---
Patient returned to clinic at 2pm demanding that port chemotherapy be removed. Pump discontinued as per Dr. Hayes.
[2022-05-16 08:56] LABS: Basophils % 0.7 %; Eosinophils % 0.5 %; Hematocrit 35.5 % (42.0-52.0); Hemoglobin 11.5 g/dL (11.7-16.6); Lymphocytes # 0.8 10^3/uL (0.8-4.8); Lymphocytes % 13.5 %; Mean Corpuscular HGB Conc 32.4 g/dL (30.0-36.0); Mean Corpuscular Hemoglobin 27.6 pg (28.0-34.0); Mean Corpuscular Volume 85.1 fl (80-94); Mean Platelet Volume 9.2 fL (7.4-10.4); Monocytes # 0.2 10^3/uL (0.2-0.9); Monocytes % 3.8 %; Neutrophils # 4.61 10^3/uL (1.8-7.7); Neutrophils % 80.6 %; Nucleated Red Blood Cells % 0 %; Platelet Count 254 10^3/cmm (130-400); Red Blood Count 4.17 10^6/uL (4.1-5.3); Red Cell Distribution Width 14.6 % (12.1-15.1); White Blood Count 5.7 10^3/uL (4.0-10.0)
[2022-05-16 09:19] LABS: Alanine Aminotransferase 12 U/L (0-41); Albumin Level 3.7 g/dL (3.5-5.2); Alkaline Phosphatase 117 IU/L (40-130); Anion Gap 13.9 (5-19); Aspartate Amino Transferase 19 U/L (0-40); Blood Urea Nitrogen 17 mg/dL (8-23); Calcium 8.9 mg/dL (8.5-10.5); Carbon Dioxide 30 mmol/L (22-29); Chloride 91 mmol/L (98-107); Globulin 3.1 g/dL (1.3-4.6); Glucose 102 mg/dL (65-115); Osmolality Calculated 274 mOsm/kg (285-295); Potassium 3.9 mmol/L (3.5-5.1); Sodium 131 mmol/L (136-145); Total Bilirubin 0.6 mg/dL (0.15-1.2); Total Protein 6.8 g/dL (6.6-8.7)
[2022-05-16 09:23] LABS: Creatinine Clr Calc Pharmacy 87.0727
== END 2022-05-22 23:59 | disposition home or self-care (01) ==
PROVIDERS: Internal Medicine Medical Oncology; Nurse Practitioner Family; PCP Physician Assistant; Visit Provider Radiology Radiation Oncology
DX: C32.8 Malignant neoplasm of overlapping sites of larynx (principal); Z87.891 Personal history of nicotine dependence
CPT/HCPCS: 36591; 77014; 77336; 77387; 77412; 77427; 80053; 85025; 96367; 96375; 96413; 96416; 96417; 96523; 99214; 99215; J1100; J1200; J2469; J3490; J7040; J7050; J9045; J9190; J9271